=== PATIENT | female | born 1965 | race Caucasian/White ===

== ENCOUNTER 2020-08-24 19:03 | Outpatient (REF) | payer MEDICAID, SELFPAY ==
--- NOTE | 2020-08-24 19:45 | MR_ITS ---
EXAMINATION: MR LUMBAR SPINE WITHOUT CONTRAST CLINICAL INFORMATION: Spondylolisthesis. Sacroiliitis. COMPARISON: None available. TECHNIQUE: MRI of the lumbar spine was obtained using routine sequences without contrast. FINDINGS: Transitional vertebral anatomy. There is partial lumbarization of S1 with a rudimentary S1-S2 disc space. Minimal degenerative grade 1 anterolisthesis of L4 on L5. Otherwise, normal anatomic alignment. Mild degenerative disc disease from L2-L5 with partial disc desiccation. Mild marrow edema within the posterior elements of L5 suggestive of degenerative stress reaction. Otherwise, normal homogeneous marrow signal. The vertebral body heights are maintained. The conus medullaris is low-lying, terminating at the level of L3. No demonstrated distal spinal cord signal abnormalities. No demonstrated fatty deposition within the filum terminale. No significant abnormalities of the paraspinal musculature. Limited evaluation of the intra-abdominal structures without significant abnormalities. The abdominal aorta is of normal contour and caliber. AXIAL SPINAL LEVELS: T9-T10: Prominent central/left subarticular disc extrusion causing moderate spinal canal stenosis and mass effect on the cord. T12-L1: Shallow right subarticular protrusion. There is mild bilateral facet joint arthropathy. There is no neural foraminal stenosis. There is no spinal canal stenosis. L1-L2: Shallow diffuse disc bulge. There is mild bilateral facet joint arthropathy. There is no neural foraminal stenosis. There is no spinal canal stenosis. L2-L3: Shallow diffuse disc bulge. There is moderate bilateral facet joint arthropathy. There is no neural foraminal stenosis. There is no spinal canal stenosis. L3-L4: Shallow diffuse disc bulge. There is moderate bilateral facet joint arthropathy. There is no neural foraminal stenosis. There is no spinal canal stenosis. L4-L5: Mild diffuse disc bulge. There is severe bilateral facet joint arthropathy with ligamentum flavum hypertrophy. There is mild bilateral neural foraminal stenosis. There is mild to moderate spinal canal stenosis. L5-S1: Mild diffuse disc bulge. There is severe right and moderate left facet joint arthropathy. There is moderate right and mild left neural foraminal stenosis. There is no spinal canal stenosis. MR/MR lumbar spine wo con IMPRESSION: Transitional vertebral anatomy. There is partial lumbarization of S1. Detailed level verification should be obtained prior to any procedures. 1. Prominent disc extrusion at T9-T10 causing moderate spinal canal stenosis and mass effect on the distal spinal cord. 2. The spinal cord is mildly low lying with tip terminating at the level of L3. No demonstrated fatty deposition within the filum terminale. 3. Moderate multilevel degenerative spondyloarthropathy of the lumbar spine as described in detail above. There is mild to moderate spinal canal stenosis at L4-L5. Mild to moderate neural foraminal stenoses at L4-L5 and L5-S1 (worst on the right at L5-S1).
== END 2020-08-24 19:04 | disposition home or self-care (01) ==
LOC: HO.MRI 19:03
PROVIDERS: PCP Emergency Medicine; Visit Provider Emergency Medicine
DX: M43.10 Spondylolisthesis, site unspecified (principal); M46.1 Sacroiliitis, not elsewhere classified
CPT/HCPCS: 72148

== ENCOUNTER 2020-11-01 15:24 | Outpatient (REF) | payer MEDICAID, SELFPAY | END 2020-11-01 15:25 | disposition home or self-care (01) | LOC: HO.LAB 15:24 | PROVIDERS: Visit Provider Internal Medicine | DX: Z20.822 Contact with and (suspected) exposure to COVID-19 (principal) | CPT/HCPCS: 36415; C9803; U0003 ==

== ENCOUNTER 2020-12-18 13:55 | Inpatient (IN) | payer MEDICAID, SELFPAY ==
--- NOTE | ~2020-12-18 | CT_ITS ---
EXAMINATION: CT ABDOMEN AND PELVIS WITHOUT CONTRAST CLINICAL INFORMATION: Abdominal pain, vomiting. Multiple surgeries. COMPARISON: 08/07/2010. MRI lumbar spine dated 08/24/2020 TECHNIQUE: Multidetector volumetric imaging was performed from the superior aspect of the liver through the pubic symphysis. Sagittal and coronal reformatted images were obtained on the technologist's workstation. This CT examination was performed using dose optimization techniques as appropriate, variously including the following: *Automated exposure control *Adjustment of mA and/or kV according to patient size (this includes techniques or standardized protocols for targeted exams where dose is matched to indication/reason for exam; i.e. extremities or head) *Use of iterative reconstruction technique DLP: 461 mGy-cm FINDINGS: LUNG BASES: The visualized lung bases are unremarkable. LIVER, GALLBLADDER, AND BILIARY TREE: The liver is normal in size, shape, and attenuation. Stable 1.2 cm cysts, subcapsular aspect of hepatic segment 7. No suspicious hepatic lesion or biliary ductal dilatation is present. c cholecystectomy. PANCREAS: Unremarkable. SPLEEN: Unremarkable. ADRENAL GLANDS: Unremarkable. KIDNEYS AND URETERS: The kidneys are normal in size, shape, and attenuation. No hydronephrosis, hydroureter, or calculi seen. No perinephric stranding. BLADDER: Unremarkable. GASTROINTESTINAL TRACT / ABDOMINAL WALL: There is a large periumbilical hernia containing a nonobstructed portion of the transverse colon, as well as a segment of the distal ileum. The herniated portion of the distal ileum is moderately dilated, however the efferent and afferent limbs of the small bowel are not dilated. The herniated loop of small bowel shows evidence of previous small bowel small bowel anastomosis. No significant enteric or perienteric inflammation. Diastasis of the rectus abdominis. LYMPH NODES: Normal. VASCULAR: Aorta mildly atherosclerotic but normal caliber.. PELVIC VISCERA: Uterus and adnexa unremarkable. OSSEOUS STRUCTURES: No acute or suspicious osseous abnormalities. CT/CT abdomen pelvis wo con IMPRESSION: Again seen is a large paraumbilical hernia containing a segment of the nonobstructed transverse colon and a loop of nonobstructed previously operated on distal ileum. No evidence of obstruction.
[2020-12-18 14:22] VITALS: BP 128/98; PULSE 86; RESP 18; TEMP 36.8; O2SAT 98; BMI 30.1
--- NOTE | 2020-12-18 15:37 | ED.GENADULT ---
HPI - General Adult General Chief complaint: Abdominal Pain Stated complaint: abd pain Time Seen by Provider: 12/18/20 15:18 Source: patient Mode of arrival: ambulatory Limitations: no limitations History of Present Illness HPI narrative: 55-year-old female who presents emergency department for evaluation diffuse abdominal pain x4 days. The patient states that she has developed a diffuse, burning sensation throughout her entire abdomen, worse in her lower abdominal area which is been intermittent. She also feels pain in her lower back. She denied nausea or vomiting. She states she has had loss of appetite. She has noted increased urinary frequency with no dysuria. She states she had 1 loose diarrheal stool today with no blood noted in the stool. The patient states that she has had multiple surgeries and has had 2 bowel obstructions in the past. She is concerned that she may have a bowel obstruction again today. The patient states she was having back pain 1 or 2 weeks prior and was started on Voltaren, was then started on prednisone with some improvement of her lower back pain. The patient has a surgical history of an appendectomy, cholecystectomy, C-sections x4, hernia repair, bilateral tubal ligation. Related Data Allergies Allergy/AdvReac Type Severity Reaction Status Date / Time penicillin V Allergy Intermediate rash Unverified 12/18/20 14:21 Penicillins Allergy Intermediate SWELLING, Unverified 12/18/20 14:21 WELASHLI Review of Systems Review of Systems: Yes all other systems are reviewed and are negative Neurologic: Reports Abnormal speech present [facility] Past Medical History [facility] Narrative: Past medical history separate hypertension, GERD, appendectomy, cholecystectomy, x4, bilateral tubal ligation, hernia repair, bowel obstructions x2. The patient denies tobacco, alcohol and drug use. Medical History (Updated 12/18/20 @ 17:17 by Timothy Ibarra MD) Abdominal pain Anemia Asthma Bowel obstruction HTN (hypertension) Hypertension Recurrent incisional hernia Surgical History Hx of appendectomy Hx of cholecystectomy Social History Social History Advance Directives: No Advance Directives Information Provided: Yes Physical Exam Vital Signs: Vital Signs: Last Vital Signs Temp 98.3 F 12/18/20 14:22 Pulse 86 12/18/20 14:22 Resp 18 12/18/20 14:22 BP 128/98 H 12/18/20 14:22 Pulse Ox 98 12/18/20 14:22 Body Mass Index 30.1 Const: General: cooperative Orientation/consciousness: oriented to person and oriented to place Limitations: no limitations HENMT: Head: Yes normal to inspection, Yes normocephalic and Yes atraumatic Ears: external ears normal General nose exam: Normal external nose present Face and sinus: Yes normal facial exam Mouth: Normal oral and palatal mucosa present Throat: Yes posterior oropharynx normal Eyes: Periorbital: periorbital findings normal Eyelids: Yes eyelids normal Conjunctivae: conjunctivae normal Sclerae: sclerae normal Corneas: corneas normal Pupils: Equal, round and reactive pupils present Direct Ophthalmoscopy: normal light reflex Neck: Neck: Yes full ROM, Yes no lymphadenopathy, Yes no meningeal signs, Yes trachea midline and Yes supple Chest: Chest palpation & inspection: normal inspection of the chest and normal palpation of entire chest wall Resp: Effort & Inspection: normal respiratory effort and able to speak in complete sentences Auscultation: clear to auscultation bilaterally Cardio: Rate: regular rate Rhythm: regular rhythm Heart sounds: S1 normal heart sound present, S2 normal heart sound present and no murmurs GI: Palpation (GI): Soft to palpation, Tenderness to palpation present (GI) (Diffuse, increased over her left lower quadrant hernia), no guarding, not rigid and No hepatosplenomegaly present : General: Yes no CVA tenderness Back/Spine/Pelvis: Back: no CVA tenderness Cervical Spine: normal cervical lordosis Thoracic/Lumbar Spine: thoracic and lumbar spine normal to inspection Skin: Lesions: no lesions Rashes: no rashes Wounds: no wounds Neuro: General: oriented to person, oriented to place and no meningeal signs Cranial nerves: Yes CN's II-XII intact bilaterally and Yes Equal, round and reactive pupils present Cognition (Neuro): normal cognition Speech: Abnormal speech present Motor exam (neuro): 5/5 motor strength present throughout Extrem: General: Yes normal to inspection and Yes full ROM Psych: Appearance: well kempt Mental Status: mental status grossly normal Speech and movement: Normal speech and movement present Affect: normal affect Attitude: cooperative Thought process: Normal thought process present Thought content: Normal thought content present Course Course Course Narrative: 55-year-old female with a history of multiple surgeries and bowel obstructions in the past who presents emergency department for evaluation of 4 days of diffuse burning like abdominal pain associated with loss of appetite. She has had no nausea or vomiting. She did have a loose diarrheal stool today. Physical examination did reveal diffuse tenderness with increased tenderness over a left lower quadrant hernia which is large. Concerned that the patient may have a bowel obstruction. Did order laboratory evaluation and a CT abdomen pelvis with IV contrast. Patient was ordered to get Dilaudid 1 mg IV for pain. She was also given Zofran 4 mg IV . She was ordered to get normal saline x1 L IV as well. 1655: The patient's laboratory evaluation revealed a low white blood count of 4400, slightly elevated BUN of 24, negative COVID-19, otherwise unremarkable results. The CT scan of the patient's abdomen pelvis did not reveal a clear bowel obstruction. The patient got some improvement with IV Dilaudid but her pain has not returned. She was ordered to get a 2nd dose of Dilaudid 1 mg IV. I did consult the on-call surgeon, Dr. Anmol Gorman who did evaluate the patient. Dr. Gorman well that the patient to his service for further management of her abdominal pain. 1717: Patient's urinalysis is pending, I did sign the patient over to my colleague, Dr. Emilie Sharp to follow up on this result. Medical Decision Making Lab Data Result diagrams: 12/18/20 15:54 12/18/20 15:54 Labs: Lab Results 12/18/20 12/18/20 12/18/20 Range/Units 15:54 15:54 15:54 WBC 4.4 L (4.8-10.8) X10*3/uL RBC 4.94 (4.20-5.50) X10*6/uL Hgb 13.7 (12.0-16.0) g/dl Hct 40.9 (37-47) % MCV 82.8 (80-98) fL MCH 27.7 (27.0-33.0) pg MCHC 33.5 (31.0-35.0) g/dl RDW 13.4 (11.0-16.0) % Plt Count 311 (160-400) X10*3/uL MPV 9.5 (9.4-12.3) fL Immature Gran % (Auto) 0.2 (0.0-0.4) % Neut % (Auto) 58.0 (45-73) % Lymph % (Auto) 32.4 (20-40) % [place] % (Auto) 7.6 (2-11) % Eos % (Auto) 0.9 (0-4) % Baso % (Auto) 0.9 (0-2) % Lymph # (Auto) 1.4 (1.2-4.9) X10*3/uL [place] # (Auto) 0.3 (0.1-1.2) X10*3/uL Eos # (Auto) 0.0 (0.0-0.4) X10*3/uL Baso # (Auto) 0.0 (0.0-0.2) X10*3/uL Abs Immat Gran (auto) 0.01 (0.00-0.03) X10*3/uL Absolute Neuts (auto) 2.5 (2.0-8.3) X10*3/uL Absolute Nucleated RBC 0.000 (0.0-0.012) X10*3/uL Nucleated RBC % (auto) 0.0 (0.0-0.2) /100WBC PT 14.1 H (10.8-13.0) SEC INR 1.2 H (0.9-1.1) APTT 32.6 (24.1-38.0) SEC Sodium 139 (135-145) mmol/L Potassium 3.8 (3.3-5.1) mmol/L Chloride 97 (96-108) mmol/L Carbon Dioxide 29 (22-29) mmol/L Anion Gap 17 (12-20) BUN 24 H (9-16) mg/dL Creatinine 0.99 (0.5-1.4) mg/dL Estim Creat Clear Calc 51.9 Estimated GFR 58 Random Glucose 98 (60-115) mg/dL Lactic Acid (0.5-2.0) mmol/L Calcium 10.0 (8.4-10.2) mg/dL Total Bilirubin 0.6 (0.0-1.0) mg/dL AST 18 (5-31) U/L ALT 16 (0-31) U/L Alkaline Phosphatase 96 (39-117) U/L Total Protein 8.1 H (6.5-8.0) g/dL Albumin 5.0 (3.5-5.0) g/dL Lipase 54 (8-78) U/L COVID-19 (TONIE) (Negative) COVID-19 Clin Com 12/18/20 12/18/20 Range/Units 15:54 15:54 WBC (4.8-10.8) X10*3/uL RBC (4.20-5.50) X10*6/uL Hgb (12.0-16.0) g/dl Hct (37-47) % MCV (80-98) fL MCH (27.0-33.0) pg MCHC (31.0-35.0) g/dl RDW (11.0-16.0) % Plt Count (160-400) X10*3/uL MPV (9.4-12.3) fL Immature Gran % (Auto) (0.0-0.4) % Neut % (Auto) (45-73) % Lymph % (Auto) (20-40) % [place] % (Auto) (2-11) % Eos % (Auto) (0-4) % Baso % (Auto) (0-2) % Lymph # (Auto) (1.2-4.9) X10*3/uL [place] # (Auto) (0.1-1.2) X10*3/uL Eos # (Auto) (0.0-0.4) X10*3/uL Baso # (Auto) (0.0-0.2) X10*3/uL Abs Immat Gran (auto) (0.00-0.03) X10*3/uL Absolute Neuts (auto) (2.0-8.3) X10*3/uL Absolute Nucleated RBC (0.0-0.012) X10*3/uL Nucleated RBC % (auto) (0.0-0.2) /100WBC PT (10.8-13.0) SEC INR (0.9-1.1) APTT (24.1-38.0) SEC Sodium (135-145) mmol/L Potassium (3.3-5.1) mmol/L Chloride (96-108) mmol/L Carbon Dioxide (22-29) mmol/L Anion Gap (12-20) BUN (9-16) mg/dL Creatinine (0.5-1.4) mg/dL Estim Creat Clear Calc Estimated GFR Random Glucose (60-115) mg/dL Lactic Acid 1.1 (0.5-2.0) mmol/L Calcium (8.4-10.2) mg/dL Total Bilirubin (0.0-1.0) mg/dL AST (5-31) U/L ALT (0-31) U/L Alkaline Phosphatase (39-117) U/L Total Protein (6.5-8.0) g/dL Albumin (3.5-5.0) g/dL Lipase (8-78) U/L COVID-19 (TONIE) Negative (Negative) COVID-19 Clin Com See Note Imaging Data CT abdomen/pelvis with IV contrast: Radiologist's impression: EXAMINATION: CT ABDOMEN AND PELVIS WITHOUT CONTRAST CLINICAL INFORMATION: Abdominal pain, vomiting. Multiple surgeries. COMPARISON: 08/07/2010. MRI lumbar spine dated 08/24/2020 TECHNIQUE: Multidetector volumetric imaging was performed from the superior aspect of the liver through the pubic symphysis. Sagittal and coronal reformatted images were obtained on the technologist's workstation. This CT examination was performed using dose optimization techniques as appropriate, variously including the following: *Automated exposure control *Adjustment of mA and/or kV according to patient size (this includes techniques or standardized protocols for targeted exams where dose is matched to indication/reason for exam; i.e. extremities or head) *Use of iterative reconstruction technique DLP: 461 mGy-cm FINDINGS: LUNG BASES: The visualized lung bases are unremarkable. LIVER, GALLBLADDER, AND BILIARY TREE: The liver is normal in size, shape, and attenuation. Stable 1.2 cm cysts, subcapsular aspect of hepatic segment 7. No suspicious hepatic lesion or biliary ductal dilatation is present. c cholecystectomy. PANCREAS: Unremarkable. SPLEEN: Unremarkable. ADRENAL GLANDS: Unremarkable. KIDNEYS AND URETERS: The kidneys are normal in size, shape, and attenuation. No hydronephrosis, hydroureter, or calculi seen. No perinephric stranding. BLADDER: Unremarkable. GASTROINTESTINAL TRACT / ABDOMINAL WALL: There is a large periumbilical hernia containing a nonobstructed portion of the transverse colon, as well as a segment of the distal ileum. The herniated portion of the distal ileum is moderately dilated, however the efferent and afferent limbs of the small bowel are not dilated. The herniated loop of small bowel shows evidence of previous small bowel small bowel anastomosis. No significant enteric or perienteric inflammation. Diastasis of the rectus abdominis. LYMPH NODES: Normal. VASCULAR: Aorta mildly atherosclerotic but normal caliber.. PELVIC VISCERA: Uterus and adnexa unremarkable. OSSEOUS STRUCTURES: No acute or suspicious osseous abnormalities. CT/CT abdomen pelvis wo con IMPRESSION: Again seen is a large paraumbilical hernia containing a segment of the nonobstructed transverse colon and a loop of nonobstructed previously operated on distal ileum. No evidence of obstruction. Dictated By:LISBET MCKINNON MDSigned By:<Electronically signed by LISBET MCKINNON MD in [place]>12/18/20 1649 DD/ 1536TD/TT: [employer]uation Funds Manager: KEISHA Discharge Plan Discharge Clinical Impression: Abdominal pain Patient Disposition: Admitted As Inpatient
[2020-12-18 16:04] LABS: MANUAL DIFF FLAG NO
[2020-12-18 16:05] LABS: Basophils Percent Auto 0.9 % (0-2); Eosinophils Percent Auto 0.9 % (0-4); Hematocrit 40.9 % (37-47); Hemoglobin 13.7 g/dl (12.0-16.0); Imm Gran Abs Auto 0.01 X10*3/uL (0.00-0.03); Imm Gran Pct Auto 0.2 % (0.0-0.4); Lymphocytes Absolute Auto 1.4 X10*3/uL (1.2-4.9); Lymphocytes Percent Auto 32.4 % (20-40); Mean Corpuscular HGB Conc 33.5 g/dl (31.0-35.0); Mean Corpuscular Hemoglobin 27.7 pg (27.0-33.0); Mean Corpuscular Volume 82.8 fL (80-98); Mean Platelet Volume 9.5 fL (9.4-12.3); Monocytes Absolute Auto 0.3 X10*3/uL (0.1-1.2); Monocytes Percent Auto 7.6 % (2-11); Neutrophils Absolute Auto 2.5 X10*3/uL (2.0-8.3); Platelet Count 311 X10*3/uL (160-400); Red Blood Count 4.94 X10*6/uL (4.20-5.50); Red Cell Distribution Width 13.4 % (11.0-16.0); White Blood Count 4.4 X10*3/uL (4.8-10.8)
[2020-12-18 16:13] LABS: INTERNATIONAL NORM RATIO 1.2 (0.9-1.1); Prothrombin Time 14.1 SEC (10.8-13.0)
[2020-12-18 16:15] LABS: Partial Thromboplastin Time 32.6 SEC (24.1-38.0)
[2020-12-18] MEDS: HYDROmorphone HCl 1 MG/ML SYRINGE IVPUSH ×2 (16:17→17:24)
[2020-12-18] MEDS: 0.9 % Sodium Chloride 1,000 ML 999 ML IV (16:17)
[2020-12-18] MEDS: ondansetron HCL 4 MG/2 ML VIAL IVPUSH (16:17)
[2020-12-18 16:19] LABS: COVID-19 Test Negative (Negative)
[2020-12-18 16:21] LABS: Lactic Acid 1.1 mmol/L (0.5-2.0)
[2020-12-18 16:27] LABS: Alanine Aminotransferase 16 U/L (0-31); Alkaline Phosphatase 96 U/L (39-117); Anion Gap 17 (12-20); Aspartate Amino Transferase 18 U/L (5-31); Bilirubin Total 0.6 mg/dL (0.0-1.0); Blood Urea Nitrogen 24 mg/dL (9-16); Carbon Dioxide 29 mmol/L (22-29); Chloride 97 mmol/L (96-108); Creatinine Clr Calc Pharmacy 51.9; Estimated Glomerular Filt Rate 58; Glucose Random 98 mg/dL (60-115); Lipase 54 U/L (8-78); Potassium 3.8 mmol/L (3.3-5.1); Sodium 139 mmol/L (135-145); Total Protein 8.1 g/dL (6.5-8.0)
--- NOTE | 2020-12-18 16:48 | P.HPGS_ITS ---
History of Present Illness History of Present Illness Date of Service: 12/19/20 Chief complaint: abdominal pain, incisional hernia Narrative: Keren Dugan is a 55 year old female who came to the ED today because of abdominal pain. She says this ahs been going on for 5 days. She says she had talked to her PCP via a virtual visit yesterday and she was told she may have a UTI. However, her pain had persisted so she decided to come to he ED today,. She has had no vomitting although she describes some n[place]asea. She describes some loose stools even earlier today. She says she has been passing flatus consistently. She has had multiple abdominal surgeries. She describes 4 Csections, appe ndectomy, cholecystectomy and repair of incisional hernias x 2(?). reviewe of her records shows she ahd a laparotomy and repair of a ncarcerated incisional hernia with SB resection in [address] Simon. Review of Systems Constitutional: Constitutional: Denies chills and Denies fever(s) Cardiovascular: Cardiovascular: Denies chest pain, Denies dyspnea and Denies dyspnea on exertion Respiratory: Respiratory: Denies cough, Denies dyspnea and Denies dyspnea on exertion Gastrointestinal: Gastrointestinal: Denies hematochezia and Denies change in bowel habits Genitourinary: Genitourinary: Denies hematuria Musculoskeletal: Musculoskeletal: Denies back pain and Denies limited range of motion Neurologic: Denies focal weakness and Denies convulsions Psychiatric: Psychiatric: Denies depression and Denies mood swings PMFSH Past Medical History Medical History (Updated 12/18/20 @ 17:30 by Anmol Gorman MD) Abdominal pain Anemia Asthma Bowel obstruction Fibromyalgia HTN (hypertension) Hypertension Recurrent incisional hernia Surgical History Surgical History Hx of appendectomy Hx of cholecystectomy Social History Social History Household Members: None Housing: Apartment Do you presently have visiting nurse or other home services: No Smoking Status: Never smoker Smoked in Last 30 Days: No Use of substances other than those prescribed or required for medical reasons: No Have you been hit, kicked, punched, or otherwise hurt by someone within the past year? If so, by whom?: No Do you feel safe in your current relationship?: No Is there a partner from a previous relationship who is making you feel unsafe now?: No Are you made to feel afraid or neglected: No Advance Directives: No Advance Directives Information Provided: Yes Do you have thoughts of harming others: None Do you have a plan to hurt others: No Plan Recently lost weight without trying: Yes Meds Allergies Allergy/AdvReac Type Severity Reaction Status Date / Time penicillin V Allergy Intermediate rash Unverified 12/18/20 14:21 Penicillins Allergy Intermediate SWELLING, Unverified 12/18/20 14:21 WELTS Home Medications Medication Instructions Recorded Confirmed Last Taken Type hydrochlorothiazide 1 tab PO DAILY 12/18/20 12/18/20 Unknown History hyoscyamine 0.125 mg PO Q2-4H PRN 12/18/20 12/18/20 Unknown History Physical Exam Vital Signs: Vital Signs: Last Vital Signs Temp 98.3 F 12/18/20 14:22 Pulse 86 12/18/20 14:22 Resp 18 12/18/20 14:22 BP 128/98 H 12/18/20 14:22 Pulse Ox 98 12/18/20 14:22 Body Mass Index 30.1 Chemistry 12/18/20 15:54 Sodium 139 Potassium 3.8 Carbon Dioxide 29 BUN 24 H Creatinine 0.99 Calcium 10.0 Hematology 12/18/20 15:54 WBC 4.4 L Hgb 13.7 Plt Count 311 Const: Other: appears a little anxious General: no acute distress Orientation/consciousness: patient oriented x3 Neck: Neck: Yes no lymphadenopathy Resp: Auscultation: clear to auscultation bilaterally Cardio: Rhythm: regular rhythm GI: Other: large hernia, below umbilicus, easily reducible some tenderness but no guarding or rebound Palpation (GI): Soft to palpation and nontender Neuro: General: patient oriented x3 Extrem: General: No edema Results Results Labs: Short CBC 12/18/20 Range/Units 15:54 WBC 4.4 L (4.8-10.8) X10*3/uL Hgb 13.7 (12.0-16.0) g/dl Hct 40.9 (37-47) % Plt Count 311 (160-400) X10*3/uL BMP 12/18/20 15:54 Sodium 139 Potassium 3.8 Chloride 97 Carbon Dioxide 29 BUN 24 H Creatinine 0.99 Calcium 10.0 Liver Function 12/18/20 Range/Units 15:54 Total Bilirubin 0.6 (0.0-1.0) mg/dL AST 18 (5-31) U/L ALT 16 (0-31) U/L Alkaline Phosphatase 96 (39-117) U/L Albumin 5.0 (3.5-5.0) g/dL Abdomen CT scan report/results: report reviewed and image reviewed Assessment and Plan (1) Abdominal pain: Problem details: I have reviewed her CT scan images. This does not show any acute intraabdominal process. She has a large abdominal wall hernia with nonobstructed bowel loops. The fascial defect itself may be causing her pain. There is no inflammatory process that is seen. She does not have any vomitting and she is passing good flatus. I will admit her inv iew of her abdominal pain as he does state she is very uncomfortable with this and has been asking for pain meds. I will keep her NPO for now. Status: Acute (2) Recurrent incisional hernia: Problem details: Her hernia is easily reduced. Her CT scan shows bowel loops in the hernia that are nonobstructed. She says she thinks her hernia has been getting larger years now and has been more uncomfortable. I did assure her that she did not have any acute incarceration or obstruction at this time. Status: Acute Procedures Date of Service Date of Service: 12/19/20
[2020-12-18 17:23] VITALS: BP 144/86; PULSE 77; RESP 16; O2SAT 98
[2020-12-18] MEDS: Heparin Sodium,Porcine 5,000 UNIT/ML VIAL 5000 UNIT SUBCUT (17:25)
[2020-12-18] MEDS: 0.9 % Sodium Chloride 1,000 ML 100 ML IVCONT (17:41)
[2020-12-18] MEDS: Morphine Sulfate 2 MG/ML CARTRIDGE IVPUSH ×2 (19:13→22:24)
--- NOTE | 2020-12-18 19:14 | PC.NURSE ---
ASSUMED CARE OF PT. PT C/O ABD AND MEDICATED PER EMAR. PT AWAITING FOR ROOM ASSIGNMENT. PT ALERT, RESPIRATIONS EASY, N/L. SKIN W/D. WILL CONTINUE TO MONITOR PT.
[2020-12-18 21:48] VITALS: BP 135/74; PULSE 72; RESP 16
--- NOTE | 2020-12-18 21:52 | PC.NURSE ---
PT UP TO RESTROOM AND FORGOT URINE SAMPLE WILL CONTINUE TO TRY AND GET SAMPLE. PT UP WITH STEADY EVEN GAIT. PT C/O PAIN AND RATING PAIN 5/10. FLUIDS UP ON PUMP PER EMAR. HL INTACT. VS OBTAINED. PT REMAINS ALERT, RESPIRATIONS EASY, N/L. SKIN W/D. WILL CONTINUE TO MONITOR PT,
[2020-12-19] MEDS: 0.9 % Sodium Chloride Flush 3 ML SYRINGE IVFLUSH ×2 (00:17→08:20)
--- NOTE | 2020-12-19 00:22 | PC.NURSE ---
FLOOR UNABLE TO TAKE REPORT AT THIS TIME.
--- NOTE | 2020-12-19 01:22 | PC.NURSE ---
REPORT TO FLOOR. PT AWAITING FOR TRANSPORT TO FLOOR.
[2020-12-19 02:23] VITALS: BP 134/73; PULSE 76; RESP 18; TEMP 36.6; O2SAT 96
[2020-12-19] MEDS: 0.9 % Sodium Chloride 1,000 ML 100 ML IVCONT ×2 (02:31→11:20)
[2020-12-19 05:40] LABS: MANUAL DIFF FLAG NO
[2020-12-19 05:53] LABS: Basophils Percent Auto 0.6 % (0-2); Eosinophils Percent Auto 0.8 % (0-4); Hematocrit 34.9 % (37-47); Hemoglobin 11.6 g/dl (12.0-16.0); Imm Gran Abs Auto 0.01 X10*3/uL (0.00-0.03); Imm Gran Pct Auto 0.2 % (0.0-0.4); Lymphocytes Absolute Auto 1.7 X10*3/uL (1.2-4.9); Lymphocytes Percent Auto 32.6 % (20-40); Mean Corpuscular HGB Conc 33.2 g/dl (31.0-35.0); Mean Corpuscular Hemoglobin 27.6 pg (27.0-33.0); Mean Corpuscular Volume 83.1 fL (80-98); Mean Platelet Volume 9.9 fL (9.4-12.3); Monocytes Absolute Auto 0.4 X10*3/uL (0.1-1.2); Monocytes Percent Auto 6.7 % (2-11); Neutrophils Absolute Auto 3.1 X10*3/uL (2.0-8.3); Neutrophils Percent Auto 59.1 % (45-73); Platelet Count 262 X10*3/uL (160-400); Red Cell Distribution Width 13.3 % (11.0-16.0); White Blood Count 5.2 X10*3/uL (4.8-10.8)
[2020-12-19] MEDS: Heparin Sodium,Porcine 5,000 UNIT/ML VIAL 5000 UNIT SUBCUT (06:05)
[2020-12-19 06:31] LABS: Anion Gap 11 (12-20); Blood Urea Nitrogen 18 mg/dL (9-16); Calcium 8.3 mg/dL (8.4-10.2); Carbon Dioxide 29 mmol/L (22-29); Chloride 103 mmol/L (96-108); Creatinine Clr Calc Pharmacy 73.4; Estimated Glomerular Filt Rate > 60; Glucose Random 76 mg/dL (60-115); Potassium 3.6 mmol/L (3.3-5.1); Sodium 139 mmol/L (135-145)
[2020-12-19 07:23] VITALS: BP 163/90; PULSE 80; RESP 17; TEMP 36.2; O2SAT 98
[2020-12-19] MEDS: hydroCHLOROthiazide 12.5 MG TABLET PO (08:20)
--- NOTE | 2020-12-19 10:18 | PM.PNGS ---
Subjective Subjective Date of Service: 12/19/20 Interval history: feels much better pain had completely resolved last night she says she wants to eat and says she feels ready to go home Physical Exam Vital Signs: Vital Signs: Last Vital Signs Temp 97.2 F 12/19/20 07:23 Pulse 80 12/19/20 07:23 Resp 17 12/19/20 07:23 BP 163/90 H 12/19/20 07:23 Pulse Ox 98 12/19/20 07:23 Body Mass Index 30.1 Chemistry 12/18/20 12/19/20 15:54 04:48 Sodium 139 139 Potassium 3.8 3.6 Carbon Dioxide 29 29 BUN 24 H 18 H Creatinine 0.99 0.70 Calcium 10.0 8.3 L D Hematology 12/18/20 12/19/20 15:54 04:48 WBC 4.4 L 5.2 Hgb 13.7 11.6 L Plt Count 311 262 Const: General: comfortable and no acute distress Resp: Effort & Inspection: normal respiratory effort Cardio: Rhythm: regular rhythm GI: Other: soft, nondistended, palpable alrge hernia, reasily reducible, no tenderness Progress Note: A&P Assessment and plan (1) Abdominal pain: Status: Acute Assessment and Plan: Her pain has resolved completely Abdominal exam is very benign She has a large chronic hernia which is reducible easily Will restart diet Likely home later on today Patient looks well Etiology of pain uncertain - she was not obstructed on CT scan; pain may be from stretching of fascia and peritoneum with the hernia I did instruct her to see me in the office follow-up for her large reducible hernia She was comfortable with the above plan Fall Risk Details Current Medications: Current Medications Generic Name Dose Route Start Last Admin Trade Name Freq PRN Reason Stop Dose Admin Heparin Sodium (Porcine) 5,000 unit 12/18/20 18:00 12/19/20 06:05 Heparin Sodium,Porcine 5,000 Unit/Ml Vial SUBCUT 5,000 unit Q12H ADARSH Administration Hydrochlorothiazide 12.5 mg 12/19/20 09:00 12/19/20 08:20 Hydrochlorothiazide 12.5 Mg Tablet PO 12.5 mg DAILY ADARSH Administration Protocol Sodium Chloride 1,000 mls @ 100 mls/hr 12/18/20 17:15 12/19/20 02:31 Ns IVCONT 100 mls/hr .Q10H ADARSH Administration Morphine Sulfate 2 mg 12/18/20 17:15 12/18/20 22:24 Morphine Sulfate 2 Mg/Ml Cartridge IVPUSH 2 mg Q3H PRN Administration pain Ondansetron HCl 4 mg 12/18/20 17:15 Ondansetron Hcl 4 Mg/2 Ml Vial IVPUSH Q8H PRN nausea Pharmacy Consult 1 each 12/18/20 17:05 Consult Rx Perform Med Rec MISCELLANE ONCE PRN Consult order Sodium Chloride 3 ml 12/19/20 00:00 12/19/20 08:20 0.9 % Sodium Chloride Flush 3 Ml Syringe IVFLUSH 3 ml QSHIFT ADARSH Administration Time Spent With Patient Time: Total time spent is greater than 50% in coordination of care (as documented) at patient's floor/unit and/or counseling patient: Time with patient: 15 - 24 minutes Procedures Date of Service Date of Service: 12/19/20
[2020-12-19 11:36] VITALS: BP 140/90; PULSE 89; RESP 18; TEMP 36.4; O2SAT 98
[2020-12-19 11:39] LABS: Glucose Urine UA NEG (NEG); Leukocyte Esterase Urine NEG (NEG); Nitrite Urine NEG (NEG); Urine Blood NEG (NEG); Urine Ketones NEG (NEG); Urine Protein NEG (NEG-TRACE)
[2020-12-19 11:44] LABS: Appearance Urine CLEAR; Color Urine YELLOW
[2020-12-19 13:44] LABS: OBS Int Ctl Valid YES; OBS1 NEG (NEG)
--- NOTE | 2020-12-19 14:12 | MHC.CM.PN ---
PT REPORTS SHE LIVES ALONE AND IS FULLY INDEPENDENT. PT HAS NO IN HOME SERVICES AND NO DME. PT REPORTS SHE DOES NOT HAVE A HCP AND IS NOT INTERESTED IN COMPLETING ONE AT THIS TIME. A BLANK DOCUMENT AND INFORMATION WERE PROVIDED. PTS PCP IS VASU ANGEL. CURRENT DC PLAN IS HOME WITH NO SERVICES PT REPORTS SHE HAS A RIDE HOME
[2020-12-19 15:13] VITALS: BP 139/77; PULSE 94; RESP 19; TEMP 36.4; O2SAT 97
--- NOTE | 2020-12-19 15:45 | PM.EVENT ---
Event Note Date of Service: 12/19/20 Event Note: continues to feel well says she ate a lot no abdl pain at all no N/V abd soft, hernia reducible, nontender ok to nc home says she feels ready she says she will see me in the office for a ffup for her recurrent hernia
--- NOTE | 2020-12-21 12:20 | P.DS_ITS ---
DS: Providers Provider Date of Service: 12/21/20 Date of admission: 12/18/20 17:12 Primary care physician: Armando Salgado MD DS: Diagnosis Discharge Diagnosis (1) Abdominal pain: Status: Acute (2) Recurrent incisional hernia: Status: Acute DS: Medications Discharge Medications Home Medications: Home Medications Medication Instructions Recorded Confirmed hydrochlorothiazide 1 tab PO DAILY 12/18/20 12/18/20 hyoscyamine 0.125 mg PO Q2-4H PRN 12/18/20 12/18/20 DS: Summary Hospital Course Hospital Course: BRIEF HPI: Keren Dugan is a 55 year old female who came to the ED today because of abdominal pain for 5 days. She had talked to her PCP via a virtual visit yesterday and she was told she may have a UTI. However, her pain had persisted so she decided to come to the ED today. She has had no vomiting although she describes some nausea and some loose stools even earlier today. She says she has been passing flatus consistently. She has had multiple abdominal surgeries including 4 Csections, appendectomy, cholecystectomy and repair of incisional hernias x 2(?). Review of her records shows she had a laparotomy and repair of a incarcerated incisional hernia with SB resection [place] [address] Simon. HOSPITAL COURSE: She was admitted to the surgical service for further treatment of her abdominal pain. Her CT scan images does not show any acute intraabdominal process. Her large abdominal wall hernia does contain nonobstructed bowel loops and this was easily reducible. She had no obstructive symptoms. It was thought that maybe the fascial defect itself may be causing her pain. She was kept NPO and started on IVF. The following day, the patient reported complete resolution of her abdominal pain with a bowel movement. She felt hungry. She was started on a solid diet. She was reassessed later in the day and she continued to feel well without any abdominal pain, nausea or vomiting. Her abdomen remained benign. She felt ready for discharge. She was discharged to home on 12/19/20 in stable condition. The etiology of her pain remained uncertain, as she was not obstructed on CT sca n; pain may be from stretching of fascia and peritoneum with the hernia. She is to follow up with Dr. Gorman in the office regarding the large, reducible hernia. Status at Discharge Functional status at discharge: independent ambulation Overall status at discharge: patient is back to baseline Time Spent with Patient Time attestation: Total time spent providing and/or coordinating discharge services: Discharge coordination time: Less than 30 minutes Physical Exam Vital Signs: Vital Signs: Last Vital Signs Temp 97.5 F 12/19/20 15:13 Pulse 94 12/19/20 15:13 Resp 19 12/19/20 15:13 BP 139/77 12/19/20 15:13 Pulse Ox 97 12/19/20 15:13 Body Mass Index 30.1 Const: General: comfortable, no acute distress and alert Orientation/consciousness: patient oriented x3 Eyes: Sclerae: sclerae normal Resp: Effort & Inspection: normal respiratory effort GI: Inspection: No distended Palpation (GI): Soft to palpation, nontender, no guarding, not rigid, Hernia present (inferior to umbilicus, soft and reducible) and No Rebound tenderness present Percussion: Yes normal to percussion Skin: General skin exam: no rashes or lesions noted Neuro: General: patient oriented x3 Extrem: General: Yes no clubbing, cyanosis or edema DS: Data Data Completed and Pending Labs on day of discharge: Preliminary micro results at discharge 12/18/20 16:19 Blood Culture - Preliminary Blood - Venous No growth after 48 hours. 12/18/20 15:55 Blood Culture - Preliminary Blood - Venous No growth after 48 hours. Discharge Plan Discharge Patient Disposition: Home, Self-Care Referrals: Name,MD Armando [Primary Care Provider] - Discharge Medications: Continued hydrochlorothiazide 25 mg tablet 1 tab PO DAILY RF: 0 hyoscyamine 0.15 mg Tablet 0.125 mg PO Q2-4H PRN (Reason: Stomach Upset) RF: 0 Discharge Orders: Discharge Order (Routine); Ordered 12/19/20 Ordered By: Anmol Gorman Diet: advance to usual diet Activity on Discharge: As tolerated Stand Alone Forms: Patient Portal Discharge page Activity Restrictions/Additional Instructions: ffup in the office as needed - [phone] Care Plan Goals: control anxiety issues ffup for hernia, reducible Health Concerns: has HTN, anxiety Plan of Treatment: ffup in office pt to call her PCP as well for ffup re anxiety issues Discharge Date/Time: 12/19/20 16:17
== END 2020-12-19 16:17 | disposition home or self-care (01) | DRG 254 ==
LOC: HO.ED 17:20 → HO.EDOVER 17:23 → HO.IMC 23:55
PROVIDERS: Admitting Provider Surgery; Emergency Provider Emergency Medicine Emergency Medical Services; PCP Internal Medicine Geriatric Medicine; Visit Provider Surgery
DX: K43.2 Incisional hernia without obstruction or gangrene (principal); Z20.822 Contact with and (suspected) exposure to COVID-19; Z88.0 Allergy status to penicillin
CPT/HCPCS: 36415; 74176; 80048; 80053; 81003; 82272; 83605; 83690; 85025; 85610; 85730; 87040; 87086; 87635; 96361; 96374; 96375; 96376; 99219; 99285; J1170; J2270; J2405

== ENCOUNTER → 2020-12-23 09:57 | Outpatient (BNVA) | payer MEDICAID, SELFPAY | PROVIDERS: PCP Internal Medicine Geriatric Medicine; Visit Provider Surgery | DX: K43.2 Incisional hernia without obstruction or gangrene (principal) | CPT/HCPCS: 99212 ==

== ENCOUNTER 2020-12-27 08:00 | Outpatient (REF) | payer MEDICAID, SELFPAY ==
[2020-12-28 09:21] LABS: BV Int Neg Control Negative (Negative); BV Int Pos Control Positive (Positive)
[2020-12-28 13:32] LABS: C. trachomatis RNA TMA NOT DETECTED (NOT DETECTED); N. gonorrhoeae RNA TMA NOT DETECTED (NOT DETECTED)
[2020-12-29 18:11] LABS: HPV mRNA E6/E7 rflx Not Detected (Not Detected)
== END 2020-12-27 08:01 | disposition home or self-care (01) ==
LOC: HO.LAB 08:00
PROVIDERS: PCP Internal Medicine Geriatric Medicine; Visit Provider Obstetrics & Gynecology
DX: Z01.419 Encounter for gynecological examination (general) (routine) without abnormal findings (principal); Z11.51 Encounter for screening for human papillomavirus (HPV)
CPT/HCPCS: 36415; 87480; 87491; 87510; 87591; 87624; 87660; 88142

== ENCOUNTER → 2021-01-12 11:13 | Outpatient (BNVA) | payer MEDICAID, SELFPAY | PROVIDERS: PCP Internal Medicine Geriatric Medicine; Visit Provider Surgery | DX: K64.4 Residual hemorrhoidal skin tags (principal); K64.8 Other hemorrhoids | CPT/HCPCS: 46600; 99212 ==

== ENCOUNTER 2021-01-21 08:32 | Emergency (ER) | payer MEDICAID, SELFPAY ==
[2021-01-21 08:51] VITALS: BP 166/90; PULSE 91; RESP 16; TEMP 36.7; O2SAT 99; BMI 29.8
--- NOTE | 2021-01-21 09:13 | ED_ITS ---
HPI - Dental/Oral General Chief complaint: Dental/Oral Stated complaint: dental pain Time Seen by Provider: 01/21/21 08:58 Source: patient Mode of arrival: ambulatory Limitations: no limitations History of Present Illness HPI Narrative: 55 y/o female with recently diagnosed dental and gingival infection in her upper molars bilaterally presents to the ER with pain and tingling in her face that radiates to her ears. She has some pain with chewing and then randomly throughout the day. She states she is worried she has a brain tumor causing the tingling. She just saw her dentist 2 days ago who prescribed her Azithromycin for the infection and referred her to an oral surgeon for next Sunday. She has 4 teeth that need to be extracted. She denies facial swelling, fevers, difficulty eating or fully opening her jaw. She is very anxious on arrival. MD Complaint: tooth pain Location: Tooth # (2,5, 14 & 16) Onset (ago): day(s) (2-3) Duration: constant Severity: moderate Relieving factors: nothing Exacerbating factors: chewing and cold Context: history of dental caries and poor dental care Associated symptoms: gum swelling and ear pain Treatment prior to arrival: none Related Data Home Medications Medication Instructions Recorded Confirmed hydrochlorothiazide 1 tab PO DAILY 12/18/20 01/12/21 hyoscyamine 0.125 mg PO Q2-4H PRN 12/18/20 01/12/21 paroxetine HCl 20 mg tablet 20 mg PO DAILY 01/12/21 Previous Rx's Medication Instructions Recorded menthol 0.44 %-zinc oxide 20.6 % 1 appl TOPICAL QID PRN #71 g 01/12/21 topical ointment clindamycin HCl 300 mg PO Q8H #21 cap 01/21/21 Allergies Allergy/AdvReac Type Severity Reaction Status Date / Time penicillin V Allergy Intermediate rash Verified 01/12/21 11:22 Penicillins Allergy Intermediate SWELLING, Verified 01/12/21 11:22 TSERING Review of Systems Review of Systems: Constitutional: No Fever, No Chills ENT/Mouth: No sore throat, No Rhinorrhea, No Swallowing Difficulty, +dental pain, +gingival pain Eyes: No Eye Pain, No Swelling, No Redness Cardiovascular: No Chest Pain, No SOB Gastrointestinal: No Nausea, No Vomiting Musculoskeletal: No joint pain, No Myalgias Skin: No Skin Lesions, No rash Neuro: No Weakness, No Numbness, No Dizziness, + Headache Psych: +Anxiety/Panic, No Depression Heme/Lymph: No Bruising, No Lymphadenopathy PMFSH Past Medical History Attestation statement: The following information was validated with the patient. Medical History Abdominal pain Anemia Asthma Bowel obstruction Fibromyalgia HTN (hypertension) Hypertension Internal and external hemorrhoids without complication Recurrent incisional hernia Surgical History Hx of appendectomy Hx of cholecystectomy Family History Family History Sister History of colon cancer Social History Social History Household Members: None Housing: Apartment Smoking Status: Never smoker Smoked in Last 30 Days: No Use of substances other than those prescribed or required for medical reasons: No Advance Directives: No Advance Directives Information Provided: No service: No Current occupational status: unemployed Physical Exam Vital Signs: Vital Signs: Last Vital Signs Temp 98.1 F 01/21/21 08:51 Pulse 91 01/21/21 08:51 Resp 16 01/21/21 08:51 BP 166/90 H 01/21/21 08:51 Pulse Ox 99 01/21/21 08:51 Body Mass Index 29.8 Const: General: cooperative, healthy appearing and acute distress Nutriti onal Appearance: average body habitus Orientation/consciousness: patient oriented x3 HENMT: Head: Yes normal to inspection Ears: hearing grossly normal bilaterally General nose exam: Normal external nose present Face and sinus: Yes normal facial exam and Yes sinuses nontender Mouth: Normal oral and palatal mucosa present, lip normal, tongue normal, moist mucous membranes, no audible dysphonia and no drooling Teeth and gingiva: abnormal tooth and associated gingiva upper left tender and with associated gingival edema; without associated gingival fluctuance, gingiva abnormal edematous, diffusely erythematous and tender and poor dentition Throat: Yes posterior oropharynx normal Eyes: General: appearance normal, both eyes and all related structures Neck: Neck: Yes normal visual inspection, Yes full ROM, Yes no lymphadenopathy, Yes trachea midline, Yes supple and No anterior neck swelling Chest: Chest palpation & inspection: normal inspection of the chest Resp: Effort & Inspection: normal respiratory effort and able to speak in complete sentences Skin: General skin exam: no rashes or lesions noted Neuro: General: patient oriented x3 Psych: Appearance: grossly normal and well kempt Affect: Anxious affect present Thought process: Racing thoughts present Course Course Course Narrative: 55 y/o female presenting with dental pain and gingival pain along with facial tingling. She was prescribed Azithromyin for infection given PCN allergy. Exam did not reveal any evidence of dental abscess, airway involvement or focal neurological deficit. She is anxious and needed extensive reassurance and education. We discussed a plan to change antibiotics to clindamycin for better oral coverage. She has an appointment with oral surgeon on Sunday. She is stable for discharge home. Patient agreeable with plan. Discharge Plan Discharge Clinical Impression: Dental caries, Acute gingivitis Patient Disposition: Home, Self-Care Instructions: Gingivitis (ED) Additional Instructions: STOP taking the Azithromycin START taking Clindamycin as directed Recommend taking a Probiotic while you are taking Clindamycin. This can be purchased at the pharmacy over the counter Recommend taking Tylenol 1,000 mg every 6 hours Follow up with your oral surgeon on Sunday as scheduled If you have worsening symptoms come back to the ER for further evaluation Prescriptions: New clindamycin HCl 300 mg capsule 300 mg PO Q8H Qty: 21 RF: 0 No Action hydrochlorothiazide 25 mg tablet 1 tab PO DAILY RF: 0 hyoscyamine 0.15 mg Tablet 0.125 mg PO Q2-4H PRN (Reason: Stomach Upset) RF: 0 paroxetine HCl [Paxil] 20 mg tablet 20 mg PO DAILY RF: 0 Calmoseptine 0.44-20.6 % ointment 1 appl topical QID PRN (Reason: perianal burning) Qty: 71 RF: 0 Interventions: ED Discharge Assessment Last Done: 01/21/21 09:24 Discharge Date/Time: 01/21/21 09:25
== END 2021-01-21 09:25 | disposition home or self-care (01) ==
PROVIDERS: Emergency Provider Emergency Medicine; PCP Internal Medicine Geriatric Medicine
DX: K08.89 Other specified disorders of teeth and supporting structures (principal); K02.9 Dental caries, unspecified; K05.10 Chronic gingivitis, plaque induced; I10 Essential (primary) hypertension; D64.9 Anemia, unspecified
CPT/HCPCS: 99283

== ENCOUNTER 2021-01-31 17:50 | Emergency (ER) | payer MEDICAID, SELFPAY ==
[2021-01-31 20:13] VITALS: BP 171/90; PULSE 79; RESP 18; TEMP 36.7; O2SAT 99; BMI 29.9
[2021-01-31 23:29] VITALS: BP 159/102; PULSE 83; RESP 18; TEMP 36.8; O2SAT 100
--- NOTE | 2021-02-01 00:11 | ED_ITS ---
HPI - Dental/Oral General Chief complaint: General Medical Stated complaint: Difficulty swallowing Time Seen by Provider: 01/31/21 20:59 Source: patient Mode of arrival: ambulatory History of Present Illness HPI Narrative: This is a 55-year-old female who presents with oral discomfort after having 4 teeth removed on . She denies any fevers, chills, shortness of breath or chest pain, but states that since her dental procedure she has had significant acid reflux after being placed on ibuprofen for pain control. In addition to this she has had a bad taste in her mouth and feels the burning sensation in the back of her throat. Otherwise, she denies any fever, chills, nausea, vomiting, abdominal pain, or obstipation. Her last bowel movement was today. Related Data Home Medications Medication Instructions Recorded Confirmed hydrochlorothiazide 1 tab PO DAILY 12/18/20 01/12/21 hyoscyamine 0.125 mg PO Q2-4H PRN 12/18/20 01/12/21 paroxetine HCl 20 mg tablet 20 mg PO DAILY 01/12/21 Previous Rx's Medication Instructions Recorded menthol 0.44 %-zinc oxide 20.6 % 1 appl TOPICAL QID PRN #71 g 01/12/21 topical ointment clindamycin HCl 300 mg PO Q8H #21 cap 01/21/21 Allergies Allergy/AdvReac Type Severity Reaction Status Date / Time penicillin V Allergy Intermediate rash Verified 01/31/21 20:13 Penicillins Allergy Intermediate SWELLING, Verified 01/31/21 20:13 WELTS Review of Systems Review of Systems: Pertinent positives and negatives as stated in HPI and 10 point review of systems is otherwise negative. [facility] Past Medical History Source: nursing notes reviewed Medical History Abdominal pain Anemia Asthma Bowel obstruction Fibromyalgia HTN (hypertension) Hypertension Internal and external hemorrhoids without complication Recurrent incisional hernia Surgical History Hx of appendectomy Hx of cholecystectomy Family History Family History Sister History of colon cancer Social History Social History Household Members: None Housing: Apartment Smoking Status: Never smoker Advance Directives: No service: No Current occupational status: unemployed Physical Exam Vital Signs: Vital Signs: Last Vital Signs Temp 97.7 F 02/01/21 01:33 Pulse 85 02/01/21 01:33 Resp 16 02/01/21 01:33 BP 147/103 H 02/01/21 01:33 Pulse Ox 99 02/01/21 01:33 Body Mass Index 29.9 VITAL SIGNS: Reviewed. GENERAL: Well developed, well nourished, in no acute distress. HEAD: Normocephalic/atraumatic OROPHARYNX: no oral lesions noted, posterior pharynx clear, all areas of dental removal appear to be healing well without evidence of purulence or edema patient is noted to have very mild stomatitis NECK: Supple, no adenopathy LUNGS: Normal breath sounds. No adventitious sounds or accessory muscle use. SpO2<100> CARDIOVASCULAR: Regular rate and rhythm without noted murmurs ABDOMEN: Soft, non-tender, non-distended with bowel sounds. NEUROLOGIC: Alert and oriented x 4. Course Course Course Narrative: Was a 55-year-old female with history and clinical presentation consistent with NSAID induced acid reflux with sequela burning sensation, bad taste in her mouth, and globus like feeling in the back of her throat. Patient will be given a GI cocktail as well as Tylenol and re- evaluated. On re-evaluation patient has had resolution of her symptoms with the exception of the globus sensation. Of note, patient is not drooling nor does she have trismus. It was explained to her once again that this is a combination of post dentall procedure with the irritation caused by acid reflux. Patient was encouraged to follow up with the primary care provider tomorrow and was discharged in stable condition. Discharge Plan Discharge Clinical Impression: Laryngitis from reflux of stomach acid, Pain, dental Patient Disposition: Home, Self-Care Instructions: Diet for Stomach Ulcers and Gastritis (ED), Gastroesophageal Reflux Disease (ED) Additional Instructions: 1. Resume all home medications as prescribed with the exception of the ibuprofen. 2. Recommend application of ice to unexposed skin for additional symptom relief of your dental pain. 3. Recommend [id number] Anbesol be applied as directed on the outside packaging for additional pain relief. 4. Tylenol 1000 mg, orally, every 6 hours as needed for pain control. Do not exceed 4000 mg within 24 hours. 5. Follow-up with your primary care provider tomorrow morning. Do not hesitate to return to the emergency department should you experience any acute worsening of your symptoms. Prescriptions: No Action clindamycin HCl 300 mg capsule 300 mg PO Q8H Qty: 21 RF: 0 hydrochlorothiazide 25 mg tablet 1 tab PO DAILY RF: 0 hyoscyamine 0.15 mg Tablet 0.125 mg PO Q2-4H PRN (Reason: Stomach Upset) RF: 0 paroxetine HCl [Paxil] 20 mg tablet 20 mg PO DAILY RF: 0 Calmoseptine 0.44-20.6 % ointment 1 appl topical QID PRN (Reason: perianal burning) Qty: 71 RF: 0 Referrals: Name,MD Armando [Primary Care Provider] - 2 days (Re-evaluation outpatient management for laryngitis secondary to acid reflux from NSAID use after dental procedure)
[2021-02-01] MEDS: Lidocaine HCl Viscous 2 % 15 ML SOLUTION 10 ML MUCOUS MEM (01:23)
[2021-02-01] MEDS: Magnesium Hydrox/Alum Hydrox 30 ML ORAL.SUSP PO (01:24)
[2021-02-01] MEDS: Acetaminophen 325 MG TABLET 975 MG PO (01:25)
--- NOTE | 2021-02-01 01:28 | PC.NURSE ---
Patient medicated per MD order - able to swallow medications at this time. Patient reports feeling weird - feeling started yesterday.
[2021-02-01 01:33] VITALS: BP 147/103; PULSE 85; RESP 16; TEMP 36.5; O2SAT 99
== END 2021-02-01 02:31 | disposition home or self-care (01) ==
PROVIDERS: Emergency Provider Student in an Organized Health Care Education/Training Program; PCP Internal Medicine Geriatric Medicine
DX: J04.0 Acute laryngitis (principal); K21.9 Gastro-esophageal reflux disease without esophagitis; K08.89 Other specified disorders of teeth and supporting structures; Z98.818 Other dental procedure status; I10 Essential (primary) hypertension; J45.909 Unspecified asthma, uncomplicated; D64.9 Anemia, unspecified
CPT/HCPCS: 99283; 99284

== ENCOUNTER → 2021-03-01 11:07 | Outpatient (BNVA) | payer MEDICAID, SELFPAY | PROVIDERS: PCP Internal Medicine Geriatric Medicine; Visit Provider Obstetrics & Gynecology ==

== ENCOUNTER 2021-09-02 09:13 | Emergency (ER) | payer MEDICAID, SELFPAY ==
--- NOTE | ~2021-09-02 | XR_ITS ---
EXAMINATION: XR CHEST CLINICAL INFORMATION: Fevers chills headaches and chest pain COMPARISON: October 28, 2016 and studies dating back to August 09, 2010 TECHNIQUE: 2 views of the chest were obtained. FINDINGS: The right heart border is partially obscured which likely related to vasculature and pericardial fat pad. Heart normal size. No evidence of pulmonary edema. No pneumothorax or pleural effusion. XR/XR chest 2V IMPRESSION: No definite acute parenchymal disease identified.
--- NOTE | ~2021-09-02 | CT_ITS ---
EXAMINATION: CT HEAD WITHOUT CONTRAST CLINICAL INFORMATION: Headache with hypertension for 2 days. COMPARISON: None TECHNIQUE: Contiguous axial imaging was performed from the skull base to vertex without intravenous administration of contrast. Additional 2-D coronal and sagittal reformatted images are generated on the CT workstation and uploaded to PACS. This CT examination was performed using dose optimization techniques as appropriate, variously including the following: *Automated exposure control *Adjustment of mA and/or kV according to patient size (this includes techniques or standardized protocols for targeted exams where dose is matched to indication/reason for exam; i.e. extremities or head) *Use of iterative reconstruction technique DLP: 671 mGy-cm FINDINGS: There is no intracranial hemorrhage, hematoma, or extra-axial fluid collection. The ventricles are normal in size. There is no hydrocephalus, edema, or mass effect. The kwok-white matter differentiation appears symmetric. There is no visible acute territorial infarct or mass lesion. The calvarium appears intact. There is no pneumocephalus or orbital emphysema. The visualized sinuses and middle ears and mastoid air cells show no significant mucosal thickening. There are no air-fluid levels. CT/CT head/brain wo con IMPRESSION: Unremarkable noncontrast CT head.
[2021-09-02 09:16] VITALS: BP 157/99; PULSE 97; RESP 16; TEMP 36.9; O2SAT 99; BMI 31.3
[2021-09-02 09:58] LABS: IDNOW Serial# 08D9AD1C; Strep A Nucleic Acid Negative (Negative)
[2021-09-02 10:09] LABS: COVID-19 Test Negative (Negative); IDNOW Serial# 9DD0AD1C
--- NOTE | 2021-09-02 10:16 | ED_ITS ---
HPI - URI/Sore Throat General Chief Complaint: General Medical Stated Complaint: multiple complaints Time Seen by Provider: 09/02/21 09:22 Related Data Home Medications Medication Instructions Recorded Confirmed hydrochlorothiazide 25 mg tablet 1 tab PO DAILY 12/18/20 01/12/21 hyoscyamine 0.15 mg tablet 0.125 mg PO Q2-4H PRN 12/18/20 01/12/21 paroxetine HCl 20 mg tablet (Paxil) 20 mg PO DAILY 01/12/21 Previous Rx's Medication Instructions Recorded menthol 0.44 %-zinc oxide 20.6 % 1 appl TOPICAL QID PRN #71 g 01/12/21 topical ointment (Calmoseptine) clindamycin HCl 300 mg capsule 300 mg PO Q8H #21 cap 01/21/21 terconazole 0.8 % vaginal cream 1 appful VAGINAL BEDTIME 3 Days 03/01/21 #20 g Allergies Allergy/AdvReac Type Severity Reaction Status Date / Time penicillin V Allergy Intermediate rash Verified 03/01/21 11:09 Penicillins Allergy Intermediate SWELLING, Verified 03/01/21 11:09 [facility] Past Medical History Medical History Abdominal pain Anemia Asthma Bowel obstruction Fibromyalgia HTN (hypertension) Hypertension Internal and external hemorrhoids without complication Recurrent incisional hernia Surgical History Hx of appendectomy Hx of cholecystectomy Family History Family History Sister History of colon cancer Social History Social History Household Members: None Housing: Apartment Do you presently have visiting nurse or other home services: No Advance Directives: No Advance Directives Information Provided: No Patient : No service: No Current occupational status: unemployed Physical Exam Vital Signs: Vital Signs: Last Vital Signs Temp 98.5 F 09/02/21 09:16 Pulse 97 09/02/21 09:16 Resp 16 09/02/21 09:16 BP 157/99 H 09/02/21 09:16 Pulse Ox 99 09/02/21 09:16 Body Mass Index 31.3 MDM - URI/Sore Throat Lab Data Labs: Lab Results 09/02/21 09/02/21 Range/Units 09:35 09:35 COVID-19 (TONIE) Negative (Negative) COVID-19 Clin Com See Note S. pyogenes GrpA LORNA Negative (Negative) Discharge Plan Discharge Prescriptions: No Action clindamycin HCl 300 mg capsule 300 mg PO Q8H Qty: 21 RF: 0 hydrochlorothiazide 25 mg tablet 1 tab PO DAILY RF: 0 hyoscyamine 0.15 mg Tablet 0.125 mg PO Q2-4H PRN (Reason: Stomach Upset) RF: 0 paroxetine HCl [Paxil] 20 mg tablet 20 mg PO DAILY RF: 0 Calmoseptine 0.44-20.6 % ointment 1 appl topical QID PRN (Reason: perianal burning) Qty: 71 RF: 0 terconazole 0.8 % cream 1 appful vaginal BEDTIME 3 Days Qty: 20 RF: 0
--- NOTE | 2021-09-02 10:19 | ECG_ITS ---
Test Reason : chest burning Blood Pressure : / mmHG Vent. Rate : 092 BPM Atrial Rate : 092 BPM P-R Int : 140 ms QRS Dur : 076 ms QT Int : 344 ms P-R-T Axes : 051 002 -03 degrees QTc Int : 425 ms Normal sinus rhythm Nonspecific ST and T wave abnormality Abnormal ECG When compared with ECG of 29-OCT-2016 14:09, ST less depressed in Lateral leads Referred By: Angie Johnson Electronically Signed By:ZACH KRAFT MD
--- NOTE | 2021-09-02 10:21 | ED_ITS ---
HPI - General Adult General Chief complaint: General Medical Stated complaint: multiple complaints Time Seen by Provider: 09/02/21 09:22 Source: patient Mode of arrival: ambulatory Limitations: no limitations History of Present Illness HPI narrative: 55-year-old female with a past medical history of hypertension, asthma, anemia and fibromyalgia presenting to the ED with multiple complaints which include subjective fevers, intermittent headaches, body aches, generalized fatigue/malaise, facial pain/pressure sensation, intermittent palpitations and constant chest pain burning sensation she describes it as for the past 2-3 days. Reports that she went to her primary care provider approximately 2-3 days ago although she has not received her blood work and is requesting for her blood work to be obtained. Denies any measured fevers, dizziness, changes in vision, nausea/vomiting, neck pain/stiffness, dyspnea on exertion, orthopnea, lower extremity edema or calf tenderness, abdominal pain, back pain, calf tenderness, recent travel or sick contacts or any other symptoms complaints or concerns at this time. MD complaint: Multiple complaints Onset (ago): day(s) (2-3) Location: head, face and chest Radiation: non-radiation Severity: moderate Quality: burning Pain Consistency: constant Relieving factors: none Exacerbating factors: none Associated symptoms: chest pain, diaphoresis, fever/chills, headaches and malaise Treatments prior to arrival: none Related Data Home Medications Medication Instructions Recorded Confirmed hydrochlorothiazide 25 mg tablet 1 tab PO DAILY 12/18/20 01/12/21 hyoscyamine 0.15 mg tablet 0.125 mg PO Q2-4H PRN 12/18/20 01/12/21 paroxetine HCl 20 mg tablet (Paxil) 20 mg PO DAILY 01/12/21 Previous Rx's Medication Instructions Recorded menthol 0.44 %-zinc oxide 20.6 % 1 appl TOPICAL QID PRN #71 g 01/12/21 topical ointment (Calmoseptine) clindamycin HCl 300 mg capsule 300 mg PO Q8H #21 cap 01/21/21 terconazole 0.8 % vaginal cream 1 appful VAGINAL BEDTIME 3 Days 03/01/21 #20 g azithromycin 250 mg tablet See Rx Instructions .ROUTE 09/02/21 .COMPLEX #6 tab hydroxyzine HCl 50 mg tablet 50 mg PO BID PRN #14 tab 09/02/21 Allergies Allergy/AdvReac Type Severity Reaction Status Date / Time penicillin V Allergy Intermediate rash Verified 03/01/21 11:09 Penicillins Allergy Intermediate SWELLING, Verified 03/01/21 11:09 TSERING Review of Systems Review of Systems: Constitutional : + subjective fever/chills/fatigue/malaise No Weight loss, No Night Sweats ENT/Mouth : No Hearing loss, No Ear Pain, No Nasal Congestion, + Sinus Pain, No Hoarseness, No sore throat, No Rhinorrhea, No Swallowing Difficulty Eyes: No Eye Pain, No Swelling, No Redness, No Foreign Body, No Discharge, No Vision Changes Cardiovascular : + Chest Pain, No SOB, No Dyspnea on Exertion, No Orthopnea, No Edema, + Palpitations Respiratory : No Cough, No Sputum, No Wheezing, No Smoke Exposure, No Dyspnea Gastrointestinal : No Nausea, No Vomiting, No Diarrhea, No Constipation, No abdominal Pain, No Hematochezia, No Melena Genitourinary : no irregular bleeding, No Dysuria, No Urinary Frequency, No Hematuria, No Urinary Incontinence, No Urgency, No Flank Pain, No Urinary Flow Changes, No Hesitancy Musculoskeletal : No joint pain, No Myalgias, No Joint Swelling Skin : No Skin Lesions, No rash Neuro : No Weakness, No Numbness, No Paresthesias, No Loss of Consciousness, No Dizziness, + Headache Psych : No Anxiety/Panic, No Depression, No SI/HI/AH/VH, No Social Issues, Heme/Lymph: No Bruising, No Bleeding,No Lymphadenopathy Endocrine : No Polyuria, No Polydipsia, No Temperature Intolerance Yes all other systems are reviewed and are negative [facility] Past Medical History Attestation statement: The following information was validated with the patient. Medical History Abdominal pain Anemia Asthma Bowel obstruction Fibromyalgia HTN (hypertension) Hypertension Internal and external hemorrhoids without complication Recurrent incisional hernia Surgical History Hx of appendectomy Hx of cholecystectomy Family History Family History Sister History of colon cancer Social History Social History Household Members: None Housing: Apartment Do you presently have visiting nurse or other home services: No Advance Directives: No Advance Directives Information Provided: No Patient : No service: No Current occupational status: unemployed Physical Exam Vital Signs: Vital Signs: Last Vital Signs Temp 98.5 F 09/02/21 09:16 Pulse 97 09/02/21 09:16 Resp 16 09/02/21 09:16 BP 157/99 H 09/02/21 09:16 Pulse Ox 99 09/02/21 09:16 Body Mass Index 31.3 vital signs have been reviewed as normal and appeared to be correct. Blood pr essure hypertensive 157/99 Heart rate normal. Respiration rate normal. Temperature normal. Oxygen saturation normal. Appearance: Alert. Oriented X3. No acute distress. Head: Normal external exam. Normocephalic. Atraumatic. Eyes: PERRLA. EOMI. Conjunctiva and sclera normal. Eyelids normal. ENT: EAC normal. TM's Normal. Pharynx normal. Uvula midline. Moist mucous m embranes. No trismus noted. No drooling noted. No muffled voice noted. Neck: Normal inspection. Neck supple. FROM. No adenopathy. Thyroid Normal. No meningeal signs. No neck mass noted. CVS: Normal heart rate and rhythm. Heart sound normal. Pulses normal throughout. No murmurs/rales/gallops. Respiratory: No respiratory distress. Painless inspiration. Breath sounds normal. No wheezes/rales/rhonchi noted. Chest nontender. No accessory muscle usage noted or decreased air movement noted. Abdomen: Soft and nontender. Bowel sounds normal in all 4 quadrants. No distention noted. No organomegaly noted. No visible injury noted. Back: No CVA tenderness. Full range of motion noted. No rashe s/lesion/induration/fluctuance or signs of infection noted. Skin: Skin warm and dry. Normal skin color. Normal skin turgor. No rashes/lesions/lacerations noted. Extremities: No lower extremity edema. No calf tenderness noted. Extremities exhibit normal range of motion and nontender. Neuro: Oriented X 3. No motor deficit. No sensory deficit. Reflexes normal. Normal steady gait. No focal neuro deficits noted. Vascular: + radial pulses/+ 2 distal pedal pulses/+2 dorsalis pedis b/l. Normal cap refill. No cyanosis noted to upper extremity nails and lower extremity toes nails. Course Course Course Narrative: 10:20am - 55-year-old female with a past medical history of hypertension, asthma, anemia and fibromyalgia presenting to the ED with multiple complaints which include subjective fevers, intermittent headaches, body aches, generalized fatigue/malaise, facial pain/pressure sensation, intermittent palpitations and constant chest pain burning sensation she describes it as for the past 2-3 days. Reports that she went to her primary care provider approximately 2-3 days ago although she has not received her blood work and is requesting for her blood work to be obtained. Plan: We will obtain records/labs from her PCP appointment 2-3 days ago, obtain labs, chest x-ray, EKG, COVID, rapid strep and re-evaluate. Reevaluation(s) Reevaluation #1: - Labs reviewed WBC at 3000. Glucose 154. AST/ALT AT 32/42. Otherwise all other labs WNL. - CT scan of brain is within normal limits no acute processes are noted. Chest x-ray within normal limits no acute processes are noted. EKG is normal sinus rhythm with a ventricular rate of [address] and T-wave abnormalities no acute ischemic changes are noted similar compared to prior EKG 10/29/2016. - therefore at this time will send home with antibiotics for possible sinus infection instructions to follow-up with her primary care provider and to return if any new or worsening symptoms. Patient understands agrees with this plan. Time: 11:37 Medical Decision Making Medical Records Medical records reviewed: Yes I reviewed the patient's medical records. Lab Data Lab results reviewed: Yes I reviewed the patient's lab results. Result diagrams: 09/02/21 10:46 09/02/21 10:46 Labs: Lab Results 09/02/21 09/02/21 09/02/21 Range/Units 09:35 09:35 10:46 WBC 3.7 L (4.8-10.8) X10*3/uL RBC 5.18 (4.20-5.50) X10*6/uL Hgb 14.3 (12.0-16.0) g/dl Hct 42.2 (37.0-47.0) % MCV 81.5 (80.0-98.0) fL MCH 27.6 (27.0-33.0) pg MCHC 33.9 (31.0-35.0) g/dl RDW 13.8 (11.0-16.0) % Plt Count 359 (160-400) X10*3/uL MPV 9.2 L (9.4-12.3) fL Immature Gran % (Auto) 0.3 (0.0-0.4) % Neut % (Auto) 50.7 (45-73) % Lymph % (Auto) 37.8 (20-40) % [place] % (Auto) 7.2 (2-11) % Eos % (Auto) 2.7 (0-4) % Baso % (Auto) 1.3 (0-2) % Lymph # (Auto) 1.4 (1.2-4.9) X10*3/uL [place] # (Auto) 0.3 (0.1-1.2) X10*3/uL Eos # (Auto) 0.1 (0.0-0.4) X10*3/uL Baso # (Auto) 0.1 (0.0-0.2) X10*3/uL Abs Immat Gran (auto) 0.01 (0.00-0.03) X10*3/uL Absolute Neuts (auto) 1.9 L (2.0-8.3) x10*3/uL Absolute Nucleated RBC 0.000 (0.0-0.012) X10*3/uL Nucleated RBC % (auto) 0.0 (0.0-0.2) /100WBC PT (9.9-13.0) SEC INR (0.9-1.1) Sodium (135-145) mmol/L Potassium (3.3-5.1) mmol/L Chloride (96-108) mmol/L Carbon Dioxide (22-29) mmol/L Anion Gap (12-20) BUN (9-16) mg/dL Creatinine (0.5-1.4) mg/dL Estim Creat Clear Calc Estimated GFR Random Glucose (60-115) mg/dL Calcium (8.4-10.2) mg/dL Magnesium (1.6-2.6) mg/dL Total Bilirubin (0.0-1.0) mg/dL AST (5-31) U/L ALT (0-31) U/L Alkaline Phosphatase (39-117) U/L Troponin I High Sens (<3.5-17.0) ng/L Total Protein (6.5-8.0) g/dL Albumin (3.5-5.0) g/dL COVID-19 (TONIE) Negative (Negative) COVID-19 Clin Com See Note S. pyogenes GrpA LORNA Negative (Negative) 09/02/21 09/02/21 09/02/21 Range/Units 10:46 10:46 10:46 WBC (4.8-10.8) X10*3/uL RBC (4.20-5.50) X10*6/uL Hgb (12.0-16.0) g/dl Hct (37.0-47.0) % MCV (80.0-98.0) fL MCH (27.0-33.0) pg MCHC (31.0-35.0) g/dl RDW (11.0-16.0) % Plt Count (160-400) X10*3/uL MPV (9.4-12.3) fL Immature Gran % (Auto) (0.0-0.4) % Neut % (Auto) (45-73) % Lymph % (Auto) (20-40) % [place] % (Auto) (2-11) % Eos % (Auto) (0-4) % Baso % (Auto) (0-2) % Lymph # (Auto) (1.2-4.9) X10*3/uL [place] # (Auto) (0.1-1.2) X10*3/uL Eos # (Auto) (0.0-0.4) X10*3/uL Baso # (Auto) (0.0-0.2) X10*3/uL Abs Immat Gran (auto) (0.00-0.03) X10*3/uL Absolute Neuts (auto) (2.0-8.3) x10*3/uL Absolute Nucleated RBC (0.0-0.012) X10*3/uL Nucleated RBC % (auto) (0.0-0.2) /100WBC PT 13.2 H (9.9-13.0) SEC INR 1.2 H (0.9-1.1) Sodium 139 (135-145) mmol/L Potassium 3.7 (3.3-5.1) mmol/L Chloride 103 (96-108) mmol/L Carbon Dioxide 25 (22-29) mmol/L Anion Gap 15 (12-20) BUN 14 (9-16) mg/dL Creatinine 0.87 (0.5-1.4) mg/dL Estim Creat Clear Calc 60.4 Estimated GFR > 60 Random Glucose 154 H (60-115) mg/dL Calcium 10.2 D (8.4-10.2) mg/dL Magnesium 1.8 (1.6-2.6) mg/dL Total Bilirubin 0.8 (0.0-1.0) mg/dL AST 32 H D (5-31) U/L ALT 42 H (0-31) U/L Alkaline Phosphatase 116 D (39-117) U/L Troponin I High Sens < 3.5 (<3.5-17.0) ng/L Total Protein 8.5 H (6.5-8.0) g/dL Albumin 5.2 H (3.5-5.0) g/dL COVID-19 (TONIE) (Negative) COVID-19 Clin Com S. pyogenes GrpA LORNA (Negative) Imaging Data Chest x-ray: Attestation: I personally reviewed and interpreted this imaging study as follows: Radiologist's impression: FINDINGS: The right heart border is partially obscured which likely related to vasculature and pericardial fat pad. Heart normal size. No evidence of pulmonary edema. No pneumothorax or pleural effusion. XR/XR chest 2V IMPRESSION: No definite acute parenchymal disease identified. CT scan of brain without contrast: Attestation: I personally reviewed and interpreted this imaging study as follows: Radiologist's impression: FINDINGS: There is no intracranial hemorrhage, hematoma, or extra-axial fluid collection.? The ventricles are normal in size. There is no hydrocephalus, edema, or mass effect.? The kwok-white matter differentiation appears symmetric.? There is no visible acute territorial infarct or mass lesion. The calvarium appears intact. There is no pneumocephalus or orbital emphysema.? The visualized sinuses and middle ears and mastoid air cells show no significant mucosal thickening. There are no air-fluid levels. CT/CT head/brain wo con IMPRESSION: Unremarkable noncontrast CT head. ECG Data Attestation: I personally reviewed and interpreted this ECG as follows: Interpretation: EKG is normal sinus rhythm with a ventricular rate of [address] and T-wave abnormalities no acute ischemic changes are noted similar compared to prior EKG 10/29/2016. Discharge Plan Discharge Clinical Impression: Palpitations, Anxiety, Atypical chest pain, Sinusitis Patient Disposition: Home, Self-Care Instructions: Sinusitis (ED), Noncardiac Chest Pain (ED), Anxiety (ED) Prescriptions: New hydroxyzine HCl 50 mg tablet 50 mg PO BID PRN (Reason: anxiety) Qty: 14 RF: 0 azithromycin 250 mg tablet See Rx Instructions .ROUTE .COMPLEX Qty: 6 RF: 0 No Action clindamycin HCl 300 mg capsule 300 mg PO Q8H Qty: 21 RF: 0 hydrochlorothiazide 25 mg tablet 1 tab PO DAILY RF: 0 hyoscyamine 0.15 mg Tablet 0.125 mg PO Q2-4H PRN (Reason: Stomach Upset) RF: 0 paroxetine HCl [Paxil] 20 mg tablet 20 mg PO DAILY RF: 0 Calmoseptine 0.44-20.6 % ointment 1 appl topical QID PRN (Reason: perianal burning) Qty: 71 RF: 0 terconazole 0.8 % cream 1 appful vaginal BEDTIME 3 Days Qty: 20 RF: 0 Referrals: Name,MD Armando [Primary Care Provider] - 2 days Print Language: Portuguese
[2021-09-02 10:50] LABS: MANUAL DIFF FLAG NO
[2021-09-02 10:54] LABS: Basophils Absolute Auto 0.1 X10*3/uL (0.0-0.2); Basophils Percent Auto 1.3 % (0-2); Eosinophils Absolute Auto 0.1 X10*3/uL (0.0-0.4); Eosinophils Percent Auto 2.7 % (0-4); Hematocrit 42.2 % (37.0-47.0); Hemoglobin 14.3 g/dl (12.0-16.0); Imm Gran Abs Auto 0.01 X10*3/uL (0.00-0.03); Imm Gran Pct Auto 0.3 % (0.0-0.4); Lymphocytes Absolute Auto 1.4 X10*3/uL (1.2-4.9); Lymphocytes Percent Auto 37.8 % (20-40); Mean Corpuscular HGB Conc 33.9 g/dl (31.0-35.0); Mean Corpuscular Hemoglobin 27.6 pg (27.0-33.0); Mean Corpuscular Volume 81.5 fL (80.0-98.0); Mean Platelet Volume 9.2 fL (9.4-12.3); Monocytes Absolute Auto 0.3 X10*3/uL (0.1-1.2); Monocytes Percent Auto 7.2 % (2-11); Neutrophils Absolute Auto 1.9 x10*3/uL (2.0-8.3); Neutrophils Percent Auto 50.7 % (45-73); Platelet Count 359 X10*3/uL (160-400); Red Blood Count 5.18 X10*6/uL (4.20-5.50); Red Cell Distribution Width 13.8 % (11.0-16.0); White Blood Count 3.7 X10*3/uL (4.8-10.8)
[2021-09-02 10:59] LABS: INTERNATIONAL NORM RATIO 1.2 (0.9-1.1); Prothrombin Time 13.2 SEC (9.9-13.0)
[2021-09-02 11:11] LABS: Alanine Aminotransferase 42 U/L (0-31); Albumin Level 5.2 g/dL (3.5-5.0); Alkaline Phosphatase 116 U/L (39-117); Anion Gap 15 (12-20); Aspartate Amino Transferase 32 U/L (5-31); Bilirubin Total 0.8 mg/dL (0.0-1.0); Blood Urea Nitrogen 14 mg/dL (9-16); Calcium 10.2 mg/dL (8.4-10.2); Carbon Dioxide 25 mmol/L (22-29); Chloride 103 mmol/L (96-108); Creatinine Clr Calc Pharmacy 60.4; Estimated Glomerular Filt Rate > 60; Glucose Random 154 mg/dL (60-115); Magnesium 1.8 mg/dL (1.6-2.6); Potassium 3.7 mmol/L (3.3-5.1); Sodium 139 mmol/L (135-145); Total Protein 8.5 g/dL (6.5-8.0)
[2021-09-02 11:17] LABS: Troponin-I High Sensitivity < 3.5 ng/L (<3.5-17.0)
== END 2021-09-02 11:54 | disposition home or self-care (01) ==
PROVIDERS: Physician Assistant Medical; Emergency Provider Emergency Medicine; PCP Internal Medicine Geriatric Medicine
DX: R07.89 Other chest pain (principal); R00.2 Palpitations; F41.9 Anxiety disorder, unspecified; J32.9 Chronic sinusitis, unspecified; I10 Essential (primary) hypertension; J45.909 Unspecified asthma, uncomplicated; D64.9 Anemia, unspecified; Z20.822 Contact with and (suspected) exposure to COVID-19
CPT/HCPCS: 36415; 70450; 71046; 80053; 83735; 84484; 85025; 85610; 87635; 87651; 93005; 99283; 99284

== ENCOUNTER 2021-09-03 01:32 | Emergency (ER) | payer MEDICAID, SELFPAY ==
--- NOTE | ~2021-09-03 | CT_ITS ---
EXAMINATION: CT ABDOMEN AND PELVIS WITH CONTRAST CLINICAL INFORMATION: Abdominal pain. Question small bowel obstruction. COMPARISON: 12/18/2020 TECHNIQUE: Multidetector volumetric images were obtained from the superior aspect of the liver through the pubic symphysis following administration 85 mL of Omnipaque 350 intravenous contrast. Sagittal and coronal reformatted images were obtained on the technologist's workstation. Oral contrast: No This CT examination was performed using dose optimization techniques as appropriate, variously including the following: *Automated exposure control *Adjustment of mA and/or kV according to patient size (this includes techniques or standardized protocols for targeted exams where dose is matched to indication/reason for exam; i.e. extremities or head) *Use of iterative reconstruction technique DLP: 573 mGy-cm FINDINGS: LUNG BASES: The visualized lung bases are unremarkable. LIVER, GALLBLADDER, AND BILIARY TREE: The liver is normal in size, shape, and attenuation. Cyst at the periphery of the right lobe of the liver. No solid hepatic lesion or biliary ductal dilatation is present. The gallbladder is unremarkable with no evidence of radiopaque gallstones, gallbladder wall thickening, or obvious pericholecystic inflammatory changes. PANCREAS: Unremarkable. SPLEEN: Unremarkable. ADRENAL GLANDS: Unremarkable. KIDNEYS AND URETERS: The kidneys are normal in size, shape, and attenuation. No hydronephrosis, hydroureter, or calculi seen. No perinephric stranding. BLADDER: Unremarkable. GASTROINTESTINAL TRACT: The stomach is unremarkable. Proximal small bowel is unremarkable. There is an anastomosis of the small bowel in the left pelvis. In this area there is distention of the bowel with fecalization. There are adjacent inflammatory changes ABDOMINAL WALL: Mild rectus diastases. LYMPH NODES: Normal. VASCULAR: Unremarkable. PELVIC VISCERA: Anteverted uterus. No adnexal mass. OSSEOUS STRUCTURES: No acute or suspicious osseous abnormality. Mild degenerative changes of the spine. CT/CT abdomen pelvis w con IMPRESSION: No bowel obstruction. Area of wall thickening with adjacent inflammation involving the small bowel in the left abdomen near the anastomosis.
[2021-09-03 01:58] VITALS: BP 175/97; PULSE 81; RESP 20; TEMP 36.2; O2SAT 99; BMI 31.3
[2021-09-03 02:04] LABS: MANUAL DIFF FLAG NO
[2021-09-03 02:08] LABS: Basophils Percent Auto 0.8 % (0-2); Eosinophils Absolute Auto 0.1 X10*3/uL (0.0-0.4); Eosinophils Percent Auto 1.8 % (0-4); Hematocrit 37.7 % (37.0-47.0); Hemoglobin 12.8 g/dl (12.0-16.0); Imm Gran Abs Auto 0.01 X10*3/uL (0.00-0.03); Imm Gran Pct Auto 0.3 % (0.0-0.4); Lymphocytes Absolute Auto 1.3 X10*3/uL (1.2-4.9); Lymphocytes Percent Auto 34.6 % (20-40); Mean Corpuscular Hemoglobin 27.6 pg (27.0-33.0); Mean Corpuscular Volume 81.3 fL (80.0-98.0); Mean Platelet Volume 9.1 fL (9.4-12.3); Monocytes Absolute Auto 0.3 X10*3/uL (0.1-1.2); Monocytes Percent Auto 8.1 % (2-11); Neutrophils Absolute Auto 2.1 x10*3/uL (2.0-8.3); Neutrophils Percent Auto 54.4 % (45-73); Platelet Count 298 X10*3/uL (160-400); Red Blood Count 4.64 X10*6/uL (4.20-5.50); Red Cell Distribution Width 13.8 % (11.0-16.0); White Blood Count 3.8 X10*3/uL (4.8-10.8)
[2021-09-03 02:26] LABS: Alanine Aminotransferase 33 U/L (0-31); Albumin Level 4.5 g/dL (3.5-5.0); Alkaline Phosphatase 101 U/L (39-117); Anion Gap 14 (12-20); Aspartate Amino Transferase 24 U/L (5-31); Bilirubin Total 0.6 mg/dL (0.0-1.0); Blood Urea Nitrogen 17 mg/dL (9-16); Calcium 9.3 mg/dL (8.4-10.2); Carbon Dioxide 24 mmol/L (22-29); Chloride 105 mmol/L (96-108); Creatinine Clr Calc Pharmacy 65.6; Estimated Glomerular Filt Rate > 60; Glucose Random 129 mg/dL (60-115); Lipase 53 U/L (8-78); Potassium 3.9 mmol/L (3.3-5.1); Sodium 139 mmol/L (135-145); Total Protein 7.4 g/dL (6.5-8.0)
--- NOTE | 2021-09-03 02:31 | ED.ABDPAIN ---
HPI - Abdominal Pain General Chief Complaint: Abdominal Pain Stated Complaint: Abd pain Time Seen by Provider: 09/03/21 01:40 Source: patient Mode of arrival: ambulatory History of Present Illness HPI narrative: 55-year-old female presents with acute onset of progressively worsening abdominal discomfort in the setting of a positive intra-abdominal surgical history but denies any associated fever, chills, nausea, vomiting, and states that she has continued to pass flatus. Otherwise, she denies a shortness of breath or chest pain. Related Data Home Medications Medication Instructions Recorded Confirmed hydrochlorothiazide 25 mg tablet 1 tab PO DAILY 12/18/20 01/12/21 hyoscyamine 0.15 mg tablet 0.125 mg PO Q2-4H PRN 12/18/20 01/12/21 paroxetine HCl 20 mg tablet (Paxil) 20 mg PO DAILY 01/12/21 Previous Rx's Medication Instructions Recorded menthol 0.44 %-zinc oxide 20.6 % 1 appl TOPICAL QID PRN #71 g 01/12/21 topical ointment (Calmoseptine) clindamycin HCl 300 mg capsule 300 mg PO Q8H #21 cap 01/21/21 terconazole 0.8 % vaginal cream 1 appful VAGINAL BEDTIME 3 Days 03/01/21 #20 g azithromycin 250 mg tablet See Rx Instructions .ROUTE 09/02/21 .COMPLEX #6 tab hydroxyzine HCl 50 mg tablet 50 mg PO BID PRN #14 tab 09/02/21 Allergies Allergy/AdvReac Type Severity Reaction Status Date / Time penicillin V Allergy Intermediate rash Verified 03/01/21 11:09 Penicillins Allergy Intermediate SWELLING, Verified 03/01/21 11:09 WELTS Review of Systems Review of Systems Pertinent positives and negatives as stated in HPI 10 point review of systems is otherwise negative. Physical Exam Vital Signs: Vital Signs: Last Vital Signs Temp 97.2 F 09/03/21 01:58 Pulse 79 09/03/21 02:55 Resp 22 H 09/03/21 02:55 BP 158/97 H 09/03/21 02:55 Pulse Ox 100 09/03/21 02:55 Body Mass Index 31.3 Course Course Course Narrative: 55-year-old female with history and clinical presentation suggestive of possible diverticulitis, hernia. Review of all investigations without acute findings other than apparent small-bowel anastomosis located in the left pelvis with surrounding inflammatory changes and associated distention. This is mildly suggestive of a clinically relevant stricture leading to distention of the bowel without obstruction. Patient was in significant discomfort that has since resolved on re-evaluation after receiving IV Toradol. I discussed the case with Surgical Services who agrees that patient can pursue follow-up on Sunday. Patient was otherwise discharged home in stable condition. MDM - Abdominal Pain Lab Data Result diagrams: 09/03/21 02:01 09/03/21 02:01 Labs: Lab Results 09/03/21 09/03/21 09/03/21 Range/Units 02:01 02:01 02:58 WBC 3.8 L (4.8-10.8) X10*3/uL RBC 4.64 (4.20-5.50) X10*6/uL Hgb 12.8 (12.0-16.0) g/dl Hct 37.7 (37.0-47.0) % MCV 81.3 (80.0-98.0) fL MCH 27.6 (27.0-33.0) pg MCHC 34.0 (31.0-35.0) g/dl RDW 13.8 (11.0-16.0) % Plt Count 298 (160-400) X10*3/uL MPV 9.1 L (9.4-12.3) fL Immature Gran % (Auto) 0.3 (0.0-0.4) % Neut % (Auto) 54.4 (45-73) % Lymph % (Auto) 34.6 (20-40) % [place] % (Auto) 8.1 (2-11) % Eos % (Auto) 1.8 (0-4) % Baso % (Auto) 0.8 (0-2) % Lymph # (Auto) 1.3 (1.2-4.9) X10*3/uL [place] # (Auto) 0.3 (0.1-1.2) X10*3/uL Eos # (Auto) 0.1 (0.0-0.4) X10*3/uL Baso # (Auto) 0.0 (0.0-0.2) X10*3/uL Abs Immat Gran (auto) 0.01 (0.00-0.03) X10*3/uL Absolute Neuts (auto) 2.1 (2.0-8.3) x10*3/uL Absolute Nucleated RBC 0.000 (0.0-0.012) X10*3/uL Nucleated RBC % (auto) 0.0 (0.0-0.2) /100WBC Sodium 139 (135-145) mmol/L Potassium 3.9 (3.3-5.1) mmol/L Chloride 105 (96-108) mmol/L Carbon Dioxide 24 (22-29) mmol/L Anion Gap 14 (12-20) BUN 17 H (9-16) mg/dL Creatinine 0.80 (0.5-1.4) mg/dL Estim Creat Clear Calc 65.6 Estimated GFR > 60 Random Glucose 129 H (60-115) mg/dL Calcium 9.3 D (8.4-10.2) mg/dL Total Bilirubin 0.6 (0.0-1.0) mg/dL AST 24 (5-31) U/L ALT 33 H (0-31) U/L Alkaline Phosphatase 101 (39-117) U/L Total Protein 7.4 (6.5-8.0) g/dL Albumin 4.5 (3.5-5.0) g/dL Lipase 53 (8-78) U/L Urine Color YELLOW Urine Appearance CLEAR Urine pH 6.0 (5.0-8.0) Ur Specific [place] 1.020 (1.005-1.025) Urine Protein NEG (NEG-TRACE) MG/DL Urine Glucose (UA) NEG (NEG) MG/DL Urine Ketones NEG (NEG) MG/DL Urine Blood NEG (NEG) Urine Nitrite NEG (NEG) Ur Leukocyte Esterase NEG (NEG) Discharge Plan Discharge Clinical Impression: Abdominal pain, Small bowel anastomotic stricture Patient Disposition: Home, Self-Care Instructions: Abdominal Pain (ED) Additional Instructions: 1. Resume all home medications. 2. You have been provided with a referral to Surgical Services for further evaluation of your abdominal discomfort. You should call the office on Sunday morning to arrange for an appointment. Return to the ER for acute worsening of symptoms. Prescriptions: No Action clindamycin HCl 300 mg capsule 300 mg PO Q8H Qty: 21 RF: 0 hydrochlorothiazide 25 mg tablet 1 tab PO DAILY RF: 0 hyoscyamine 0.15 mg Tablet 0.125 mg PO Q2-4H PRN (Reason: Stomach Upset) RF: 0 hydroxyzine HCl 50 mg tablet 50 mg PO BID PRN (Reason: anxiety) Qty: 14 RF: 0 azithromycin 250 mg tablet See Rx Instructions .ROUTE .COMPLEX Qty: 6 RF: 0 paroxetine HCl [Paxil] 20 mg tablet 20 mg PO DAILY RF: 0 Calmoseptine 0.44-20.6 % ointment 1 appl topical QID PRN (Reason: perianal burning) Qty: 71 RF: 0 terconazole 0.8 % cream 1 appful vaginal BEDTIME 3 Days Qty: 20 RF: 0 Referrals: Damian,MD Armando [Primary Care Provider] - 2 days Deanna Simon MD [Physician] - 2 days PMF Past Medical History Source: nursing notes reviewed Medical History Abdominal pain Anemia Asthma Bowel obstruction Fibromyalgia HTN (hypertension) Hypertension Internal and external hemorrhoids without complication Recurrent incisional hernia Surgical History Hx of appendectomy Hx of cholecystectomy Family History Family History Sister History of colon cancer Social History Social History Household Members: None Housing: Apartment Do you presently have visiting nurse or other home services: No Advance Directives: No service: No Current occupational status: unemployed
[2021-09-03 02:55] VITALS: BP 158/97; PULSE 79; RESP 22; O2SAT 100
[2021-09-03] MEDS: Ketorolac Tromethamine 15 MG/ML VIAL IVPUSH (03:05)
--- NOTE | 2021-09-03 03:08 | PC.NURSE ---
pt a&o , no sob or chest pain. pt report of having abd pain. last bm was this morning. pt reports is was normal. n/v. medicated per dec. labs, urine collected and sent. Iv placed. call chávez within reach. will continue to monitor.
[2021-09-03 03:15] LABS: Appearance Urine CLEAR; Color Urine YELLOW; Glucose Urine UA NEG (NEG); Leukocyte Esterase Urine NEG (NEG); Nitrite Urine NEG (NEG); UACC Culture Trigger NO; Urine Blood NEG (NEG); Urine Ketones NEG (NEG); Urine Protein NEG (NEG-TRACE)
[2021-09-03] MEDS: iohexoL 350 MG/ML 100 ML INFUS..BTL 85 ML IV (04:04)
[2021-09-03 05:22] VITALS: BP 148/97; PULSE 98; RESP 16
== END 2021-09-03 05:39 | disposition home or self-care (01) ==
PROVIDERS: Emergency Provider Student in an Organized Health Care Education/Training Program; PCP Internal Medicine Geriatric Medicine
DX: R10.9 Unspecified abdominal pain (principal); Z79.899 Other long term (current) drug therapy
CPT/HCPCS: 36415; 74177; 80053; 81003; 83690; 85025; 96374; 99284; 99285; J1885; Q9967

== ENCOUNTER 2021-10-03 13:34 | Emergency (ER) | payer MEDICAID, SELFPAY ==
--- NOTE | ~2021-10-03 | CT_ITS ---
EXAMINATION: CT ABDOMEN AND PELVIS WITH CONTRAST CLINICAL INFORMATION: Bilateral lower abdominal pain and diarrhea for 8 days. History of surgery. COMPARISON: Multiple priors. Most recent CT of the abdomen/pelvis dated from 09/03/2021. TECHNIQUE: Multidetector volumetric images were obtained from the superior aspect of the liver through the pubic symphysis following administration 85 mL of Omnipaque 350 intravenous contrast. Sagittal and coronal reformatted images were obtained on the technologist's workstation. Oral contrast: No This CT examination was performed using dose optimization techniques as appropriate, variously including the following: *Automated exposure control *Adjustment of mA and/or kV according to patient size (this includes techniques or standardized protocols for targeted exams where dose is matched to indication/reason for exam; i.e. extremities or head) *Use of iterative reconstruction technique DLP: 518 mGy-cm FINDINGS: LUNG BASES: There is a new 2 mm pulmonary nodule in the right middle lobe of uncertain significance (4:36). There is redemonstration of a stable nodularity in the right lung base (4:143) likely related with bronchial wall thickening and subsegmental atelectases. No focal consolidation or pleural effusion. LIVER, GALLBLADDER, AND BILIARY TREE: The liver is normal in size, shape, and attenuation. A tiny calcified granuloma in the right hepatic lobe (3:14) is again noted. A cyst in the periphery of the right hepatic lobe is unchanged (3:19). No new focal hepatic lesion. The gallbladder is not identified, possibly under distended or surgically removed. There is no biliary ductal dilatation. PANCREAS: Unremarkable. SPLEEN: Unremarkable. ADRENAL GLANDS: Unremarkable. KIDNEYS AND URETERS: The kidneys are normal in size, shape, and attenuation. Excreted intravenous contrast partially opacifying the renal calyxes limits evaluation of stones. No hydronephrosis, hydroureter, or definite calculi seen. No perinephric stranding. BLADDER: Underdistended. No focal abnormalities or perivesical fat stranding. GASTROINTESTINAL TRACT: There is redemonstration of postsurgical changes with anastomosis of the small bowel in the upper abdomen. There is prominent gaseous distention of the small bowel at the level of the anastomosis without evidence of wall thickening or surrounding inflammatory changes. There are multiple mildly prominent, fluid-filled and hyperemic loops of small bowel in the left hemiabdomen measuring up to approximately 3.3 cm in maximum diameter without a clear transition point is not identified. There are no pericolic inflammatory changes. ABDOMINAL WALL: Midline surgical scar with stable fat stranding and minimal amount of fluid. No abdominal hernia. LYMPH NODES: No lymphadenopathy by size criteria. VASCULAR: Scattered atherosclerotic disease. The abdominal aorta is of normal diameter. PELVIC VISCERA: Normal CT appearance of the uterus. No suspicious adnexal lesions. OSSEOUS STRUCTURES: No acute or aggressive osseous abnormalities. CT/CT abdomen pelvis w con IMPRESSION: Hyperemic and mildly distended loops of small bowel in the left abdomen that could be related with gastroenteritis in the appropriate clinical setting. Although potentially, these could also represent an early and partial small bowel obstruction. Clinical correlation and attention on follow-up is recommended. No pneumatosis, free air or drainable collections.
[2021-10-03 15:27] VITALS: BP 146/90; PULSE 80; RESP 18; TEMP 36.8; O2SAT 100; BMI 31.1
[2021-10-03 16:02] LABS: MANUAL DIFF FLAG NO
[2021-10-03 16:06] LABS: Basophils Absolute Auto 0.1 X10*3/uL (0.0-0.2); Basophils Percent Auto 1.4 % (0-2); Eosinophils Absolute Auto 0.1 X10*3/uL (0.0-0.4); Eosinophils Percent Auto 1.7 % (0-4); Hematocrit 40.4 % (37.0-47.0); Hemoglobin 14.2 g/dl (12.0-16.0); Lymphocytes Absolute Auto 1.4 X10*3/uL (1.2-4.9); Lymphocytes Percent Auto 38.1 % (20-40); Mean Corpuscular HGB Conc 35.1 g/dl (31.0-35.0); Mean Corpuscular Hemoglobin 28.7 pg (27.0-33.0); Mean Corpuscular Volume 81.8 fL (80.0-98.0); Mean Platelet Volume 9.6 fL (9.4-12.3); Monocytes Absolute Auto 0.2 X10*3/uL (0.1-1.2); Monocytes Percent Auto 6.7 % (2-11); Neutrophils Absolute Auto 1.9 x10*3/uL (2.0-8.3); Neutrophils Percent Auto 52.1 % (45-73); Platelet Count 339 X10*3/uL (160-400); Red Blood Count 4.94 X10*6/uL (4.20-5.50); Red Cell Distribution Width 13.3 % (11.0-16.0); White Blood Count 3.6 X10*3/uL (4.8-10.8)
[2021-10-03 16:23] LABS: Alanine Aminotransferase 34 U/L (0-31); Albumin Level 5.1 g/dL (3.5-5.0); Alkaline Phosphatase 122 U/L (39-117); Anion Gap 14 (12-20); Aspartate Amino Transferase 31 U/L (5-31); Bilirubin Total 0.7 mg/dL (0.0-1.0); Blood Urea Nitrogen 16 mg/dL (9-16); Calcium 10.3 mg/dL (8.4-10.2); Carbon Dioxide 26 mmol/L (22-29); Chloride 105 mmol/L (96-108); Creatinine Clr Calc Pharmacy 63.8; Estimated Glomerular Filt Rate > 60; Glucose Random 92 mg/dL (60-115); Potassium 3.5 mmol/L (3.3-5.1); Sodium 141 mmol/L (135-145); Total Protein 8.3 g/dL (6.5-8.0)
[2021-10-03 20:53] VITALS: BP 157/90; PULSE 83; RESP 16; TEMP 36.9; O2SAT 98
[2021-10-03 21:04] LABS: Appearance Urine HAZY; Color Urine DK YELLOW; Glucose Urine UA NEG (NEG); Leukocyte Esterase Urine NEG (NEG); Nitrite Urine NEG (NEG); Specific Gravity - Urine >= 1.030 (1.005-1.025); Urine Blood NEG (NEG); Urine Ketones 15 MG/DL (NEG); Urine Protein TRACE MG/DL (NEG-TRACE)
[2021-10-03] MEDS: iohexoL 350 MG/ML 100 ML INFUS..BTL 65 ML IV (21:30)
[2021-10-03] MEDS: 0.9 % Sodium Chloride 1,000 ML 999 ML IVCONT (21:41)
[2021-10-03 21:51] VITALS: BP 139/80; PULSE 85; RESP 18; TEMP 36.7; O2SAT 98
--- NOTE | 2021-10-03 22:05 | ED_ITS ---
HPI - Abdominal Pain General Chief Complaint: General Medical Stated Complaint: abd pain, diarrhea Time Seen by Provider: 10/03/21 20:39 Source: patient Mode of arrival: ambulatory Limitations: no limitations History of Present Illness HPI narrative: 55-year-old female with a past medical history of hypertension, asthma, anemia, fibromyalgia and abdominal surgery with mesh placement done at [facility] in January 2021 being followed by [facility] gerentological physiotherapist presenting to the ED with complaints of 8 days of lower abdominal pain/burning sensation with associated diarrhea worse today. Denies any fevers, chills, dizziness, headaches, neck pain/stiffness, trouble swallowing or breathing, sore throat, chest pain or shortness of breath, dyspnea exertion, orthopnea, palpitations, back pain, dysuria, hematuria, abnormal vaginal discharge, black or bloody stools, recent travel or sick contacts, focal or general weakness or any other symptoms complaints or concerns at this time. MD elicited complaint: abdominal pain Pertinent past history: other (See above) Onset (ago): day(s) (8) Pain Consistency: constant Location: RLQ and LLQ Severity: moderate Quality: burning Radiation: none Migration to: no migration Exacerbating factors: nothing Relieving factors: nothing Associated symptoms: diarrhea Related Data Home Medications Medication Instructions Recorded Confirmed hydrochlorothiazide 25 mg tablet 1 tab PO DAILY 12/18/20 01/12/21 hyoscyamine 0.15 mg tablet 0.125 mg PO Q2-4H PRN 12/18/20 01/12/21 paroxetine HCl 20 mg tablet (Paxil) 20 mg PO DAILY 01/12/21 Previous Rx's Medication Instructions Recorded menthol 0.44 %-zinc oxide 20.6 % 1 appl TOPICAL QID PRN #71 g 01/12/21 topical ointment (Calmoseptine) clindamycin HCl 300 mg capsule 300 mg PO Q8H #21 cap 01/21/21 terconazole 0.8 % vaginal cream 1 appful VAGINAL BEDTIME 3 Days 03/01/21 #20 g azithromycin 250 mg tablet See Rx Instructions .ROUTE 09/02/21 .COMPLEX #6 tab hydroxyzine HCl 50 mg tablet 50 mg PO BID PRN #14 tab 09/02/21 dicyclomine 20 mg tablet 20 mg PO BID #14 tab 10/03/21 levofloxacin 500 mg tablet 500 mg PO DAILY 7 Days #7 tab 10/03/21 metronidazole 500 mg tablet 500 mg PO BID 7 Days #14 tab 10/03/21 Allergies Allergy/AdvReac Type Severity Reaction Status Date / Time penicillin V Allergy Intermediate rash Verified 10/03/21 15:27 Penicillins Allergy Intermediate SWELLING, Verified 03/01/21 11:09 [facility] Review of Systems Review of Systems Constitutional : No Fever, No Chills, No Night Sweats, No Fatigue, No Malaise Cardiovascular : No Chest Pain, No SOB Respiratory : No Cough, No Sputum, No Wheezing, No Dyspnea Gastrointestinal : + abdominal pain and diarrhea, No Nausea, No Vomiting, No He matochezia, No Melena Genitourinary : No irregular bleeding, No Dysuria, No Urinary Frequency, No He maturia,No Urinary Incontinence, No Urgency, No Flank Pain Musculoskeletal : No joint pain, No Myalgias, No Joint Swelling Skin : No Skin Lesions, No rash Neuro : No Weakness, No Numbness, No Paresthesias, No Loss of Consciousness, No Dizziness, No Headache Heme/Lymph: No Lymphadenopathy Endocrine : No Temperature Intolerance Yes all other systems are reviewed and are negative Physical Exam Vital Signs: Vital Signs: Last Vital Signs Temp 98.1 F 10/03/21 21:51 Pulse 85 10/03/21 21:51 Resp 18 10/03/21 21:51 BP 139/80 10/03/21 21:51 Pulse Ox 98 10/03/21 21:51 BMI result Body Mass Index 31.1 vital signs have been reviewed as normal and appeared to be correct. Blood pressure 149/90. Heart rate normal. Respiration rate normal. Temperature normal. Oxygen saturation normal. Appearance: Alert. Oriented X3. No acute distress. Head: Normal external exam. Normocephalic. Eyes: PERRLA. EOMI. Conjunctiva and sclera normal. Eyelids normal. ENT: Pharynx normal. Uvula midline. Moist mucous membranes. Neck: Normal inspection. Neck supple. FROM. No adenopathy. No meningeal signs. CVS: Normal heart rate and rhythm. Heart sound normal. No murmurs noted. Pulses normal throughout. Respiratory: No respiratory distress. Painless inspiration. Breath sounds normal. No wheezes/rales/rhonchi noted. Chest nontender. No accessory muscle usage noted or decreased air movement noted. Abdomen: Soft and mild tenderness to left lower quadrant/right lower quadrant. Nondistended. No guarding. No rigidity. Bowel sounds normal in all 4 quadrants. No distention noted. No organomegaly noted. No visible injury noted. No rebound tenderness. Negative Rovsing sign. Negative obturator's sign. Negative psoas sign. Negative Stafford sign. Back: No CVA tenderness. Full range of motion noted. Skin: Skin warm and dry. Normal skin color. Normal skin turgor. No rashes/lesions/lacerations noted. Extremities: Extremities exhibit normal range of motion. Extremities nontender. Neuro: Oriented X 3. No motor deficit. No sensory deficit. Reflexes normal. Normal steady gait. MDM - Abdominal Pain MDM Narrative Medical decision making narrative: 22pm - 55-year-old female with a past medical history of hypertension, asthma, anemia, fibromyalgia and abdominal surgery with mesh placement done at [facility] in January 2021 being followed by [facility] gerentological physiotherapist presenting to the ED with complaints of 8 days of lower abdominal pain/burning sensation with associated diarrhea worse today. On exam patient has really mild tenderness palpation to right lower quadrant/left lower quadrant no guarding and no distention is noted. No CVA tenderness is noted. Labs were obtained while the patient was in triage and patient has a white blood cell count of 3000 which is similar compared to prior. Calcium 10.3. ALT 34. Similar compared to prior. Alkaline phosphate 122 mildly elevated when compared to prior. Total protein 8.3. Albumin 5.1. Otherwise all other labs are within normal limits. Patient had 15 ketones and UA otherwise no evidence of UTI. Patient had a negative COVID. CT scan abdomen pelvis with IV contrast revealed gastroenteritis versus early versus partial small-bowel obstruction although I discussed this case with Dr. Gorman and Dr. Vega and they do not believe that the patient has the early/partial small bowel obstruction they recommended me to discharge the patient with antibiotics and symptomatic treatment instructions to return within 72 hours or sooner if sy mptoms persist or worsen and to follow-up with primary care provider otherwise. Therefore discussed this with the patient and she is aware that she could possibly have a early/partial small bowel obstruction although we believe it is gastroenteritis therefore will DC home with antibiotics and warranted the patient to return if any new or worsening symptoms or symptoms persist. Patient understands agrees this plan. Medical Records Attestation: I reviewed the patient's medical records. Lab Data Attestation: I reviewed the patient's lab results. Result diagrams: 10/03/21 15:56 10/03/21 15:56 Labs: Lab Results 10/03/21 10/03/21 10/03/21 Range/Units 15:56 15:56 20:57 WBC 3.6 L (4.8-10.8) X10*3/uL RBC 4.94 (4.20-5.50) X10*6/uL Hgb 14.2 (12.0-16.0) g/dl Hct 40.4 (37.0-47.0) % MCV 81.8 (80.0-98.0) fL MCH 28.7 (27.0-33.0) pg MCHC 35.1 H (31.0-35.0) g/dl RDW 13.3 (11.0-16.0) % Plt Count 339 (160-400) X10*3/uL MPV 9.6 (9.4-12.3) fL Immature Gran % (Auto) 0.0 (0.0-0.4) % Neut % (Auto) 52.1 (45-73) % Lymph % (Auto) 38.1 (20-40) % [place] % (Auto) 6.7 (2-11) % Eos % (Auto) 1.7 (0-4) % Baso % (Auto) 1.4 (0-2) % Lymph # (Auto) 1.4 (1.2-4.9) X10*3/uL [place] # (Auto) 0.2 (0.1-1.2) X10*3/uL Eos # (Auto) 0.1 (0.0-0.4) X10*3/uL Baso # (Auto) 0.1 (0.0-0.2) X10*3/uL Abs Immat Gran (auto) 0.00 (0.00-0.03) X10*3/uL Absolute Neuts (auto) 1.9 L (2.0-8.3) x10*3/uL Absolute Nucleated RBC 0.000 (0.0-0.012) X10*3/uL Nucleated RBC % (auto) 0.0 (0.0-0.2) /100WBC Sodium 141 (135-145) mmol/L Potassium 3.5 (3.3-5.1) mmol/L Chloride 105 (96-108) mmol/L Carbon Dioxide 26 (22-29) mmol/L Anion Gap 14 (12-20) BUN 16 (9-16) mg/dL Creatinine 0.82 (0.5-1.4) mg/dL Estim Creat Clear Calc 63.8 Estimated GFR > 60 Random Glucose 92 (60-115) mg/dL Calcium 10.3 H D (8.4-10.2) mg/dL Total Bilirubin 0.7 (0.0-1.0) mg/dL AST 31 (5-31) U/L ALT 34 H (0-31) U/L Alkaline Phosphatase 122 H D (39-117) U/L Total Protein 8.3 H (6.5-8.0) g/dL Albumin 5.1 H (3.5-5.0) g/dL Urine Color DK YELLOW Urine Appearance HAZY Urine pH 6.0 (5.0-8.0) Ur Specific [place] >= 1.030 H (1.005-1.025) Urine Protein TRACE (NEG-TRACE) MG/DL Urine Glucose (UA) NEG (NEG) MG/DL Urine Ketones 15 (NEG) MG/DL Urine Blood NEG (NEG) Urine Nitrite NEG (NEG) Ur Leukocyte Esterase NEG (NEG) COVID-19 (TONIE) (Negative) COVID-19 Clin Com 10/03/21 Range/Units 22:08 WBC (4.8-10.8) X10*3/uL RBC (4.20-5.50) X10*6/uL Hgb (12.0-16.0) g/dl Hct (37.0-47.0) % MCV (80.0-98.0) fL MCH (27.0-33.0) pg MCHC (31.0-35.0) g/dl RDW (11.0-16.0) % Plt Count (160-400) X10*3/uL MPV (9.4-12.3) fL Immature Gran % (Auto) (0.0-0.4) % Neut % (Auto) (45-73) % Lymph % (Auto) (20-40) % [place] % (Auto) (2-11) % Eos % (Auto) (0-4) % Baso % (Auto) (0-2) % Lymph # (Auto) (1.2-4.9) X10*3/uL [place] # (Auto) (0.1-1.2) X10*3/uL Eos # (Auto) (0.0-0.4) X10*3/uL Baso # (Auto) (0.0-0.2) X10*3/uL Abs Immat Gran (auto) (0.00-0.03) X10*3/uL Absolute Neuts (auto) (2.0-8.3) x10*3/uL Absolute Nucleated RBC (0.0-0.012) X10*3/uL Nucleated RBC % (auto) (0.0-0.2) /100WBC Sodium (135-145) mmol/L Potassium (3.3-5.1) mmol/L Chloride (96-108) mmol/L Carbon Dioxide (22-29) mmol/L Anion Gap (12-20) BUN (9-16) mg/dL Creatinine (0.5-1.4) mg/dL Estim Creat Clear Calc Estimated GFR Random Glucose (60-115) mg/dL Calcium (8.4-10.2) mg/dL Total Bilirubin (0.0-1.0) mg/dL AST (5-31) U/L ALT (0-31) U/L Alkaline Phosphatase (39-117) U/L Total Protein (6.5-8.0) g/dL Albumin (3.5-5.0) g/dL Urine Color Urine Appearance Urine pH (5.0-8.0) Ur Specific [place] (1.005-1.025) Urine Protein (NEG-TRACE) MG/DL Urine Glucose (UA) (NEG) MG/DL Urine Ketones (NEG) MG/DL Urine Blood (NEG) Urine Nitrite (NEG) Ur Leukocyte Esterase (NEG) COVID-19 (TONIE) Negative (Negative) COVID-19 Clin Com See Note Imaging Data CT scan abdomen pelvis with IV contrast: Attestation: I personally reviewed and interpreted this imaging study as follows: Radiologist's impression: FINDINGS: LUNG BASES: There is a new 2 mm pulmonary nodule in the right middle lobe of uncertain significance (4:36). There is redemonstration of a stable nodularity in the right lung base (4:143) likely related with bronchial wall thickening and subsegmental atelectases. No focal consolidation or pleural effusion.? LIVER, GALLBLADDER, AND BILIARY TREE: The liver is normal in size, shape, and attenuation. A tiny calcified granuloma in the right hepatic lobe (3:14) is again noted. A cyst in the periphery of the right hepatic lobe is unchanged (3:19). No new focal hepatic lesion. The gallbladder is not identified, possibly under distended or surgically removed. There is no biliary ductal dilatation.? PANCREAS: Unremarkable.? SPLEEN: Unremarkable.? ADRENAL GLANDS: Unremarkable.? KIDNEYS AND URETERS: The kidneys are normal in size, shape, and attenuation. Excreted intravenous contrast partially opacifying the renal calyxes limits evaluation of stones. No hydronephrosis, hydroureter, or definite calculi seen. No perinephric stranding. ? BLADDER: Underdistended. No focal abnormalities or perivesical fat stranding.? GASTROINTESTINAL TRACT: There is redemonstration of postsurgical changes with anastomosis of the small bowel in the upper abdomen. There is prominent gaseous distention of the small bowel at the level of the anastomosis without evidence of wall thickening or surrounding inflammatory changes. There are multiple mildly prominent, fluid-filled and hyperemic loops of small bowel in the left hemiabdomen measuring up to approximately 3.3 cm in maximum diameter without a clear transition point is not identified. There are no pericolic inflammatory changes. ABDOMINAL WALL: Midline surgical scar with stable fat stranding and minimal amount of fluid. No abdominal hernia.? LYMPH NODES: No lymphadenopathy by size criteria. VASCULAR: Scattered atherosclerotic disease. The abdominal aorta is of normal diameter. PELVIC VISCERA: Normal CT appearance of the uterus. No suspicious adnexal lesions.? OSSEOUS STRUCTURES: No acute or aggressive osseous abnormalities.? CT/CT abdomen pelvis w con IMPRESSION: ? Hyperemic and mildly distended loops of small bowel in the left abdomen that could be related with gastroenteritis in the appropriate clinical setting. Although potentially, these could also represent an early and partial small bowel obstruction. Clinical correlation and attention on follow-up is recommended. ? No pneumatosis, free air or drainable collections. Discharge Plan Discharge Clinical Impression: Gastroenteritis Patient Disposition: Home, Self-Care Instructions: Gastroenteritis (ED) Additional Instructions: You most likely have gastroenteritis if your symptoms persist or worsen you need to return within 72 hours. Follow-up with your gerentological physiotherapist/primary care provider otherwise Prescriptions: New metronidazole 500 mg tablet 500 mg PO BID 7 Days Qty: 14 RF: 0 levofloxacin 500 mg tablet 500 mg PO DAILY 7 Days Qty: 7 RF: 0 dicyclomine 20 mg tablet 20 mg PO BID Qty: 14 RF: 0 No Action clindamycin HCl 300 mg capsule 300 mg PO Q8H Qty: 21 RF: 0 hydrochlorothiazide 25 mg tablet 1 tab PO DAILY RF: 0 hyoscyamine 0.15 mg Tablet 0.125 mg PO Q2-4H PRN (Reason: Stomach Upset) RF: 0 hydroxyzine HCl 50 mg tablet 50 mg PO BID PRN (Reason: anxiety) Qty: 14 RF: 0 azithromycin 250 mg tablet See Rx Instructions .ROUTE .COMPLEX Qty: 6 RF: 0 paroxetine HCl [Paxil] 20 mg tablet 20 mg PO DAILY RF: 0 Calmoseptine 0.44-20.6 % ointment 1 appl topical QID PRN (Reason: perianal burning) Qty: 71 RF: 0 terconazole 0.8 % cream 1 appful vaginal BEDTIME 3 Days Qty: 20 RF: 0 Referrals: Armando Salgado MD [Primary Care Provider] - 2 days Interventions: ED Discharge Assessment Last Done: 10/03/21 23:14 Discharge Date/Time: 10/03/21 23:35 Print Language: Korean [facility] Past Medical History Attestation statement: The following information was validated with the patient. Medical History Abdominal pain Anemia Asthma Bowel obstruction Fibromyalgia HTN (hypertension) Hypertension Internal and external hemorrhoids without complication Recurrent incisional hernia Surgical History Hx of appendectomy Hx of cholecystectomy Family History Family History Sister History of colon cancer Social History Social History Household Members: None Housing: Apartment Do you presently have visiting nurse or other home services: No Patient Tobacco Use Status: Never used Tobacco Advance Directives: No Advance Directives Information Provided: Yes Patient : No service: No Current occupational status: unemployed
[2021-10-03 22:44] LABS: COVID-19 Test Negative (Negative)
[2021-10-03] MEDS: metroNIDAZOLE 500 MG TABLET PO (23:28)
[2021-10-03] MEDS: levoFLOXacin 500 MG TABLET PO (23:28)
== END 2021-10-03 23:35 | disposition home or self-care (01) ==
PROVIDERS: Physician Assistant Medical; Emergency Provider Emergency Medicine; PCP Internal Medicine Geriatric Medicine
DX: K52.9 Noninfective gastroenteritis and colitis, unspecified (principal); I10 Essential (primary) hypertension; J45.909 Unspecified asthma, uncomplicated; Z20.822 Contact with and (suspected) exposure to COVID-19
CPT/HCPCS: 36415; 74177; 80053; 81003; 85025; 87635; 96360; 99284; Q9967

== ENCOUNTER 2021-10-27 11:48 | Outpatient (REF) | payer MEDICAID, SELFPAY ==
--- NOTE | ~2021-10-27 | XR_ITS ---
EXAMINATION: XR CHEST CLINICAL INFORMATION: Hemodynamically COMPARISON: None TECHNIQUE: 2 views of the chest were obtained. FINDINGS: No significant abnormality is noted involving the heart, lungs, mediastinum, bony thorax or soft tissues. XR/XR chest 2V IMPRESSION: Unremarkable chest examination.
[2021-10-27 12:01] LABS: MANUAL DIFF FLAG NO
[2021-10-27 12:09] LABS: Basophils Percent Auto 0.7 % (0-2); Eosinophils Absolute Auto 0.1 X10*3/uL (0.0-0.4); Eosinophils Percent Auto 1.4 % (0-4); Hematocrit 40.8 % (37.0-47.0); Hemoglobin 13.8 g/dl (12.0-16.0); Lymphocytes Absolute Auto 1.4 X10*3/uL (1.2-4.9); Lymphocytes Percent Auto 32.3 % (20-40); Mean Corpuscular HGB Conc 33.8 g/dl (31.0-35.0); Mean Corpuscular Hemoglobin 27.6 pg (27.0-33.0); Mean Corpuscular Volume 81.6 fL (80.0-98.0); Mean Platelet Volume 9.1 fL (9.4-12.3); Monocytes Absolute Auto 0.3 X10*3/uL (0.1-1.2); Monocytes Percent Auto 5.9 % (2-11); Neutrophils Absolute Auto 2.5 x10*3/uL (2.0-8.3); Neutrophils Percent Auto 59.7 % (45-73); Platelet Count 357 X10*3/uL (160-400); Red Cell Distribution Width 13.1 % (11.0-16.0); White Blood Count 4.2 X10*3/uL (4.8-10.8)
[2021-10-27 12:33] LABS: Anion Gap 11 (12-20); Blood Urea Nitrogen 13 mg/dL (9-16); Calcium 10.6 mg/dL (8.4-10.2); Carbon Dioxide 30 mmol/L (22-29); Chloride 103 mmol/L (96-108); Estimated Glomerular Filt Rate > 60; Glucose Random 149 mg/dL (60-115); Potassium 3.8 mmol/L (3.3-5.1); Sodium 140 mmol/L (135-145)
== END 2021-10-27 11:49 | disposition home or self-care (01) ==
LOC: HO.XRAY 11:48
PROVIDERS: PCP Internal Medicine Geriatric Medicine; Visit Provider Nurse Practitioner
DX: R07.81 Pleurodynia (principal); U07.1 COVID-19
CPT/HCPCS: 36415; 71046; 80048; 85025

== ENCOUNTER 2021-11-07 09:59 | Emergency (ER) | payer MEDICAID, SELFPAY ==
--- NOTE | ~2021-11-07 | CT_ITS ---
EXAMINATION: CT ABDOMEN AND PELVIS WITHOUT CONTRAST CLINICAL INFORMATION: Abdominal pain, diarrhea COMPARISON: CT 10/03/2021 TECHNIQUE: Multidetector volumetric imaging was performed from the superior aspect of the liver through the pubic symphysis. Sagittal and coronal reformatted images were obtained on the technologist's workstation. This CT examination was performed using dose optimization techniques as appropriate, variously including the following: *Automated exposure control *Adjustment of mA and/or kV according to patient size (this includes techniques or standardized protocols for targeted exams where dose is matched to indication/reason for exam; i.e. extremities or head) *Use of iterative reconstruction technique DLP: 475 mGy-cm FINDINGS: The lack of intravenous contrast limits evaluation of the solid visceral organs including the liver, spleen, pancreas, and kidneys. LUNG BASES: Trace pericardial fluid. Normal heart size. Lung bases are clear. LIVER, GALLBLADDER, AND BILIARY TREE: Again seen is a cyst along the posterior margin the right lobe of liver. Coarse calcification unchanged. No new suspicious or concerning mass seen limited by lack of IV contrast. Gallbladder not seen likely surgically absent. No biliary ductal dilatation. PANCREAS: Limited non-contrast evaluation is normal. No segundo-pancreatic fluid. SPLEEN: Limited non-contrast evaluation is normal. ADRENAL GLANDS: Normal; no adrenal mass. KIDNEYS AND URETERS: Limited non-contrast evaluation is normal. No hydronephrosis, hydroureter, or calculi seen. No perinephric stranding. GASTROINTESTINAL TRACT: Stomach is collapsed. There is a surgical anastomosis of the small bowel in the anterior abdomen. This is again noted to be distended/dilated to 4 cm, similar to the prior study. This may be postoperative in etiology as the anastomosis appears widely patent. The right colon is collapsed with wall thickening most likely attributable to underdistention. No definite abnormal colonic wall thickening or pericolonic inflammatory changes. ABDOMINAL WALL: Postoperative changes in the region of the umbilicus. Diastases of the rectus abdominis. No discrete fascial defect or hernia. LYMPH NODES: Numerous small mesenteric lymph nodes are seen, presumably reactive. No pathologic retroperitoneal, abdominal, or pelvic lymphadenopathy. VASCULAR: Normal caliber abdominal aorta. BLADDER: Unremarkable. PELVIC VISCERA: Normal noncontrast appearance of the uterus and ovaries. OSSEOUS STRUCTURES: No acute or suspicious osseous abnormalities. Severe lower lumbar facet arthropathy particularly at L4-L5 and L5-S1. CT/CT abdomen pelvis wo con IMPRESSION: No definite acute abnormality on noncontrast imaging. Again seen is a small bowel anastomosis in the anterior abdomen with associated dilation to a 4 cm. This could be postoperative in etiology as it has had a similar appearance on prior studies suggesting dysmotility/impaired peristalsis. The right colon is collapsed with wall thickening likely attributable to underdistention.
[2021-11-07 10:05] VITALS: BP 144/89; PULSE 85; RESP 18; TEMP 36.8; O2SAT 97; BMI 27.3
[2021-11-07 10:42] LABS: Hematocrit 39.4 % (37.0-47.0); Hemoglobin 13.2 g/dl (12.0-16.0); Mean Corpuscular HGB Conc 33.5 g/dl (31.0-35.0); Mean Corpuscular Hemoglobin 27.7 pg (27.0-33.0); Mean Corpuscular Volume 82.6 fL (80.0-98.0); Mean Platelet Volume 9.8 fL (9.4-12.3); Platelet Count 297 X10*3/uL (160-400); Red Blood Count 4.77 X10*6/uL (4.20-5.50); Red Cell Distribution Width 13.3 % (11.0-16.0); White Blood Count 2.9 X10*3/uL (4.8-10.8)
[2021-11-07 10:43] LABS: Appearance Urine HAZY; Color Urine YELLOW; Glucose Urine UA NEG (NEG); Leukocyte Esterase Urine NEG (NEG); Nitrite Urine NEG (NEG); Urine Blood NEG (NEG); Urine Ketones NEG (NEG); Urine Protein NEG (NEG-TRACE)
[2021-11-07 10:57] LABS: Anion Gap 11 (12-20); Blood Urea Nitrogen 15 mg/dL (9-16); Calcium 10.4 mg/dL (8.4-10.2); Carbon Dioxide 31 mmol/L (22-29); Chloride 103 mmol/L (96-108); Estimated Glomerular Filt Rate > 60; Glucose Random 103 mg/dL (60-115); Lipase 43 U/L (8-78); Potassium 4.3 mmol/L (3.3-5.1); Sodium 141 mmol/L (135-145)
[2021-11-07 11:00] LABS: Troponin-I High Sensitivity < 3.5 ng/L (<3.5-17.0)
--- NOTE | 2021-11-07 16:35 | ED.ABDPAIN ---
HPI - Abdominal Pain General Chief Complaint: Abdominal Pain Stated Complaint: Abd pain Time Seen by Provider: 11/07/21 14:59 Source: patient Mode of arrival: ambulatory Limitations: no limitations History of Present Illness HPI narrative: A 6-year-old female with a history of hypertension, fibromyalgia, asthma, anemia, multiple abdominal surgeries (including incarcerated incisional hernia with resection and surgical mesh) here with reports of intermittent abdominal pain since August. Patient tells me she has had several emergency room visits for this. She followed up with Gastroenterology at [facility] and was scheduled to have a colonoscopy this week. However due to COVID it was rescheduled as the operating room is closed to elective procedures. Pain is intermittent mainly right-sided which occurs after eating food. No nausea, vomiting. Patient does have associated diarrhea 4-5 episodes daily (non-bloody). She has had a 20lb weight loss since August. No fevers, chills, urinary symptoms Related Data Home Medications Medication Instructions Recorded Confirmed hydrochlorothiazide 25 mg tablet 1 tab PO DAILY 12/18/20 01/12/21 hyoscyamine 0.15 mg tablet 0.125 mg PO Q2-4H PRN 12/18/20 01/12/21 paroxetine HCl 20 mg tablet (Paxil) 20 mg PO DAILY 01/12/21 Previous Rx's Medication Instructions Recorded menthol 0.44 %-zinc oxide 20.6 % 1 appl TOPICAL QID PRN #71 g 01/12/21 topical ointment (Calmoseptine) clindamycin HCl 300 mg capsule 300 mg PO Q8H #21 cap 01/21/21 terconazole 0.8 % vaginal cream 1 appful VAGINAL BEDTIME 3 Days 03/01/21 #20 g azithromycin 250 mg tablet See Rx Instructions .ROUTE 09/02/21 .COMPLEX #6 tab hydroxyzine HCl 50 mg tablet 50 mg PO BID PRN #14 tab 09/02/21 dicyclomine 20 mg tablet 20 mg PO BID #14 tab 10/03/21 levofloxacin 500 mg tablet 500 mg PO DAILY 7 Days #7 tab 10/03/21 metronidazole 500 mg tablet 500 mg PO BID 7 Days #14 tab 10/03/21 Allergies Allergy/AdvReac Type Severity Reaction Status Date / Time penicillin V Allergy Intermediate rash Verified 10/03/21 15:27 Penicillins Allergy Intermediate SWELLING, Verified 03/01/21 11:09 WELTS Review of Systems Review of Systems Yes all other systems are reviewed and are negative Constitutional: Reports no additional constitutional complaints, Denies body ache(s), Denies chills, Denies fever(s), Denies headache(s) and Denies weakness Eyes: Reports no additional eye complaints and Denies change in vision Reports system reviewed and no additional complaints, except as documented, Denies dizziness, Denies headache(s), Denies nasal congestion, Denies nasal discharge and Denies neck pain Cardiovascular: Reports no additional cardiovascular complaints, Denies chest pain, Denies leg edema and Denies dyspnea Respiratory: Reports no additional respiratory complaints, Denies cough and Denies dyspnea Gastrointestinal: Reports no additional gastrointestinal complaints, Reports abdominal pain, Reports diarrhea, Denies nausea and Denies vomiting Genitourinary: Reports no additional female genitourinary complaints and Denies urinary incontinence Musculoskeletal: Reports no additional musculoskeletal complaints, Denies back pain, Denies arthralgias, Denies joint swelling, Denies neck pain, Denies numbness and Denies tingling Skin/Breast: Reports system reviewed and no additional complaints, except as docu and Denies rash Reports system reviewed and no additional complaints, except as documented, Denies Abnormal speech present, Denies dizziness, Denies headache(s), Denies numbness, Denies tingling and Denies weakness Physical Exam Vital Signs: Vital Signs: Last Vital Signs Temp 98.2 F 11/07/21 10:05 Pulse 85 11/07/21 10:05 Resp 18 11/07/21 10:05 BP 144/89 H 11/07/21 10:05 Pulse Ox 97 11/07/21 10:05 BMI result Body Mass Index 27.3 Const: General: cooperative, healthy appearing, comfortable and no acute distress Orientation/consciousness: patient oriented x3 Limitations: no limitations HENMT: Head: Yes normal to inspection Ears: hearing grossly normal bilaterally and TM's normal bilaterally General nose exam: Normal external nose present Face and sinus: Yes normal facial exam Mouth: Normal oral and palatal mucosa present Throat: Yes posterior oropharynx normal, Yes tonsils normal and Yes uvula midline Eyes: General: appearance normal, both eyes and all related structures Pupils: Equal, round and reactive pupils present Neck: Neck: Yes normal visual inspection, Yes full ROM and Yes no lymphadenopathy Chest: Chest palpation & inspection: normal inspection of the chest Resp: Effort & Inspection: normal respiratory effort Auscultation: clear to auscultation bilaterally Cardio: Rate: regular rate Rhythm: regular rhythm Peripheral pulses: Peripheral pulses 2+ throughout GI: Other: Midline surgical abdominal scar noted. abdomen is obese Inspection: Yes normal to inspection Palpation (GI): Soft to palpation and Tenderness to palpation present (GI) (diffusely tender with no rebound or guarding ) Auscultation: normal bowel sounds Back/Spine/Pelvis: Thoracic/Lumbar Spine: thoracic and lumbar spine normal to inspection Skin: General skin exam: no rashes or lesions noted Neuro: General: patient oriented x3, no focal motor deficits and normal sensation to monofilament Cranial nerves: Yes Equal, round and reactive pupils present Cognition (Neuro): normal cognition Speech: No Abnormal speech present Gait exam (Neuro): Normal gait present Motor exam (neuro): 5/5 motor strength present throughout Extrem: General: Yes normal to inspection, Yes no pedal edema and Yes no calf tenderness Course Course Course Narrative: 56 yo female with history of multiple abdominal surgeries here with reports of intermittent abdominal pain with associated diarrhea. Seen outpatient by GI (additionally complaints of weight loss) and was supposed to have colonoscopy at [facility] but this cancelled as they are not doing elective surgeries being held d/t covid. On exam diffusely tender mildly. No rebound or guarding. VSS. Will check labs, UA, CT A/P 1814-Labs show mild leukopenia likely from recent viral infection (had covid end of september) otherwise unremarkable. Urine shows no signs of infection. CT shows no acute finding. I re-examined the patient she has some mild diffuse tenderness with no rebound or guarding. Her vitals are stable. She has had intermittent pain for several months. She has followed up with GI and is waiting for colonoscopy. I recommend she continue to follow-up with them. Reviewed worrisome signs and symptoms of when to return to the emergency department. Comfortable discharge home. MDM - Abdominal Pain MDM Narrative Medical decision making narrative: SBO, ileus, gastroenteritis Medical Records Attestation: I reviewed the patient's medical records. Lab Data Attestation: I reviewed the patient's lab results. Result diagrams: 11/07/21 10:30 11/07/21 10:30 Labs: Lab Results 11/07/21 11/07/21 11/07/21 Range/Units 10:30 10:30 10:30 WBC 2.9 L (4.8-10.8) X10*3/uL RBC 4.77 (4.20-5.50) X10*6/uL Hgb 13.2 (12.0-16.0) g/dl Hct 39.4 (37.0-47.0) % MCV 82.6 (80.0-98.0) fL MCH 27.7 (27.0-33.0) pg MCHC 33.5 (31.0-35.0) g/dl RDW 13.3 (11.0-16.0) % Plt Count 297 (160-400) X10*3/uL MPV 9.8 (9.4-12.3) fL Absolute Nucleated RBC 0.000 (0.0-0.012) X10*3/uL Nucleated RBC % (auto) 0.0 (0.0-0.2) /100WBC Sodium 141 (135-145) mmol/L Potassium 4.3 (3.3-5.1) mmol/L Chloride 103 (96-108) mmol/L Carbon Dioxide 31 H (22-29) mmol/L Anion Gap 11 L (12-20) BUN 15 (9-16) mg/dL Creatinine 0.80 (0.5-1.4) mg/dL Estim Creat Clear Calc 66.0 Estimated GFR > 60 Random Glucose 103 (60-115) mg/dL Calcium 10.4 H (8.4-10.2) mg/dL Troponin I High Sens < 3.5 (<3.5-17.0) ng/L Lipase 43 (8-78) U/L Urine Color Urine Appearance Urine pH (5.0-8.0) Ur Specific [place] (1.005-1.025) Urine Protein (NEG-TRACE) MG/DL Urine Glucose (UA) (NEG) MG/DL Urine Ketones (NEG) MG/DL Urine Blood (NEG) Urine Nitrite (NEG) Ur Leukocyte Esterase (NEG) 11/07/21 Range/Units 10:35 WBC (4.8-10.8) X10*3/uL RBC (4.20-5.50) X10*6/uL Hgb (12.0-16.0) g/dl Hct (37.0-47.0) % MCV (80.0-98.0) fL MCH (27.0-33.0) pg MCHC (31.0-35.0) g/dl RDW (11.0-16.0) % Plt Count (160-400) X10*3/uL MPV (9.4-12.3) fL Absolute Nucleated RBC (0.0-0.012) X10*3/uL Nucleated RBC % (auto) (0.0-0.2) /100WBC Sodium (135-145) mmol/L Potassium (3.3-5.1) mmol/L Chloride (96-108) mmol/L Carbon Dioxide (22-29) mmol/L Anion Gap (12-20) BUN (9-16) mg/dL Creatinine (0.5-1.4) mg/dL Estim Creat Clear Calc Estimated GFR Random Glucose (60-115) mg/dL Calcium (8.4-10.2) mg/dL Troponin I High Sens (<3.5-17.0) ng/L Lipase (8-78) U/L Urine Color YELLOW Urine Appearance HAZY Urine pH 6.0 (5.0-8.0) Ur Specific [place] 1.020 (1.005-1.025) Urine Protein NEG (NEG-TRACE) MG/DL Urine Glucose (UA) NEG (NEG) MG/DL Urine Ketones NEG (NEG) MG/DL Urine Blood NEG (NEG) Urine Nitrite NEG (NEG) Ur Leukocyte Esterase NEG (NEG) Imaging Data CT scan - abdomen: Attestation: I personally reviewed and interpreted this imaging study as follows: Radiologist's impression: FINDINGS: The lack of intravenous contrast limits evaluation of the solid visceral organs including the liver, spleen, pancreas, and kidneys. LUNG BASES: Trace pericardial fluid. Normal heart size. Lung bases are clear.? LIVER, GALLBLADDER, AND BILIARY TREE: Again seen is a cyst along the posterior margin the right lobe of liver. Coarse calcification unchanged. No new suspicious or concerning mass seen limited by lack of IV contrast. Gallbladder not seen likely surgically absent. No biliary ductal dilatation.? PANCREAS: Limited non-contrast evaluation is normal.? No segundo-pancreatic fluid.? SPLEEN: Limited non-contrast evaluation is normal. ? ADRENAL GLANDS: Normal; no adrenal mass.? KIDNEYS AND URETERS: Limited non-contrast evaluation is normal. No hydronephrosis, hydroureter, or calculi seen. No perinephric stranding. ? GASTROINTESTINAL TRACT: Stomach is collapsed. There is a surgical anastomosis of the small bowel in the anterior abdomen. This is again noted to be distended/dilated to 4 cm, similar to the prior study. This may be postoperative in etiology as the anastomosis appears widely patent. The right colon is collapsed with wall thickening most likely attributable to underdistention. No definite abnormal colonic wall thickening or pericolonic inflammatory changes.? ABDOMINAL WALL: Postoperative changes in the region of the umbilicus. Diastases of the rectus abdominis. No discrete fascial defect or hernia.? LYMPH NODES: Numerous small mesenteric lymph nodes are seen, presumably reactive. No pathologic retroperitoneal, abdominal, or pelvic lymphadenopathy. VASCULAR: Normal caliber abdominal aorta. BLADDER: Unremarkable.? PELVIC VISCERA: Normal noncontrast appearance of the uterus and ovaries.? OSSEOUS STRUCTURES: No acute or suspicious osseous abnormalities. Severe lower lumbar facet arthropathy particularly at L4-L5 and L5-S1. CT/CT abdomen pelvis wo con IMPRESSION: No definite acute abnormality on noncontrast imaging. ? Again seen is a small bowel anastomosis in the anterior abdomen with associated dilation to a 4 cm. This could be postoperative in etiology as it has had a similar appearance on prior studies suggesting dysmotility/impaired peristalsis.? ? The right colon is collapsed with wall thickening likely attributable to underdistention. 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 Follow-up with your primary care doctor for a repeat lab in a few weeks. [place] diet, increase fluids, rest Prescriptions: No Action clindamycin HCl 300 mg capsule 300 mg PO Q8H Qty: 21 RF: 0 hydrochlorothiazide 25 mg tablet 1 tab PO DAILY RF: 0 hyoscyamine 0.15 mg Tablet 0.125 mg PO Q2-4H PRN (Reason: Stomach Upset) RF: 0 hydroxyzine HCl 50 mg tablet 50 mg PO BID PRN (Reason: anxiety) Qty: 14 RF: 0 azithromycin 250 mg tablet See Rx Instructions .ROUTE .COMPLEX Qty: 6 RF: 0 metronidazole 500 mg tablet 500 mg PO BID 7 Days Qty: 14 RF: 0 levofloxacin 500 mg tablet 500 mg PO DAILY 7 Days Qty: 7 RF: 0 dicyclomine 20 mg tablet 20 mg PO BID Qty: 14 RF: 0 paroxetine HCl [Paxil] 20 mg tablet 20 mg PO DAILY RF: 0 Calmoseptine 0.44-20.6 % ointment 1 appl topical QID PRN (Reason: perianal burning) Qty: 71 RF: 0 terconazole 0.8 % cream 1 appful vaginal BEDTIME 3 Days Qty: 20 RF: 0 Referrals: Name,MD Armando [Primary Care Provider] - 2 days Interventions: ED Discharge Assessment Last Done: 11/07/21 17:58 Discharge Date/Time: 11/07/21 17:59 [facility] Past Medical History Attestation statement: The following information was validated with the patient. Source: old records reviewed and nursing notes reviewed Medical History Abdominal pain Anemia Asthma Bowel obstruction Fibromyalgia HTN (hypertension) Hypertension Internal and external hemorrhoids without complication Recurrent incisional hernia Surgical History Hx of appendectomy Hx of cholecystectomy Family History Family History Sister History of colon cancer Social History Social History Household Members: None Housing: Apartment Do you presently have visiting nurse or other home services: No Patient Tobacco Use Status: Never used Tobacco Advance Directives: No Advance Directives Information Provided: No Patient : No service: No Current occupational status: unemployed
[2021-11-07] MEDS: Magnesium Hydrox/Alum Hydrox 30 ML ORAL.SUSP PO (17:02)
[2021-11-07] MEDS: Lidocaine HCl Viscous 2 % 15 ML SOLUTION MUCOUS MEM (17:02)
--- NOTE | 2021-11-07 17:54 | PC.NURSE ---
PT EVALUATED BY PROVIDER. PT AWAKE, ALERT AND ORIENTED X 3. SKIN WARM AND DRY. RESP UNLABORED. DENIES N/V. NEUROS INTACT. +CMS. PT UPDATED ON PLAN OF CARE BY PROVIDER. AGREEABLE TO PLAN
== END 2021-11-07 17:59 | disposition home or self-care (01) ==
PROVIDERS: Emergency Provider Internal Medicine; PCP Internal Medicine Geriatric Medicine
DX: R10.9 Unspecified abdominal pain (principal); I10 Essential (primary) hypertension
CPT/HCPCS: 36415; 74176; 80048; 81003; 83690; 84484; 85027; 99283; 99284

== ENCOUNTER → 2021-11-09 09:43 | Outpatient (BNVA) | payer MEDICAID, SELFPAY | PROVIDERS: PCP Internal Medicine Geriatric Medicine; Visit Provider Obstetrics & Gynecology | DX: R10.9 Unspecified abdominal pain (principal) | CPT/HCPCS: 99212 ==

== ENCOUNTER → 2021-11-16 09:54 | Outpatient (BNVA) | payer MEDICAID, SELFPAY | PROVIDERS: PCP Internal Medicine Geriatric Medicine; Referring Provider Internal Medicine Geriatric Medicine; Visit Provider Surgery | DX: R10.9 Unspecified abdominal pain (principal) | CPT/HCPCS: 99212 ==

== ENCOUNTER 2021-12-09 14:58 | Outpatient (REF) | payer MEDICAID, SELFPAY ==
--- NOTE | ~2021-12-09 | US_ITS ---
EXAMINATION: US PELVIS CLINICAL INFORMATION: Pelvic pain COMPARISON: Previous pelvic ultrasound March [address] of the abdomen and pelvis October 2021 TECHNIQUE: Ultrasound of the pelvis is performed using both transabdominal and transvaginal transducers along with Doppler. Transvaginal imaging is performed due to inadequate visualization transabdominally. FINDINGS: The uterus is anteverted and measures 8.6 x 3.7 x 4.4 cm in dimension. There are 2 uterine fibroids measuring 1.2 cm in the anterior uterine body and 1.9 x 2.3 x 2 cm in the fundus. No other focal uterine lesion is seen. Endometrial thickness is normal measuring 0.5 cm. The ovaries are normal. The right ovary measures 2.8 x 1.7 x 1.9 cm. The left ovary measures 2.6 x 1.8 x 2 cm. There is no fluid in the pelvis. US/US pelvic and transvaginal IMPRESSION: 2 small uterine fibroids. Normal-appearing ovaries.
== END 2021-12-09 14:59 | disposition home or self-care (01) ==
LOC: HO.HMGCX 14:58
PROVIDERS: PCP Internal Medicine Geriatric Medicine; Visit Provider Obstetrics & Gynecology
DX: R10.2 Pelvic and perineal pain (principal)
CPT/HCPCS: 76830; 76856

== ENCOUNTER → 2021-12-19 13:39 | Outpatient (BNVA) | payer MEDICAID, SELFPAY | PROVIDERS: PCP Internal Medicine Geriatric Medicine; Visit Provider Obstetrics & Gynecology ==

== ENCOUNTER 2022-01-26 13:29 | Emergency (ER) | payer MEDICAID, SELFPAY ==
--- NOTE | ~2022-01-26 | US_ITS ---
EXAMINATION: US VENOUS ULTRASOUND WITH DOPPLER LOWER EXTREMITY, LEFT CLINICAL INFORMATION: Calf pain COMPARISON: None TECHNIQUE: Ultrasound of the deep veins is performed from the hip to the calf with compression sonography and color and pulse Doppler assessment. Spectral analysis with color-flow imaging is performed. FINDINGS: There is normal venous compression and respiratory variation and augmented flow. The visualized common femoral vein, superficial femoral vein, profunda femoral vein, popliteal vein, and the trifurcation region shows no evidence of deep venous thrombosis. There is no significant popliteal fossa cyst. If the patient's symptoms persist, followup ultrasound in 5 days 7 days might be of value to exclude proximal propagation from a non-visualized calf vein. US/US venous duplex LE LT IMPRESSION: No DVT demonstrated in the left lower extremity.
[2022-01-26 14:23] VITALS: BP 165/100; PULSE 83; RESP 19; TEMP 36.1; O2SAT 98; BMI 24.7
--- NOTE | 2022-01-26 15:53 | ED.EXTPRO ---
HPI - Extremity Problem General Chief complaint: Extremity Problem Stated complaint: l leg pain Time Seen by Provider: 01/26/22 15:53 Source: patient Mode of arrival: ambulatory History of Present Illness HPI Narrative: 56-year-old female with a past medical history of anemia, asthma, fibromyalgia, HTN, presenting to the ED complaining of left calf intermittent cramping since yesterday. Admits received COVID-19 booster yesterday. Denies known injury/trauma or fall, swelling, numbness, tingling, weakness, SOB, CP, history of clots. Denies taking AC MD Complaint: extremity pain Onset (ago): day(s) Related Data Home Medications Medication Instructions Recorded Confirmed paroxetine HCl 20 mg tablet (Paxil) 20 mg PO DAILY 01/12/21 11/16/21 amlodipine 10 mg tablet 10 mg PO DAILY 11/09/21 11/16/21 buspirone 7.5 mg tablet 7.5 mg PO BID 11/09/21 11/16/21 cromolyn 5.2 mg/spray (4 %) nasal 1 spray INTRANASAL TID 11/09/21 11/16/21 spray hydroxyzine HCl 25 mg tablet 25 - 50 mg PO Q6H PRN 11/09/21 11/16/21 lisinopril 10 mg tablet 10 mg PO DAILY 11/09/21 11/16/21 omeprazole 20 mg capsule,delayed 20 mg PO DAILY 11/09/21 11/16/21 release Previous Rx's Medication Instructions Recorded hydroxyzine HCl 50 mg tablet 50 mg PO BID PRN #14 tab 09/02/21 Allergies Allergy/AdvReac Type Severity Reaction Status Date / Time penicillin V Allergy Intermediate rash Verified 11/16/21 10:03 Penicillins Allergy Intermediate SWELLING, Verified 11/16/21 10:03 TSERING Review of Systems Review of Systems: Constitutional: No Fever, No Chills ENT/Mouth: No Ear Pain, No Nasal Congestion, No sore throat, No Rhinorrhea, No Swallowing Difficulty Cardiovascular: No Chest Pain, No SOB Respiratory: No Cough, No Sputum Gastrointestinal: No Nausea, No Vomiting, No Diarrhea, No Constipation, No Abdominal pain Genitourinary: No Dysuria, No Urinary Frequency, No Urgency, No Flank Pain Musculoskeletal: + joint pain, No Myalgias, No Joint Swelling Skin: No Skin Lesions, No rash Neuro: No Weakness, No Numbness, No Paresthesias Yes all other systems are reviewed and are negative [facility] Past Medical History Attestation statement: The following information was validated with the patient. Medical History Abdominal pain Anemia Asthma Bowel obstruction Fibromyalgia HTN (hypertension) Hypertension Internal and external hemorrhoids without complication Recurrent incisional hernia Surgical History Hx of appendectomy Hx of cholecystectomy Family History Family History Sister History of colon cancer Social History Social History Household Members: None Housing: Apartment Do you presently have visiting nurse or other home services: No Patient Tobacco Use Status: Never used Tobacco Advance Directives: No Advance Directives Information Provided: No service: No Current occupational status: unemployed Physical Exam Vital Signs: Vital Signs: Last Vital Signs Temp 97 F 01/26/22 14:23 Pulse 83 01/26/22 14:23 Resp 19 01/26/22 14:23 BP 165/100 H 01/26/22 14:23 Pulse Ox 98 01/26/22 14:23 BMI result Body Mass Index 24.7 Const: General: cooperative, healthy appearing, no acute distress, alert, awake and Physically active Orientation/consciousness: patient oriented x3 Limitations: no limitations HEENT: Head: Yes normal to inspection and Yes atraumatic Ears: hearing grossly normal bilaterally General nose exam: Normal external nose present Face and sinus: Yes normal facial exam Eyes: General: appearance normal, both eyes and all related structures EOM: EOMs intact bilaterally Neck: Neck: Yes normal visual inspection and Yes no meningeal signs Resp: Effort & Inspection: normal respiratory effort and no respiratory distress Auscultation: clear to auscultation bilaterally Cardio: Rate: regular rate Heart sounds: S1 normal heart sound present and S2 normal heart sound present Peripheral pulses: dorsalis pedis present Skin: Rashes: no rashes Wounds: no wounds Neuro: General: patient oriented x3 and no meningeal signs Gait exam (Neuro): Normal gait present Extrem: Other: Left calf without notable deformity. No lower extremity tenderness elicited. Sensation intact to light touch. Distal pulses intact. General: Yes normal to inspection, Yes no pedal edema, Yes no calf tenderness and Yes normal gait Course Course Course Narrative: -venous duplex ultrasound negative for DVT > results discussed with patient including recent signs and symptoms and strict return precautions and needed close follow-up with PCP MDM - Extremity (Nontraumatic) MDM Narrative Medical decision making narrative: 56-year-old female with a past medical history of anemia, asthma, fibromyalgia, HTN, presenting to the ED complaining of left calf intermittent cramping since yesterday. On exam hypertensive, NAD/nontoxic, physical exam as above. Concern for DVT vs muscle cramping/MSK pain. Low concern for PE or fracture Plan: Ultrasound Differential Diagnosis Differential diagnosis: Likely deep vein thrombosis of lower extremity Medical Records Attestation: I reviewed the patient's medical records. Lab Data Attestation: I reviewed the patient's lab results. Discharge Plan Discharge Clinical Impression: Cramps of left lower extremity Patient Disposition: Home, Self-Care Instructions: Leg Cramps (ED) Additional Instructions: Your ultrasound was negative for blood clot. Apply warm compresses. Take Tylenol and Motrin as needed Rest Elevate her leg If symptoms persist or worsen, comes become more constant/persistent, develops swelling, shortness breath, or chest pain please return to the ED. Follow-up with your doctor Prescriptions: No Action hydroxyzine HCl 50 mg tablet 50 mg PO BID PRN (Reason: anxiety) Qty: 14 0RF paroxetine HCl [Paxil] 20 mg tablet 20 mg PO DAILY 0RF cromolyn 5.2 mg/spray (4 %) spray,non-aerosol 1 spray intranasal TID 0RF hydroxyzine HCl 25 mg tablet 25 - 50 mg PO Q6H PRN (Reason: panic attack) 0RF omeprazole 20 mg capsule,delayed release(DR/EC) 20 mg PO DAILY 0RF buspirone 7.5 mg tablet 7.5 mg PO BID 0RF lisinopril 10 mg tablet 10 mg PO DAILY 0RF amlodipine 10 mg tablet 10 mg PO DAILY 0RF Referrals: Name,MD Armando [Primary Care Provider] - 3 days
== END 2022-01-26 16:08 | disposition home or self-care (01) ==
PROVIDERS: Emergency Provider Emergency Medicine Emergency Medical Services; PCP Internal Medicine Geriatric Medicine
DX: R25.2 Cramp and spasm (principal); M79.662 Pain in left lower leg; I10 Essential (primary) hypertension
CPT/HCPCS: 93971; 99283; 99284

== ENCOUNTER 2022-04-01 18:48 | Emergency (ER) | payer MEDICAID, SELFPAY ==
--- NOTE | ~2022-04-01 | XR_ITS ---
EXAMINATION: XR CHEST CLINICAL INFORMATION: Cough chest wall pain COMPARISON: Prior chest October 2021 TECHNIQUE: 2 views of the chest were obtained. FINDINGS: No significant abnormality is noted involving the heart, lungs, mediastinum, bony thorax or soft tissues. XR/XR chest 2V IMPRESSION: Unremarkable examination.
[2022-04-01 18:51] VITALS: BP 170/94; PULSE 90; RESP 18; TEMP 36.8; O2SAT 99; BMI 29.2
--- NOTE | 2022-04-01 19:28 | ED.GENADULT ---
HPI - General Adult General Chief complaint: General Medical Stated complaint: chest pain, coughing, congestion Time Seen by Provider: 04/01/22 19:11 Source: patient Mode of arrival: ambulatory Limitations: no limitations History of Present Illness HPI narrative: Patient presents emergency department for evaluation of cause, back and chest pain with nasal congestion p.o. she states she has had symptoms him stools. Has diffuse anterior upper chest pain and upper back pain that is reproducible to palpation, cough, deep inspiration. Reports pain to be present even when she is not coughing or deep breathing though. She has tried Delsym at home without significant improvement. She denies any known sick contacts. She reports she has been vaccinated in posted for COVID-19. Denies fevers, chills, sore throat, postnasal drip, neck pain, stiffness, palpitations, shortness of breath, difficulty breathing, nausea, vomiting, abdominal pain, lower extremity pain/swelling/numbness or tingling. Related Data Home Medications Medication Instructions Recorded Confirmed paroxetine HCl 20 mg tablet (Paxil) 20 mg PO DAILY 01/12/21 11/16/21 amlodipine 10 mg tablet 10 mg PO DAILY 11/09/21 11/16/21 buspirone 7.5 mg tablet 7.5 mg PO BID 11/09/21 11/16/21 cromolyn 5.2 mg/spray (4 %) nasal 1 spray intranasal TID 11/09/21 11/16/21 spray hydroxyzine HCl 25 mg tablet 25 - 50 mg PO Q6H PRN panic attack 11/09/21 11/16/21 lisinopril 10 mg tablet 10 mg PO DAILY 11/09/21 11/16/21 omeprazole 20 mg capsule,delayed 20 mg PO DAILY 11/09/21 11/16/21 release Previous Rx's Medication Instructions Recorded hydroxyzine HCl 50 mg tablet 50 mg PO BID PRN anxiety #14 tabs 09/02/21 guaifenesin 600 mg tablet, 600 mg PO Q12H PRN congestion #10 04/01/22 extended release 12 hr tabs Allergies Allergy/AdvReac Type Severity Reaction Status Date / Time penicillin V Allergy Intermediate rash Verified 11/16/21 10:03 Penicillins Allergy Intermediate SWELLING, Verified 11/16/21 10:03 WELTS NSAIDS (Non-Steroidal AdvReac Heartburn Verified 04/01/22 19:40 Anti-Inflamma Review of Systems Review of Systems: Constitutional: No weight loss, fever, chills, weakness or fatigue. Skin: No rash or itching. Cardiovascular: Positive chest pain.No palpitations or pedal edema. Respiratory: No shortness of breath. Positive cough. Gastrointestinal: No anorexia, nausea, vomiting or diarrhea. No abdominal pain or blood in stool. Genitourinary: No burning micturition. No urinary frequency or incontinence. Musculoskeletal: No muscle pain, back pain, joint pain or stiffness. Psychiatric: No depression or anxiety. Yes all other systems are reviewed and are negative [facility] Past Medical History Attestation statement: The following information was validated with the patient. Source: old records reviewed Medical History Abdominal pain Anemia Asthma Bowel obstruction Fibromyalgia HTN (hypertension) Hypertension Internal and external hemorrhoids without complication Recurrent incisional hernia Surgical History Hx of appendectomy Hx of cholecystectomy Family History Family History Sister History of colon cancer Social History Social History Household Members: None Housing: Apartment Do you presently have visiting nurse or other home services: No Patient Tobacco Use Status: Never used Tobacco Advance Directives: No Patient : No service: No Current occupational status: unemployed Physical Exam ED Vital Signs: Vital Signs - 24 hr 04/01/22 18:51 Temperature 98.2 F Pulse Rate 90 Respiratory Rate 18 Blood Pressure 170/94 H Pulse Oximetry 99 Oxygen Delivery Method Room Air BMI result Body Mass Index 29.2 Vital signs have been reviewed as normal and appeared to be correct. Hypertension. Heart rate normal.? Respiration rate normal. Temperature normal.? Oxygen saturation normal. Appearance: Alert.?Oriented to person, place and time. No acute distress.?Normal affect. Eyes: Pupils equal, round and reactive to light.? ENT: Pharynx normal.?? Neck: Normal inspection.? Neck supple.?? CVS: Heart sounds normal. Normal heart rate and rhythm.? Pulses normal.?? Respiratory: No respiratory distress.? Lung sounds clear to auscultation bilaterally??tenderness to the chest wall with palpation Abdomen: Soft and non-tender. Normoactive bowel sounds. Skin: Skin warm and dry.? Normal skin color.? Extremities: No lower extremity edema.? Neuro: Moves all extremities spontaneously. Sensation intact bilaterally. CN II-XII intact. No focal neuro deficits. Ambulates with normal steady gait. Course Course Course Narrative: Patient is a 56-year-old female with a past medical history of anemia, asthma, fibromyalgia, hypertension presented for evaluation of cough, and chest/back pain. She is overall well-appearing, hemodynamically stable, chest pain appears to be reproducible to palpation of the upper chest and back. Obtain CBC, CMP, troponin, EKG, chest x-ray, COVID-19 testing. Will trial Mucinex the naproxen at this time. Disposition pending results. Reevaluation(s) Reevaluation #1: EKG reveals normal sinus rhythm, nonspecific ST abnormalities consistent with prior EKG in August 2021 no acute changes, troponin <3.5. COVID-19 testing is negative. Wells/ PERC negative, unlikely to be PE. Suspect pain to be musculoskeletal in nature secondary to coughing. Discussed these findings with patient. Advised use of anti-inflammatory, naproxen twice daily as needed for pain, in addition to Mucinex as expectorant. Discussed reasons that she should return back to emergency department. Advised outpatient follow-up with her primary care provider within 1-2 days. All questions were answered, she was discharged home in stable condition. Medical Decision Making Medical Records Medical records reviewed: Yes I reviewed the patient's medical records. Lab Data Lab results reviewed: Yes I reviewed the patient's lab results. Result diagrams: 04/01/22 20:03 04/01/22 20:03 Labs: Lab Results 04/01/22 04/01/22 04/01/22 Range/Units 19:31 20:03 20:03 WBC 2.3 L (4.8-10.8) X10*3/uL RBC 4.69 (4.20-5.50) X10*6/uL Hgb 13.0 (12.0-16.0) g/dl Hct 38.5 (37.0-47.0) % MCV 82.1 (80.0-98.0) fL MCH 27.7 (27.0-33.0) pg MCHC 33.8 (31.0-35.0) g/dl RDW 13.5 (11.0-16.0) % Plt Count 256 (160-400) X10*3/uL MPV 9.2 L (9.4-12.3) fL Immature Gran % (Auto) 0.0 (0.0-0.4) % Neut % (Auto) 31.2 L (45-73) % Lymph % (Auto) 42.1 H (20-40) % Lares % (Auto) 18.5 H (2-11) % Eos % (Auto) 6.9 H (0-4) % Baso % (Auto) 1.3 (0-2) % Lymph # (Auto) 1.0 L (1.2-4.9) X10*3/uL Lares # (Auto) 0.4 (0.1-1.2) X10*3/uL Eos # (Auto) 0.2 (0.0-0.4) X10*3/uL Baso # (Auto) 0.0 (0.0-0.2) X10*3/uL Abs Immat Gran (auto) 0.00 (0.00-0.03) X10*3/uL Absolute Neuts (auto) 0.7 L (2.0-8.3) x10*3/uL Absolute Nucleated RBC 0.000 (0.0-0.012) X10*3/uL Nucleated RBC % (auto) 0.0 (0.0-0.2) /100WBC Smear Tech's Comments VERIFIED Sodium 138 (135-145) mmol/L Potassium 3.7 (3.3-5.1) mmol/L Chloride 103 (96-108) mmol/L Carbon Dioxide 27 (22-29) mmol/L Anion Gap 12 (12-20) BUN 15 (9-16) mg/dL Creatinine 0.81 (0.5-1.4) mg/dL Estim Creat Clear Calc 61.8 Estimated GFR > 60 Random Glucose 110 (60-115) mg/dL Calcium 9.4 D (8.4-10.2) mg/dL Total Bilirubin 0.6 (0.0-1.0) mg/dL AST 20 (5-31) U/L ALT 21 (0-31) U/L Alkaline Phosphatase 117 (39-117) U/L Troponin I High Sens (<3.5-17.0) ng/L Total Protein 7.7 (6.5-8.0) g/dL Albumin 4.7 (3.5-5.0) g/dL COVID-19 (TONIE) Negative (Negative) COVID-19 Clin Com See Note 04/01/22 Range/Units 20:03 WBC (4.8-10.8) X10*3/uL RBC (4.20-5.50) X10*6/uL Hgb (12.0-16.0) g/dl Hct (37.0-47.0) % MCV (80.0-98.0) fL MCH (27.0-33.0) pg MCHC (31.0-35.0) g/dl RDW (11.0-16.0) % Plt Count (160-400) X10*3/uL MPV (9.4-12.3) fL Immature Gran % (Auto) (0.0-0.4) % Neut % (Auto) (45-73) % Lymph % (Auto) (20-40) % Lares % (Auto) (2-11) % Eos % (Auto) (0-4) % Baso % (Auto) (0-2) % Lymph # (Auto) (1.2-4.9) X10*3/uL Lares # (Auto) (0.1-1.2) X10*3/uL Eos # (Auto) (0.0-0.4) X10*3/uL Baso # (Auto) (0.0-0.2) X10*3/uL Abs Immat Gran (auto) (0.00-0.03) X10*3/uL Absolute Neuts (auto) (2.0-8.3) x10*3/uL Absolute Nucleated RBC (0.0-0.012) X10*3/uL Nucleated RBC % (auto) (0.0-0.2) /100WBC Smear Tech's Comments Sodium (135-145) mmol/L Potassium (3.3-5.1) mmol/L Chloride (96-108) mmol/L Carbon Dioxide (22-29) mmol/L Anion Gap (12-20) BUN (9-16) mg/dL Creatinine (0.5-1.4) mg/dL Estim Creat Clear Calc Estimated GFR Random Glucose (60-115) mg/dL Calcium (8.4-10.2) mg/dL Total Bilirubin (0.0-1.0) mg/dL AST (5-31) U/L ALT (0-31) U/L Alkaline Phosphatase (39-117) U/L Troponin I High Sens < 3.5 (<3.5-17.0) ng/L Total Protein (6.5-8.0) g/dL Albumin (3.5-5.0) g/dL COVID-19 (TONIE) (Negative) COVID-19 Clin Com ECG Data Attestation: I personally reviewed and interpreted this ECG as follows: Interpretation: Rate: 84 Rhythm:? Normal sinus rhythm [place]:? Normal Normal P waves.? Normal NAOMY.?? Normal QRS complex.?? ST T wave :??Nonspecific ST changes. qTC: 446 prior studies:? August 2021 The study has been interpreted contemporaneously by me. Discharge Plan Discharge Clinical Impression: Upper respiratory infection, Chest wall muscle strain Patient Disposition: Home, Self-Care Instructions: Upper Respiratory Infection (ED), Chest Wall Pain (ED) Additional Instructions: Be sure to rest, stay well hydrated drinking plenty of fluids, eat small frequent meals. You may use Tylenol as needed for pain, as we discussed anti-inflammatories such as ibuprofen/Motrin may be helpful for your pain as well, however you stated that these typically give you heartburn. Jnei-poi-oatvzfe cold medications may be helpful as well for symptoms. Please take Mucinex to help decrease the congestion in your chest. Saline nasal spray, humidifier may be helpful for nasal congestion. You may return to the emergency department with any new or worsening symptoms or concerns. Follow-up with your primary care provider in 1-3 days Prescriptions: New guaifenesin 600 mg tablet extended release 12hr 600 mg PO Q12H PRN (Reason: congestion) Qty: 10 0RF No Action hydroxyzine HCl 50 mg tablet 50 mg PO BID PRN (Reason: anxiety) Qty: 14 0RF paroxetine HCl [Paxil] 20 mg tablet 20 mg PO DAILY cromolyn 5.2 mg/spray (4 %) spray,non-aerosol 1 spray intranasal TID hydroxyzine HCl 25 mg tablet 25 - 50 mg PO Q6H PRN (Reason: panic attack) omeprazole 20 mg capsule,delayed release(DR/EC) 20 mg PO DAILY buspirone 7.5 mg tablet 7.5 mg PO BID lisinopril 10 mg tablet 10 mg PO DAILY amlodipine 10 mg tablet 10 mg PO DAILY
--- NOTE | 2022-04-01 19:31 | ECG_ITS ---
Test Reason : DIFFCULTY BREATHING Blood Pressure : / mmHG Vent. Rate : 083 BPM Atrial Rate : 083 BPM P-R Int : 154 ms QRS Dur : 088 ms QT Int : 380 ms P-R-T Axes : 034 006 -23 degrees QTc Int : 446 ms Normal sinus rhythm Nonspecific ST abnormality Abnormal ECG When compared with ECG of 02-SEP-2021 10:33, No significant change was found Referred By: Gladis Plata Electronically Signed By:MARKUS JAIMES
[2022-04-01] MEDS: guaiFENesin LA 600 MG TAB.ER.12H 1200 MG PO (19:42)
[2022-04-01 19:58] LABS: COVID-19 Test Negative (Negative)
[2022-04-01 20:10] LABS: Basophils Percent Auto 1.3 % (0-2); Eosinophils Absolute Auto 0.2 X10*3/uL (0.0-0.4); Eosinophils Percent Auto 6.9 % (0-4); Hematocrit 38.5 % (37.0-47.0); Lymphocytes Percent Auto 42.1 % (20-40); MANUAL DIFF FLAG SCAN; Mean Corpuscular HGB Conc 33.8 g/dl (31.0-35.0); Mean Corpuscular Hemoglobin 27.7 pg (27.0-33.0); Mean Corpuscular Volume 82.1 fL (80.0-98.0); Mean Platelet Volume 9.2 fL (9.4-12.3); Monocytes Absolute Auto 0.4 X10*3/uL (0.1-1.2); Monocytes Percent Auto 18.5 % (2-11); Neutrophils Absolute Auto 0.7 x10*3/uL (2.0-8.3); Neutrophils Percent Auto 31.2 % (45-73); Platelet Count 256 X10*3/uL (160-400); Red Blood Count 4.69 X10*6/uL (4.20-5.50); Red Cell Distribution Width 13.5 % (11.0-16.0); SCAN SMEAR FLAG 1
[2022-04-01 20:28] LABS: Alanine Aminotransferase 21 U/L (0-31); Albumin Level 4.7 g/dL (3.5-5.0); Alkaline Phosphatase 117 U/L (39-117); Anion Gap 12 (12-20); Aspartate Amino Transferase 20 U/L (5-31); Bilirubin Total 0.6 mg/dL (0.0-1.0); Blood Urea Nitrogen 15 mg/dL (9-16); Calcium 9.4 mg/dL (8.4-10.2); Carbon Dioxide 27 mmol/L (22-29); Chloride 103 mmol/L (96-108); Creatinine Clr Calc Pharmacy 61.8; Estimated Glomerular Filt Rate > 60; Glucose Random 110 mg/dL (60-115); Potassium 3.7 mmol/L (3.3-5.1); Sodium 138 mmol/L (135-145); Total Protein 7.7 g/dL (6.5-8.0); White Blood Count 2.3 X10*3/uL (4.8-10.8)
[2022-04-01 20:30] LABS: SLIDE REVIEW VERIFIED
[2022-04-01 20:32] LABS: Troponin-I High Sensitivity < 3.5 ng/L (<3.5-17.0)
== END 2022-04-01 21:11 | disposition home or self-care (01) ==
PROVIDERS: Nurse Practitioner Family; Emergency Provider Internal Medicine; PCP Internal Medicine Geriatric Medicine
DX: S29.011A Strain of muscle and tendon of front wall of thorax, initial encounter (principal); J06.9 Acute upper respiratory infection, unspecified; I10 Essential (primary) hypertension; J45.909 Unspecified asthma, uncomplicated; Z20.822 Contact with and (suspected) exposure to COVID-19; X58.XXXA Exposure to other specified factors, initial encounter; Y93.9 Activity, unspecified; Y92.9 Unspecified place or not applicable; Y99.9 Unspecified external cause status
CPT/HCPCS: 36415; 71046; 80053; 84484; 85025; 87635; 93005; 99283

== ENCOUNTER 2022-04-08 13:23 | Emergency (ER) | payer MEDICAID, SELFPAY ==
--- NOTE | ~2022-04-08 | XR_ITS ---
EXAMINATION: XR CHEST CLINICAL INFORMATION: Shortness of breath and cough COMPARISON: 04/01/2022 TECHNIQUE: 2 views of the chest were obtained. FINDINGS: Patchy right middle lobe and bilateral lower lobe opacities are identified concerning for pneumonia. The upper lungs are clear. The cardiac silhouette is is not significantly enlarged. No pleural effusion or pneumothorax. XR/XR chest 2V IMPRESSION: Bilateral patchy lower lobe opacities and right middle lobe opacity. The findings are concerning for pneumonia in the presence of shortness of breath and cough. Differential diagnosis could include secretions/aspiration. Recommend follow-up chest radiograph to document clearance of these findings.
[2022-04-08 13:32] VITALS: BP 153/89; PULSE 99; RESP 19; TEMP 36.6; O2SAT 99; BMI 29.2
--- NOTE | 2022-04-08 16:33 | ED_ITS ---
HPI - URI/Sore Throat General Chief Complaint: Upper Respiratory Symptoms Stated Complaint: chest pain cough Time Seen by Provider: 04/08/22 16:16 Source: patient Mode of arrival: ambulatory Limitations: no limitations History of Present Illness HPI Narrative: 6-year-old female with a history of hypertension, anemia, asthma, fibromyalgia here with reports of productive cough with clear sputum, body aches, chills, shortness of breath for the last 1 week. Patient tells me she was seen 1 week ago and had a negative chest x-ray and COVID screen. Patient reports she has been taking albuterol p.r.n., Singulair. She reports continued symptoms. No chest pain, leg pain, leg swelling, fever, vomiting or diarrhea. Patient has had 3 COVID vaccinations. She received a flu vaccination last season. She had COVID in September of 2021 Related Data Home Medications Medication Instructions Recorded Confirmed paroxetine HCl 20 mg tablet (Paxil) 20 mg PO DAILY 01/12/21 11/16/21 amlodipine 10 mg tablet 10 mg PO DAILY 11/09/21 11/16/21 buspirone 7.5 mg tablet 7.5 mg PO BID 11/09/21 11/16/21 cromolyn 5.2 mg/spray (4 %) nasal 1 spray intranasal TID 11/09/21 11/16/21 spray hydroxyzine HCl 25 mg tablet 25 - 50 mg PO Q6H PRN panic attack 11/09/21 11/16/21 lisinopril 10 mg tablet 10 mg PO DAILY 11/09/21 11/16/21 omeprazole 20 mg capsule,delayed 20 mg PO DAILY 11/09/21 11/16/21 release Previous Rx's Medication Instructions Recorded hydroxyzine HCl 50 mg tablet 50 mg PO BID PRN anxiety #14 tabs 09/02/21 guaifenesin 600 mg tablet, 600 mg PO Q12H PRN congestion #10 04/01/22 extended release 12 hr tabs benzonatate 200 mg capsule 200 mg PO TID PRN cough #20 caps 04/08/22 doxycycline monohydrate 100 mg 100 mg PO BID 10 days #20 caps 04/08/22 capsule Allergies Allergy/AdvReac Type Severity Reaction Status Date / Time penicillin V Allergy Intermediate rash Verified 11/16/21 10:03 Penicillins Allergy Intermediate SWELLING, Verified 11/16/21 10:03 WELTS NSAIDS (Non-Steroidal AdvReac Heartburn Verified 04/01/22 19:40 Anti-Inflamma Review of Systems Review of Systems: Yes all other systems are reviewed and are negative Constitutional: Constitutional: Reports no additional constitutional complaints, Reports body ache(s), Reports chills, Denies fever(s), Denies headache(s) and Denies weakness Eyes: Eyes: Reports no additional eye complaints and Denies change in vision ENT: Reports system reviewed and no additional complaints, except as documented, Denies dizziness, Denies headache(s), Denies nasal congestion, Denies nasal discharge and Denies neck pain Cardiovascular: Cardiovascular: Reports no additional cardiovascular complaints, Denies chest pain, Denies leg edema and Reports dyspnea Respiratory: Respiratory: Reports no additional respiratory complaints, Reports cough and Reports dyspnea Gastrointestinal: Gastrointestinal: Reports no additional gastrointestinal complaints, Denies abdominal pain, Denies diarrhea, Denies nausea and Denies vomiting Genitourinary: Genitourinary: Reports no additional female genitourinary complaints and Denies urinary incontinence Musculoskeletal: Musculoskeletal: Reports no additional musculoskeletal complaints, Denies back pain, Denies arthralgias, Denies joint swelling, Denies neck pain, Denies numbness and Denies tingling Integumentary/Breasts: Skin/Breast: Reports system reviewed and no additional complaints, except as docu and Denies rash Neurologic: Reports system reviewed and no additional complaints, except as documented, Denies Abnormal speech present, Denies dizziness, Denies headache(s), Denies numbness, Denies tingling and Denies weakness [facility] Past Medical History Attestation statement: The following information was validated with the patient. Source: old records reviewed and nursing notes reviewed Medical History Abdominal pain Surgical History Hx of appendectomy Hx of cholecystectomy Family History Family History Sister History of colon cancer Social History Social History Household Members: None Housing: Apartment Do you presently have visiting nurse or other home services: No Patient Tobacco Use Status: Never used Tobacco Advance Directives: No Advance Directives Information Provided: No service: No Current occupational status: unemployed Physical Exam Vital Signs: Vital Signs: Last Vital Signs Temp 98 F 04/08/22 13:32 Pulse 99 04/08/22 13:32 Resp 19 04/08/22 13:32 BP 153/89 H 04/08/22 13:32 Pulse Ox 99 04/08/22 13:32 BMI result Body Mass Index 29.2 Const: General: cooperative, healthy appearing, comfortable and no acute dist ress Orientation/consciousness: patient oriented x3 Limitations: no limitations HEENT: Head: Yes normal to inspection Ears: hearing grossly normal bilaterally and TM's normal bilaterally General nose exam: Normal external nose present Face and sinus: Yes normal facial exam Mouth: Normal oral and palatal mucosa present Throat: Yes posterior oropharynx normal, Yes tonsils normal and Yes uvula midline Eyes: General: appearance normal, both eyes and all related structures Pupils: Equal, round and reactive pupils present Neck: Neck: Yes normal visual inspection, Yes full ROM, Yes no lymphadenopathy and Yes no meningeal signs Chest: Chest palpation & inspection: normal inspection of the chest Resp: Effort & Inspection: normal respiratory effort Auscultation: clear to auscultation bilaterally Cardio: Rate: regular rate Rhythm: regular rhythm Peripheral pulses: Peripheral pulses 2+ throughout GI: Inspection: Yes normal to inspection Palpation (GI): Soft to palpation and nontender Auscultation: normal bowel sounds Back/Spine/Pelvis: Thoracic/Lumbar Spine: thoracic and lumbar spine normal to inspection Skin: General skin exam: no rashes or lesions noted Neuro: General: patient oriented x3, no meningeal signs, no focal motor deficits and normal sensation to monofilament Cranial nerves: Yes Equal, round and reactive pupils present Cognition (Neuro): normal cognition Speech: No Abnormal speech present Gait exam (Neuro): Normal gait present Motor exam (neuro): 5/5 motor strength present throughout Extrem: General: Yes normal to inspection, Yes no pedal edema and Yes no calf tenderness Course Course Course Narrative: 1715-COVID screen is positive. Chest x-ray is consistent with pneumonia. Patient has no hypoxia, no tachycardia, no tachypnea. She appears well and is speaking full sentences. She has albuterol at home. She has had symptoms for greater than 7 days and so we did discuss COVID treatments however I do not feel likely these would be beneficial for her at this point. We will start her on antibiotic and give her a cough suppressant. Reviewed worrisome signs and symptoms of when to return to the emergency department. Comfortable discharge home. MDM - URI/Sore Throat MDM Narrative Medical decision making narrative: 56-year-old female with a history of asthma here with persistent cough with productive sputum, body aches, chills and some shortness of breath unrelieved with home albuterol and Singulair. Patient tells me she has had symptoms for 1 week. She had a ER visit on April 01 with a negative chest x-ray. She denies smoking history or substance use. No vaping history. Will check chest x-ray, COVID and flu screening. Vitals are stable. -low concern for PE with no tachypnea, no hypoxia, no tachycardia, no clinical findings concerning for DVT Medical Records Attestation: I reviewed the patient's medical records. Lab Data Attestation: I reviewed the patient's lab results. Labs: Lab Results 04/08/22 04/08/22 Range/Units 16:31 16:31 COVID-19 (TONIE) Positive A (Negative) COVID-19 Clin Com See Note Influenza Type A (LORNA) Negative (Negative) Influenza Type B (LORNA) Negative (Negative) Influenza A & B Note See Note Imaging Data Chest x-ray: Attestation: I personally reviewed and interpreted this imaging study as follows: Radiologist's impression: [address] [address] XRay Report Signed Patient: Keren Dugan MR#: [id number] : 1965 Acct:[id number] Age/Sex: 56 / F ADM Date: 04/08/22 Loc: HO.ED Attending Dr: Ordering Physician: Generic ED Physician Date of Service: 04/08/22 Procedure(s): XR chest 2V Accession Number(s): [id number] cc: Generic ED Physician~ EXAMINATION: XR CHEST CLINICAL INFORMATION: Shortness of breath and cough COMPARISON: 04/01/2022 TECHNIQUE: 2 views of the chest were obtained. FINDINGS: Patchy right middle lobe and bilateral lower lobe opacities are identified concerning for pneumonia. The upper lungs are clear. The cardiac silhouette is is not significantly enlarged. No pleural effusion or pneumothorax. XR/XR chest 2V IMPRESSION: Bilateral patchy lower lobe opacities and right middle lobe opacity. The findings are concerning for pneumonia in the presence of shortness of breath and cough. Differential diagnosis could include secretions/aspiration. ? Recommend follow-up chest radiograph to document clearance of these findings. Discharge Plan Discharge Clinical Impression: Pneumonia, COVID-19 Patient Disposition: Home, Self-Care Instructions: Pneumonia (ED), COVID-19 (Coronavirus Disease 2019) (ED) Additional Instructions: flu testing are negative COVID is positive Increase fluids, rest Return for increasing shortness of breath, chest pain, fever, oxygen levels less than 90% Prescriptions: New doxycycline monohydrate 100 mg capsule 100 mg PO BID 10 Days Qty: 20 0RF benzonatate 200 mg capsule 200 mg PO TID PRN (Reason: cough) Qty: 20 0RF No Action hydroxyzine HCl 50 mg tablet 50 mg PO BID PRN (Reason: anxiety) Qty: 14 0RF guaifenesin 600 mg tablet extended release 12hr 600 mg PO Q12H PRN (Reason: congestion) Qty: 10 0RF paroxetine HCl [Paxil] 20 mg tablet 20 mg PO DAILY cromolyn 5.2 mg/spray (4 %) spray,non-aerosol 1 spray intranasal TID hydroxyzine HCl 25 mg tablet 25 - 50 mg PO Q6H PRN (Reason: panic attack) omeprazole 20 mg capsule,delayed release(DR/EC) 20 mg PO DAILY buspirone 7.5 mg tablet 7.5 mg PO BID lisinopril 10 mg tablet 10 mg PO DAILY amlodipine 10 mg tablet 10 mg PO DAILY Referrals: Name,MD Armando [Primary Care Provider] - 1 week (as needed) Interventions: ED Discharge Assessment Last Done: 04/08/22 18:06 Discharge Date/Time: 04/08/22 18:07
[2022-04-08 16:51] LABS: COVID-19 Test Positive (Negative); IDNOW Serial# 16C4AD1C
[2022-04-08 16:58] LABS: Influenza A Negative (Negative); Influenza B2 Negative (Negative)
== END 2022-04-08 18:07 | disposition home or self-care (01) ==
PROVIDERS: Nurse Practitioner Family; Emergency Provider Emergency Medicine; PCP Internal Medicine Geriatric Medicine
DX: U07.1 COVID-19 (principal); R06.02 Shortness of breath; J12.82 Pneumonia due to coronavirus disease 2019; R07.89 Other chest pain; I10 Essential (primary) hypertension; Z79.899 Other long term (current) drug therapy
CPT/HCPCS: 71046; 87502; 87635; 99282; 99283

== ENCOUNTER 2022-04-19 11:42 | Emergency (ER) | payer MEDICAID, SELFPAY ==
--- NOTE | ~2022-04-19 | CT_ITS ---
EXAMINATION: CT BRAIN AND CHEST X-RAY CLINICAL INFORMATION: Left facial numbness and whole-body weakness. COMPARISON: None TECHNIQUE: Chest one view. 5 mm thin axial and reformatted 2 mm thin sagittal and coronal images of brain were obtained without contrast. DLP 755 FINDINGS: Brain: There is no acute intra-axial, extra-axial bleed, masses, collection or midline shift. There is no acute infarction in evolution are edema. The kwok to white matter difference is maintained normal. The lateral ventricles are symmetrical in size and configuration without enlargement. Bone windows reveal no calvarial abnormality. There is mild mucoperiosteal thickening left maxillary, right frontal and bilateral ethmoid sinuses. The mastoid air cells are well-aerated. There is no no scalp soft tissue abnormality. CHEST: The lungs are well-expanded and clear. The heart size and pulmonary vascularity is normal. No gross bony abnormality seen. CT/CT head/brain wo con IMPRESSION: No acute intracranial process seen. Chronic left maxillary, right frontal and bilateral ethmoid sinus inflammatory changes. Unremarkable chest x-ray.
--- NOTE | 2022-04-19 11:55 | ECG_ITS ---
Test Reason : chest pressure/weakness Blood Pressure : / mmHG Vent. Rate : 085 BPM Atrial Rate : 085 BPM P-R Int : 156 ms QRS Dur : 082 ms QT Int : 358 ms P-R-T Axes : 056 010 -16 degrees QTc Int : 426 ms Normal sinus rhythm Normal ECG When compared with ECG of 01-APR-2022 19:42, No significant change was found Referred By: Generic ED Physician Electronically Signed By:MARKUS JAIMES
[2022-04-19 12:04] VITALS: BP 141/84; BP 152/82; PULSE 89; RESP 18; TEMP 37; O2SAT 97; O2SAT 98; BMI 31.1
[2022-04-19 12:51] LABS: MANUAL DIFF FLAG NO
[2022-04-19 12:52] LABS: Basophils Absolute Auto 0.1 X10*3/uL (0.0-0.2); Basophils Percent Auto 1.3 % (0-2); Eosinophils Absolute Auto 0.1 X10*3/uL (0.0-0.4); Eosinophils Percent Auto 1.9 % (0-4); Hematocrit 40.5 % (37.0-47.0); Hemoglobin 13.7 g/dl (12.0-16.0); Imm Gran Abs Auto 0.01 X10*3/uL (0.00-0.03); Imm Gran Pct Auto 0.3 % (0.0-0.4); Lymphocytes Absolute Auto 1.4 X10*3/uL (1.2-4.9); Lymphocytes Percent Auto 37.5 % (20-40); Mean Corpuscular HGB Conc 33.8 g/dl (31.0-35.0); Mean Corpuscular Hemoglobin 27.5 pg (27.0-33.0); Mean Corpuscular Volume 81.3 fL (80.0-98.0); Monocytes Absolute Auto 0.3 X10*3/uL (0.1-1.2); Monocytes Percent Auto 7.8 % (2-11); Neutrophils Absolute Auto 1.9 x10*3/uL (2.0-8.3); Neutrophils Percent Auto 51.2 % (45-73); Platelet Count 389 X10*3/uL (160-400); Red Blood Count 4.98 X10*6/uL (4.20-5.50); Red Cell Distribution Width 13.4 % (11.0-16.0); White Blood Count 3.7 X10*3/uL (4.8-10.8)
--- NOTE | 2022-04-19 12:57 | ED.GENADULT ---
HPI - General Adult General Chief complaint: Weakness Stated complaint: LEFT SIDE NUMBNESS ON THE HEAD, ANXIETY Time Seen by Provider: 04/19/22 12:15 Source: patient Mode of arrival: ambulatory History of Present Illness HPI narrative: 56-year-old female with a past medical history of HTN, anemia, asthma, fibromyalgia, COVID-19 positive on 04/08 presenting to the ED complaining of generalized weakness/fatigue and left shoulder heaviness radiating down LUE since last night. Reports upper chest heaviness with associated intermittent paresthesias in fingers/ toes and intermittent left-sided facial numbness. Also admits to mild headache and acute on chronic blurry vision. Denies fever, nausea, vomiting, abdominal pain, lightheadedness/dizziness, focal weakness, SOB, pedal edema Onset (ago): hour(s) Related Data Home Medications Medication Instructions Recorded Confirmed paroxetine HCl 20 mg tablet (Paxil) 20 mg PO DAILY 01/12/21 11/16/21 amlodipine 10 mg tablet 10 mg PO DAILY 11/09/21 11/16/21 buspirone 7.5 mg tablet 7.5 mg PO BID 11/09/21 11/16/21 cromolyn 5.2 mg/spray (4 %) nasal 1 spray intranasal TID 11/09/21 11/16/21 spray hydroxyzine HCl 25 mg tablet 25 - 50 mg PO Q6H PRN panic attack 11/09/21 11/16/21 lisinopril 10 mg tablet 10 mg PO DAILY 11/09/21 11/16/21 omeprazole 20 mg capsule,delayed 20 mg PO DAILY 11/09/21 11/16/21 release Previous Rx's Medication Instructions Recorded hydroxyzine HCl 50 mg tablet 50 mg PO BID PRN anxiety #14 tabs 09/02/21 guaifenesin 600 mg tablet, 600 mg PO Q12H PRN congestion #10 04/01/22 extended release 12 hr tabs benzonatate 200 mg capsule 200 mg PO TID PRN cough #20 caps 04/08/22 doxycycline monohydrate 100 mg 100 mg PO BID 10 days #20 caps 04/08/22 capsule Allergies Allergy/AdvReac Type Severity Reaction Status Date / Time penicillin V Allergy Intermediate rash Verified 11/16/21 10:03 Penicillins Allergy Intermediate SWELLING, Verified 11/16/21 10:03 WELTS NSAIDS (Non-Steroidal AdvReac Heartburn Verified 04/01/22 19:40 Anti-Inflamma Review of Systems Review of Systems: Constitutional: No Fever, + Chills, No Night Sweats, + Fatigue, No Malaise ENT/Mouth: No Ear Pain, No Nasal Congestion, No Hoarseness, No sore throat, No Rhinorrhea, No Swallowing Difficulty Eyes: No Eye Pain, No Swelling, No Redness,+acute on chronic blurry vision Cardiovascular: No Chest Pain, No SOB, No Dyspnea on Exertion, No Orthopnea, No Edema, No Palpitations Respiratory: No Cough, No Sputum, No Dyspnea Gastrointestinal: No Nausea, No Vomiting, No Diarrhea, No Constipation, No Abdominal pain Genitourinary: No Dysuria, No Urinary Frequency, No Hematuria, No Urinary Incontinence/retention, No Flank Pain Musculoskeletal: No joint pain, No Myalgias, No Joint Swelling Skin: No Skin Lesions, No rash Neuro: + Weakness, + Numbness, + Paresthesias, No Loss of Consciousness, No Dizziness, N+o Headache Psych: + Anxiety/Panic Yes all other systems are reviewed and are negative Neurologic: Denies Abnormal speech present [facility] Past Medical History Attestation statement: The following information was validated with the patient. Medical History Abdominal pain Surgical History Hx of appendectomy Hx of cholecystectomy Family History Family History Sister History of colon cancer Social History Social History Household Members: None Housing: Apartment Do you presently have visiting nurse or other home services: No Patient Tobacco Use Status: Never used Tobacco Advance Directives: No Advance Directives Information Provided: Yes service: No Current occupational status: unemployed Physical Exam ED Vital Signs: Vital Signs - 24 hr 04/19/22 12:04 Temperature 98.6 F Pulse Rate 89 Respiratory Rate 18 Blood Pressure 152/82 H Pulse Oximetry 98 Oxygen Delivery Method Room Air BMI result Body Mass Index 31.1 Const General: cooperative, healthy appearing and no acute distress Orientation/consciousness: patient oriented x3 Limitations: no limitations HENMT Head: Yes normal to inspection and Yes atraumatic Ears: hearing grossly normal bilaterally General nose exam: Normal external nose present Face and sinus: Yes normal facial exam Eyes General: appearance normal, both eyes and all related structures Pupils: Equal, round and reactive pupils present EOM: EOMs intact bilaterally Neck Other: No midline cervical spinous tenderness Neck: Yes normal visual inspection and Yes no meningeal signs Chest Chest palpation & inspection: normal inspection of the chest, no crepitus and tenderness (Left superior anterior chest wall) Resp Effort & Inspection: normal respiratory effort and no respiratory distress Auscultation: clear to auscultation bilaterally, no crackles, no rales, no rhonchi and no wheezes Cardio Rate: regular rate Heart sounds: S1 normal heart sound present and S2 normal heart sound present Peripheral pulses: Peripheral pulses 2+ throughout GI Inspection: Yes normal to inspection Palpation (GI): Soft to palpation, nontender, no guarding and not rigid General: Yes no CVA tenderness Back/Spine/Pelvis Back: no CVA tenderness Skin Rashes: no rashes Wounds: no wounds Neuro Other: Left side of face reportedly feels different than right side to light touch General: patient oriented x3, tone normal, moves all extremities, no meningeal signs, no focal motor deficits and CN's II-XI intact bilaterally Cranial nerves: Yes CN's II-XII intact bilaterally, Yes Equal, round and reactive pupils present, Yes Bilaterally intact EOM present, Yes Normal facial strength present and Yes Midline tongue present Cognition (Neuro): normal cognition Speech: No Abnormal speech present Motor exam (neuro): 5/5 motor strength present throughout Extrem General: Yes normal to inspection, Yes full ROM, Yes no pedal edema and Yes no calf tenderness Course Course Course Narrative: -1400--chronic leukopenia. Alk-phos mildly elevated, labs otherwise unremarkable including negative troponin CT head/brain wo con IMPRESSION: No acute intracranial process seen. ? Chronic left maxillary, right frontal and bilateral ethmoid sinus inflammatory changes. ? XR chest 1V IMPRESSION: Unremarkable chest x-ray. > results discussed with patient including worrisome signs and symptoms and strict return precautions and close follow-up with PCP. She verbalized understanding and feels safe for discharge home at this time Medical Decision Making MDM Narrative Medical decision making narrative: 56-year-old female with a past medical history of HTN, anemia, asthma, fibromyalgia, COVID-19 positive on 04/08 presenting to the ED complaining of generalized weakness/fatigue and left shoulder heaviness radiating down LUE since last night. Reports upper chest heaviness with associated intermittent paresthesias in fingers/ toes and intermittent left-sided facial numbness. On exam vital signs stable, NAD, nontoxic appearing, no focal neuro deficits, strength intact throughout, sensation different to left side of face to light touch, lungs CTA/no pedal edema. Concern for atypical ACS vs metabolic abnormalities vs continued symptoms of COVID-19. Symptoms atypical for PE/TIA or CVA. No evidence of Rodriguez's palsy at this time Plan: EKG, labs, CXR, head CT Medical Records Medical records reviewed: Yes I reviewed the patient's medical records. Lab Data Lab results reviewed: Yes I reviewed the patient's lab results. Result diagrams: 04/19/22 12:46 04/19/22 12:46 Labs: Lab Results 04/19/22 04/19/22 04/19/22 Range/Units 12:46 12:46 12:46 WBC 3.7 L (4.8-10.8) X10*3/uL RBC 4.98 (4.20-5.50) X10*6/uL Hgb 13.7 (12.0-16.0) g/dl Hct 40.5 (37.0-47.0) % MCV 81.3 (80.0-98.0) fL MCH 27.5 (27.0-33.0) pg MCHC 33.8 (31.0-35.0) g/dl RDW 13.4 (11.0-16.0) % Plt Count 389 D (160-400) X10*3/uL MPV 9.0 L (9.4-12.3) fL Immature Gran % (Auto) 0.3 (0.0-0.4) % Neut % (Auto) 51.2 (45-73) % Lymph % (Auto) 37.5 (20-40) % [place] % (Auto) 7.8 (2-11) % Eos % (Auto) 1.9 (0-4) % Baso % (Auto) 1.3 (0-2) % Lymph # (Auto) 1.4 (1.2-4.9) X10*3/uL [place] # (Auto) 0.3 (0.1-1.2) X10*3/uL Eos # (Auto) 0.1 (0.0-0.4) X10*3/uL Baso # (Auto) 0.1 (0.0-0.2) X10*3/uL Abs Immat Gran (auto) 0.01 (0.00-0.03) X10*3/uL Absolute Neuts (auto) 1.9 L (2.0-8.3) x10*3/uL Absolute Nucleated RBC 0.000 (0.0-0.012) X10*3/uL Nucleated RBC % (auto) 0.0 (0.0-0.2) /100WBC Sodium 137 (135-145) mmol/L Potassium 4.2 (3.3-5.1) mmol/L Chloride 102 (96-108) mmol/L Carbon Dioxide 27 (22-29) mmol/L Anion Gap 12 (12-20) BUN 15 (9-16) mg/dL Creatinine 0.78 (0.5-1.4) mg/dL Estim Creat Clear Calc 66.3 Estimated GFR > 60 Random Glucose 105 (60-115) mg/dL Calcium 10.1 D (8.4-10.2) mg/dL Magnesium 1.9 (1.6-2.6) mg/dL Total Bilirubin 0.6 (0.0-1.0) mg/dL Direct Bilirubin 0.3 (0.0-0.5) mg/dL AST 22 (5-31) U/L ALT 21 (0-31) U/L Alkaline Phosphatase 141 H D (39-117) U/L Troponin I High Sens < 3.5 (<3.5-17.0) ng/L Total Protein 8.4 H (6.5-8.0) g/dL Albumin 4.9 (3.5-5.0) g/dL Discharge Plan Discharge Clinical Impression: Generalized weakness, Atypical chest pain Patient Disposition: Home, Self-Care Instructions: Chest Pain (ED), Weakness (ED) Additional Instructions: Your blood work was reassuring today in the emergency department. Your head CT and chest x-ray were unremarkable It is very important that he stay hydrated at home, and place follow up with her PCP If symptoms persist or worsen, you have constant symptoms, chest pain, shortness breath or fever please return to the emergency department Prescriptions: No Action hydroxyzine HCl 50 mg tablet 50 mg PO BID PRN (Reason: anxiety) Qty: 14 0RF guaifenesin 600 mg tablet extended release 12hr 600 mg PO Q12H PRN (Reason: congestion) Qty: 10 0RF doxycycline monohydrate 100 mg capsule 100 mg PO BID 10 Days Qty: 20 0RF benzonatate 200 mg capsule 200 mg PO TID PRN (Reason: cough) Qty: 20 0RF paroxetine HCl [Paxil] 20 mg tablet 20 mg PO DAILY cromolyn 5.2 mg/spray (4 %) spray,non-aerosol 1 spray intranasal TID hydroxyzine HCl 25 mg tablet 25 - 50 mg PO Q6H PRN (Reason: panic attack) omeprazole 20 mg capsule,delayed release(DR/EC) 20 mg PO DAILY buspirone 7.5 mg tablet 7.5 mg PO BID lisinopril 10 mg tablet 10 mg PO DAILY amlodipine 10 mg tablet 10 mg PO DAILY Referrals: Name,MD Armando [Primary Care Provider] - 2 days
[2022-04-19 13:07] LABS: Alanine Aminotransferase 21 U/L (0-31); Albumin Level 4.9 g/dL (3.5-5.0); Alkaline Phosphatase 141 U/L (39-117); Anion Gap 12 (12-20); Aspartate Amino Transferase 22 U/L (5-31); Bilirubin Direct 0.3 mg/dL (0.0-0.5); Bilirubin Total 0.6 mg/dL (0.0-1.0); Blood Urea Nitrogen 15 mg/dL (9-16); Calcium 10.1 mg/dL (8.4-10.2); Carbon Dioxide 27 mmol/L (22-29); Chloride 102 mmol/L (96-108); Creatinine Clr Calc Pharmacy 66.3; Estimated Glomerular Filt Rate > 60; Glucose Random 105 mg/dL (60-115); Magnesium 1.9 mg/dL (1.6-2.6); Potassium 4.2 mmol/L (3.3-5.1); Sodium 137 mmol/L (135-145); Total Protein 8.4 g/dL (6.5-8.0)
[2022-04-19 13:13] LABS: Troponin-I High Sensitivity < 3.5 ng/L (<3.5-17.0)
== END 2022-04-19 14:40 | disposition home or self-care (01) ==
PROVIDERS: Physician Assistant; Emergency Provider Emergency Medicine; PCP Internal Medicine Geriatric Medicine
DX: R07.89 Other chest pain (principal); R53.1 Weakness; R20.2 Paresthesia of skin; R51.9 Headache, unspecified; H53.8 Other visual disturbances; I10 Essential (primary) hypertension; D64.9 Anemia, unspecified; Z86.16 Personal history of COVID-19
CPT/HCPCS: 36415; 70450; 71045; 80048; 80076; 83735; 84484; 85025; 93005; 99283; 99284

== ENCOUNTER 2022-05-30 08:01 | Emergency (ER) | payer MEDICAID, SELFPAY ==
--- NOTE | 2022-05-30 | ECG_ITS ---
Test Reason : cp to back pain Blood Pressure : / mmHG Vent. Rate : 094 BPM Atrial Rate : 094 BPM P-R Int : 142 ms QRS Dur : 074 ms QT Int : 360 ms P-R-T Axes : 031 012 -24 degrees QTc Int : 450 ms Normal sinus rhythm Nonspecific T wave abnormality Abnormal ECG When compared with ECG of 19-APR-2022 11:55, No significant change was found Referred By: Generic ED Physician Electronically Signed By:MARKUS JAIMES
--- NOTE | ~2022-05-30 | CT_ITS ---
EXAMINATION: CT ANGIOGRAM OF THE CHEST WITH AND WITHOUT CONTRAST (CT PULMONARY ANGIOGRAM FOR PE) CLINICAL INFORMATION: Reason for Exam elevated D dimer. PE? COMPARISON: Previous chest x-ray earlier the same day TECHNIQUE: Prior to contrast administration, noncontrast localization images were obtained. Subsequently, multidetector volumetric imaging was performed from the thoracic inlet to below the diaphragms following the administration of 65 mL Omnipaque 350 intravenous contrast. No contrast reaction reported Sagittal, coronal, and MIP oblique sagittal reformatted images were obtained on the CT workstation, uploaded to PACS, and reviewed. This CT examination was performed using dose optimization techniques as appropriate, variously including the following: *Automated exposure control *Adjustment of mA and/or kV according to patient size (this includes techniques or standardized protocols for targeted exams where dose is matched to indication/reason for exam; i.e. extremities or head) *Use of iterative reconstruction technique Total exam dose-length product 251 mGy-cm FINDINGS: QUALITY OF STUDY/CONTRAST BOLUS: Satisfactory. PULMONARY ARTERIES: No central or segmental pulmonary emboli. There is motion artifact however the main and proximal left pulmonary arteries may be enlarged. THORACIC AORTA: No aneurysm or dissection. LUNG: No focal consolidation, nodules or masses. PLEURA: No pleural effusion or pneumothorax. MEDIASTINUM: Normal heart size. No pericardial effusion. No hilar or mediastinal lymphadenopathy. No evidence of septal bowing or right heart strain. CHEST WALL/AXILLA: No axillary or internal mammary lymphadenopathy. OSSEOUS STRUCTURES: No acute or suspicious osseous abnormality. There are degenerative changes of the spine. UPPER ABDOMEN: Unremarkable. No reflux of contrast into the hepatic veins to suggest elevated right heart pressures. CT/CT angio chest PE protocol IMPRESSION: No evidence of pulmonary embolism. VTE: negative
--- NOTE | ~2022-05-30 | XR_ITS ---
EXAMINATION: XR CHEST CLINICAL INFORMATION: Chest pain. COMPARISON: Chest done on 04/19/2022. TECHNIQUE: Frontal view of the chest was obtained. FINDINGS: No significant abnormality is noted involving the heart, lungs, mediastinum, bony thorax or soft tissues. XR/XR chest 1V IMPRESSION: Unremarkable examination. No significant change since 04/19/2022.
[2022-05-30 08:46] VITALS: BP 152/91; PULSE 80; RESP 16; TEMP 36.3; O2SAT 99; BMI 29.7
[2022-05-30 09:14] LABS: COVID-19 Test Negative (Negative); IDNOW Serial# 16C4AD1C
--- NOTE | 2022-05-30 09:40 | ED_ITS ---
HPI - General Adult General Chief complaint: Upper Respiratory Symptoms Stated complaint: Chest burning radiating to back Time Seen by Provider: 05/30/22 08:13 Source: patient Mode of arrival: ambulatory Limitations: no limitations History of Present Illness HPI narrative: 56-year-old female with history of hypertension, anemia and fibromyalgia with COVID diagnosis this past May 02 presents to the ED for 3 days of dry cough with chest pain radiating to right upper back. Patient states pain is worse when coughing and range of motion with slight pleurisy. Patient denies any leg swelling, calf pain, or coughing up blood. Patient also admits to doing heavy lifting of garbage 3 days ago which may have contributed to right upper back pain. Patient describes chest pain as sharp. Patient describes any ripping sensation of chest to back. Related Data Home Medications Medication Instructions Recorded Confirmed paroxetine HCl 20 mg tablet (Paxil) 20 mg PO DAILY 01/12/21 11/16/21 amlodipine 10 mg tablet 10 mg PO DAILY 11/09/21 11/16/21 buspirone 7.5 mg tablet 7.5 mg PO BID 11/09/21 11/16/21 cromolyn 5.2 mg/spray (4 %) nasal 1 spray intranasal TID 11/09/21 11/16/21 spray hydroxyzine HCl 25 mg tablet 25 - 50 mg PO Q6H PRN panic attack 11/09/21 11/16/21 lisinopril 10 mg tablet 10 mg PO DAILY 11/09/21 11/16/21 omeprazole 20 mg capsule,delayed 20 mg PO DAILY 11/09/21 11/16/21 release Previous Rx's Medication Instructions Recorded hydroxyzine HCl 50 mg tablet 50 mg PO BID PRN anxiety #14 tabs 09/02/21 guaifenesin 600 mg tablet, 600 mg PO Q12H PRN congestion #10 04/01/22 extended release 12 hr tabs benzonatate 200 mg capsule 200 mg PO TID PRN cough #20 caps 04/08/22 doxycycline monohydrate 100 mg 100 mg PO BID 10 days #20 caps 04/08/22 capsule Allergies Allergy/AdvReac Type Severity Reaction Status Date / Time penicillin V Allergy Intermediate rash Verified 11/16/21 10:03 Penicillins Allergy Intermediate SWELLING, Verified 11/16/21 10:03 WELTS NSAIDS (Non-Steroidal AdvReac Heartburn Verified 04/01/22 19:40 Anti-Inflamma Review of Systems Review of Systems: Dry cough, bilateral ear pain, chest pain, and right upper back pain Yes all other systems are reviewed and are negative [facility] Past Medical History Medical History Abdominal pain Surgical History Hx of appendectomy Hx of cholecystectomy Family History Family History Sister History of colon cancer Social History Social History Household Members: None Housing: Apartment Do you presently have visiting nurse or other home services: No Patient Tobacco Use Status: Never used Tobacco Advance Directives: No Advance Directives Information Provided: No service: No Current occupational status: unemployed Physical Exam ED Vital Signs: Vital Signs - 24 hr 05/30/22 08:46 05/30/22 13:47 Temperature 97.4 F 97.8 F Pulse Rate 80 75 Respiratory Rate 16 16 Blood Pressure 152/91 H 132/83 Pulse Oximetry 99 99 Oxygen Delivery Method Room Air Room Air BMI result Body Mass Index 29.7 Const General: cooperative, healthy appearing, comfortable, no acute distress, well developed, alert, awake and Physically active Orientation/consciousness: oriented to time and patient oriented x3 [facility] Head: Yes normal to inspection, Yes No palpable skull fracture present, Yes normocephalic, Yes atraumatic and No abrasion Ears: hearing grossly normal bilaterally, external ears normal, TM's normal bilaterally, TM normal on the right, TM normal on the left, EAC's normal, mastoids normal and no periauricular adenopathy Throat: Yes posterior oropharynx normal, Yes tonsils normal and Yes uvula midline Eyes General: appearance normal, both eyes and all related structures Neck Neck: Yes normal visual inspection, Yes full ROM, Yes no lymphadenopathy, Yes no meningeal signs, Yes trachea midline, Yes supple, No anterior neck swelling and No tender Chest Other: Negative for rash on chest wall/thorax Chest palpation & inspection: normal inspection of the chest and normal palpation of entire chest wall Chest/axillae images: 1. positive for chest wall tenderness on palpation. Resp Effort & Inspection: normal respiratory effort and able to speak in complete sentences Auscultation: clear to auscultation bilaterally Cardio Jugular venous distension: no JVD Heart sounds: S1 normal heart sound present and S2 normal heart sound present GI Inspection: Yes normal to inspection and No abdominal wall ecchymosis Palpation (GI): Soft to palpation, not firm, nontender, no guarding and not rigid General: No CVA tenderness and Yes no CVA tenderness Back/Spine/Pelvis Back: no CVA tenderness, No CVA tenderness and No back tenderness Back/spine/pelvis image: 1. tenderness on palpation Skin General skin exam: no rashes or lesions noted and elasticity normal Neuro General: oriented to time, patient oriented x3, gait normal and no meningeal signs Cranial nerves: Yes CN's II-XII intact bilaterally Extrem General: Yes normal to inspection and Yes full ROM Psych Appearance: grossly normal, well kempt and not disheveled Course Course Course Narrative: Due to age, risk factor of high blood pressure, right upper back/flank tenderness and slight pleurisy will do labs cardiac evaluation including D- dimer. Initial EKG negative STEMI. COVID swab is negative. Chest x-ray ordered Reevaluation(s) Reevaluation #1: Due to patient stating pleurisy and right upper flank pain/back pain patient was sent for chest CT to rule out PE due to elevated D-dimer. Chest CT came back negative for PE. Chest x-ray negative for pneumonia. EKG negative for STEMI. Troponin negative after having symptoms for 3 days. BNP negative. Chest x-ray normal. Diagnosis costochondritis. URI. Atypical chest Time: 14:09 Medical Decision Making [facility] Narrative Medical decision making narrative: Costochondritis. URI. Atypical chest pain Lab Data Result diagrams: 05/30/22 10:17 05/30/22 10:18 Labs: Lab Results 05/30/22 05/30/22 05/30/22 Range/Units 08:50 10:17 10:17 WBC 3.8 L (4.8-10.8) X10*3/uL RBC 4.73 (4.20-5.50) X10*6/uL Hgb 13.1 (12.0-16.0) g/dl Hct 38.6 (37.0-47.0) % MCV 81.6 (80.0-98.0) fL MCH 27.7 (27.0-33.0) pg MCHC 33.9 (31.0-35.0) g/dl RDW 13.3 (11.0-16.0) % Plt Count 249 D (160-400) X10*3/uL MPV 9.2 L (9.4-12.3) fL Immature Gran % (Auto) 0.3 (0.0-0.4) % Neut % (Auto) 54.6 (45-73) % Lymph % (Auto) 33.1 (20-40) % [place] % (Auto) 7.3 (2-11) % Eos % (Auto) 3.9 (0-4) % Baso % (Auto) 0.8 (0-2) % Lymph # (Auto) 1.3 (1.2-4.9) X10*3/uL [place] # (Auto) 0.3 (0.1-1.2) X10*3/uL Eos # (Auto) 0.2 (0.0-0.4) X10*3/uL Baso # (Auto) 0.0 (0.0-0.2) X10*3/uL Abs Immat Gran (auto) 0.01 (0.00-0.03) X10*3/uL Absolute Neuts (auto) 2.1 (2.0-8.3) x10*3/uL Absolute Nucleated RBC 0.000 (0.0-0.012) X10*3/uL Nucleated RBC % (auto) 0.0 (0.0-0.2) /100WBC PT (10.0-13.1) SEC INR (0.9-1.1) APTT (26.0-36.4) SEC D-Dimer High Sensitivty NG/ML Sodium (135-145) mmol/L Potassium (3.3-5.1) mmol/L Chloride (96-108) mmol/L Carbon Dioxide (22-29) mmol/L Anion Gap (12-20) BUN (9-16) mg/dL Creatinine (0.5-1.4) mg/dL Estim Creat Clear Calc Estimated GFR Random Glucose (60-115) mg/dL Calcium (8.4-10.2) mg/dL Total Bilirubin (0.0-1.0) mg/dL AST (5-31) U/L ALT (0-31) U/L Alkaline Phosphatase (39-117) U/L Troponin I High Sens < 3.5 (<3.5-17.0) ng/L B-Natriuretic Peptide 25 (<100) pg/mL Total Protein (6.5-8.0) g/dL Albumin (3.5-5.0) g/dL COVID-19 (TONIE) Negative (Negative) COVID-19 Clin Com See Note 05/30/22 05/30/22 Range/Units 10:18 10:18 WBC (4.8-10.8) X10*3/uL RBC (4.20-5.50) X10*6/uL Hgb (12.0-16.0) g/dl Hct (37.0-47.0) % MCV (80.0-98.0) fL MCH (27.0-33.0) pg MCHC (31.0-35.0) g/dl RDW (11.0-16.0) % Plt Count (160-400) X10*3/uL MPV (9.4-12.3) fL Immature Gran % (Auto) (0.0-0.4) % Neut % (Auto) (45-73) % Lymph % (Auto) (20-40) % [place] % (Auto) (2-11) % Eos % (Auto) (0-4) % Baso % (Auto) (0-2) % Lymph # (Auto) (1.2-4.9) X10*3/uL [place] # (Auto) (0.1-1.2) X10*3/uL Eos # (Auto) (0.0-0.4) X10*3/uL Baso # (Auto) (0.0-0.2) X10*3/uL Abs Immat Gran (auto) (0.00-0.03) X10*3/uL Absolute Neuts (auto) (2.0-8.3) x10*3/uL Absolute Nucleated RBC (0.0-0.012) X10*3/uL Nucleated RBC % (auto) (0.0-0.2) /100WBC PT 12.7 (10.0-13.1) SEC INR 1.1 (0.9-1.1) APTT 31.1 (26.0-36.4) SEC D-Dimer High Sensitivty 349 NG/ML Sodium 141 (135-145) mmol/L Potassium 4.7 (3.3-5.1) mmol/L Chloride 103 (96-108) mmol/L Carbon Dioxide 24 (22-29) mmol/L Anion Gap 19 (12-20) BUN 16 (9-16) mg/dL Creatinine 0.77 (0.5-1.4) mg/dL Estim Creat Clear Calc 65.5 Estimated GFR > 60 Random Glucose 93 (60-115) mg/dL Calcium 9.9 (8.4-10.2) mg/dL Total Bilirubin 0.7 (0.0-1.0) mg/dL AST 21 (5-31) U/L ALT 19 (0-31) U/L Alkaline Phosphatase 106 D (39-117) U/L Troponin I High Sens (<3.5-17.0) ng/L B-Natriuretic Peptide (<100) pg/mL Total Protein 8.0 (6.5-8.0) g/dL Albumin 4.9 (3.5-5.0) g/dL COVID-19 (TONIE) (Negative) COVID-19 Clin Com ECG Data Interpretation: Normal sinus rhythm. Ventricular rate 94. Pr interval 142. QRS 74 pr QTC 450. Negative STEMI Discharge Plan Discharge Clinical Impression: URI (upper respiratory infection), Costochondritis, Chest pain, atypical Patient Disposition: Home, Self-Care Instructions: Chest Pain (DC), Costochondritis (ED), Upper Respiratory Infection (ED) Additional Instructions: Your EKG, blood work, x-ray, and chest CT came back negative for heart attack, heart failure, pneumonia, COVID, and pulmonary embolus. You;re labs came back normal. Please follow-up with the primary care provider. Return to the ED immediately for worsening chest pain, shortness of breath on inspiration, coughing up blood, leg swelling, calf pain, dysuria, hematuria, abdominal pain, flank pain, dizziness, or any other concerning symptoms. You can buy [id number] Motrin and Tylenol for pain relief Prescriptions: No Action hydroxyzine HCl 50 mg tablet 50 mg PO BID PRN (Reason: anxiety) Qty: 14 0RF guaifenesin 600 mg tablet extended release 12hr 600 mg PO Q12H PRN (Reason: congestion) Qty: 10 0RF doxycycline monohydrate 100 mg capsule 100 mg PO BID 10 Days Qty: 20 0RF benzonatate 200 mg capsule 200 mg PO TID PRN (Reason: cough) Qty: 20 0RF paroxetine HCl [Paxil] 20 mg tablet 20 mg PO DAILY cromolyn 5.2 mg/spray (4 %) spray,non-aerosol 1 spray intranasal TID hydroxyzine HCl 25 mg tablet 25 - 50 mg PO Q6H PRN (Reason: panic attack) omeprazole 20 mg capsule,delayed release(DR/EC) 20 mg PO DAILY buspirone 7.5 mg tablet 7.5 mg PO BID lisinopril 10 mg tablet 10 mg PO DAILY amlodipine 10 mg tablet 10 mg PO DAILY Stand Alone Forms: Work/School Release Interventions: ED Discharge Assessment Last Done: 05/30/22 14:24 Discharge Date/Time: 05/30/22 14:28 Print Language: Faroese
[2022-05-30 10:26] LABS: MANUAL DIFF FLAG NO
[2022-05-30 10:27] LABS: Basophils Percent Auto 0.8 % (0-2); Eosinophils Absolute Auto 0.2 X10*3/uL (0.0-0.4); Eosinophils Percent Auto 3.9 % (0-4); Hematocrit 38.6 % (37.0-47.0); Hemoglobin 13.1 g/dl (12.0-16.0); Imm Gran Abs Auto 0.01 X10*3/uL (0.00-0.03); Imm Gran Pct Auto 0.3 % (0.0-0.4); Lymphocytes Absolute Auto 1.3 X10*3/uL (1.2-4.9); Lymphocytes Percent Auto 33.1 % (20-40); Mean Corpuscular HGB Conc 33.9 g/dl (31.0-35.0); Mean Corpuscular Hemoglobin 27.7 pg (27.0-33.0); Mean Corpuscular Volume 81.6 fL (80.0-98.0); Mean Platelet Volume 9.2 fL (9.4-12.3); Monocytes Absolute Auto 0.3 X10*3/uL (0.1-1.2); Monocytes Percent Auto 7.3 % (2-11); Neutrophils Absolute Auto 2.1 x10*3/uL (2.0-8.3); Neutrophils Percent Auto 54.6 % (45-73); Platelet Count 249 X10*3/uL (160-400); Red Blood Count 4.73 X10*6/uL (4.20-5.50); Red Cell Distribution Width 13.3 % (11.0-16.0); White Blood Count 3.8 X10*3/uL (4.8-10.8)
[2022-05-30 10:40] LABS: INTERNATIONAL NORM RATIO 1.1 (0.9-1.1); Prothrombin Time 12.7 SEC (10.0-13.1)
[2022-05-30 10:42] LABS: D Dimer High Sensitivity 349 NG/ML; Partial Thromboplastin Time 31.1 SEC (26.0-36.4)
[2022-05-30 10:48] LABS: B Type Natriuretic Peptide 25 pg/mL (<100); Troponin-I High Sensitivity < 3.5 ng/L (<3.5-17.0)
[2022-05-30 10:51] LABS: Alanine Aminotransferase 19 U/L (0-31); Albumin Level 4.9 g/dL (3.5-5.0); Alkaline Phosphatase 106 U/L (39-117); Anion Gap 19 (12-20); Aspartate Amino Transferase 21 U/L (5-31); Bilirubin Total 0.7 mg/dL (0.0-1.0); Blood Urea Nitrogen 16 mg/dL (9-16); Calcium 9.9 mg/dL (8.4-10.2); Carbon Dioxide 24 mmol/L (22-29); Chloride 103 mmol/L (96-108); Creatinine Clr Calc Pharmacy 65.5; Estimated Glomerular Filt Rate > 60; Glucose Random 93 mg/dL (60-115); Potassium 4.7 mmol/L (3.3-5.1); Sodium 141 mmol/L (135-145)
[2022-05-30] MEDS: iohexoL 350 MG/ML 100 ML INFUS..BTL IV (12:12)
[2022-05-30 13:47] VITALS: BP 132/83; PULSE 75; RESP 16; TEMP 36.6; O2SAT 99
== END 2022-05-30 14:28 | disposition home or self-care (01) ==
PROVIDERS: Physician Assistant; Emergency Provider Student in an Organized Health Care Education/Training Program; PCP Internal Medicine Geriatric Medicine
DX: J06.9 Acute upper respiratory infection, unspecified (principal); M94.0 Chondrocostal junction syndrome [Tietze]; R07.89 Other chest pain; Z20.822 Contact with and (suspected) exposure to COVID-19; I10 Essential (primary) hypertension; J45.909 Unspecified asthma, uncomplicated
CPT/HCPCS: 36415; 71045; 71275; 80053; 83880; 84484; 85025; 85379; 85610; 85730; 87635; 93005; 99284; Q9967

== ENCOUNTER 2022-07-20 11:17 | Outpatient (REF) | payer MEDICAID, SELFPAY ==
--- NOTE | ~2022-07-20 | XR_ITS ---
EXAMINATION: XR CHEST 2 VIEWS CLINICAL INFORMATION: Covid-19. COMPARISON: CTA chest and chest radiographs dated 05/30/2022. TECHNIQUE: Frontal and lateral views of the chest were obtained. FINDINGS: The heart, great vessels, pulmonary vasculature and mediastinum are normal. The lungs show no focal infiltrate, effusion or pneumothorax. There is no acute osseous abnormality. There is a mild thoracic dextroscoliosis. XR/XR chest 2V IMPRESSION: No active cardiopulmonary disease.
== END 2022-07-20 11:18 | disposition home or self-care (01) ==
LOC: HO.XRAY 11:17
PROVIDERS: PCP Internal Medicine Geriatric Medicine; Visit Provider Dentist Pediatric Dentistry
DX: U07.1 COVID-19 (principal)
CPT/HCPCS: 71046

== ENCOUNTER 2022-08-23 10:50 | Emergency (ER) | payer MEDICAID, SELFPAY ==
--- NOTE | ~2022-08-23 | CT_ITS ---
EXAMINATION: CT ABDOMEN AND PELVIS WITHOUT CONTRAST CLINICAL INFORMATION: Abdominal pain, rule out bowel obstruction COMPARISON: 11/07/2021 TECHNIQUE: Multidetector volumetric imaging was performed from the superior aspect of the liver through the pubic symphysis. Sagittal and coronal reformatted images were obtained on the technologist's workstation. This CT examination was performed using dose optimization techniques as appropriate, variously including the following: *Automated exposure control *Adjustment of mA and/or kV according to patient size (this includes techniques or standardized protocols for targeted exams where dose is matched to indication/reason for exam; i.e. extremities or head) *Use of iterative reconstruction technique DLP: 540 mGy-cm FINDINGS: LUNG BASES: The visualized lung bases are unremarkable. LIVER, GALLBLADDER, AND BILIARY TREE: The liver is normal in size, shape, and attenuation. Redemonstrated small cyst in the posterior right hepatic lobe. No biliary ductal dilatation is present. The gallbladder is not visualized. PANCREAS: Unremarkable. SPLEEN: Unremarkable. ADRENAL GLANDS: Unremarkable. KIDNEYS AND URETERS: The kidneys are normal in size, shape, and attenuation. No hydronephrosis, hydroureter, or calculi seen. No perinephric stranding. BLADDER: Unremarkable. GASTROINTESTINAL TRACT: Bowel gas pattern is nonobstructive. Small bowel suture line in the central abdomen anteriorly. Colon is distended and contains a moderate to large amount of stool. No significant colonic wall thickening is seen. No free fluid or free air is seen. ABDOMINAL WALL: No significant hernia is appreciated. LYMPH NODES: No lymphadenopathy is seen, though assessment is limited in the absence of intravenous contrast. VASCULAR: Mild scattered atherosclerotic calcifications. PELVIC VISCERA: Unremarkable. OSSEOUS STRUCTURES: There is prominent facet arthropathy of the lower lumbar spine. CT/CT abdomen pelvis wo IV con IMPRESSION: Moderate to large amount of stool and gas throughout the colon. No evidence of bowel obstruction.
[2022-08-23 11:46] VITALS: BP 150/93; PULSE 83; RESP 18; TEMP 36.8; O2SAT 99; BMI 29.9
[2022-08-23 13:14] LABS: MANUAL DIFF FLAG NO
[2022-08-23 13:18] LABS: Basophils Absolute Auto 0.1 X10*3/uL (0.0-0.2); Basophils Percent Auto 1.6 % (0-2); Eosinophils Absolute Auto 0.1 X10*3/uL (0.0-0.4); Eosinophils Percent Auto 2.9 % (0-4); Hemoglobin 13.8 g/dl (12.0-16.0); Lymphocytes Absolute Auto 1.2 X10*3/uL (1.2-4.9); Lymphocytes Percent Auto 38.4 % (20-40); Mean Corpuscular HGB Conc 33.7 g/dl (31.0-35.0); Mean Corpuscular Hemoglobin 27.5 pg (27.0-33.0); Mean Corpuscular Volume 81.7 fL (80.0-98.0); Mean Platelet Volume 9.1 fL (9.4-12.3); Monocytes Absolute Auto 0.2 X10*3/uL (0.1-1.2); Monocytes Percent Auto 5.9 % (2-11); Neutrophils Absolute Auto 1.6 x10*3/uL (2.0-8.3); Neutrophils Percent Auto 51.2 % (45-73); Platelet Count 272 X10*3/uL (160-400); Red Blood Count 5.02 X10*6/uL (4.20-5.50); Red Cell Distribution Width 13.2 % (11.0-16.0); White Blood Count 3.1 X10*3/uL (4.8-10.8)
[2022-08-23 13:20] LABS: Appearance Urine Clear; Color Urine Yellow; Glucose Urine UA Negative (Negative); Leukocyte Esterase Urine Negative (Negative); Nitrite Urine Negative (Negative); Specific Gravity - Urine 1.015 (1.005-1.025); Urine Blood Negative (Negative); Urine Ketones Negative (Negative); Urine Protein Negative (Neg-Trace)
[2022-08-23 13:37] LABS: Alanine Aminotransferase 18 U/L (0-31); Alkaline Phosphatase 107 U/L (39-117); Anion Gap 15 (12-20); Aspartate Amino Transferase 19 U/L (5-31); Bilirubin Direct 0.2 mg/dL (0.0-0.5); Bilirubin Total 0.5 mg/dL (0.0-1.0); Blood Urea Nitrogen 14 mg/dL (9-16); Calcium 9.9 mg/dL (8.4-10.2); Carbon Dioxide 27 mmol/L (22-29); Chloride 102 mmol/L (96-108); Creatinine Clr Calc Pharmacy 61.7; Estimated Glomerular Filt Rate > 60; Glucose Random 93 mg/dL (60-115); Potassium 4.2 mmol/L (3.3-5.1); Sodium 140 mmol/L (135-145); Total Protein 7.9 g/dL (6.5-8.0)
[2022-08-23 21:19] VITALS: BP 147/96; PULSE 82; TEMP 36.7; O2SAT 98
[2022-08-23 22:06] VITALS: BP 137/87; PULSE 72; TEMP 36.7; O2SAT 96
--- NOTE | 2022-08-23 22:52 | ED_ITS ---
HPI - Abdominal Pain General Chief Complaint: Abdominal Pain Stated Complaint: abd pain nausea Time Seen by Provider: 08/23/22 22:39 Source: patient Mode of arrival: ambulatory Limitations: no limitations History of Present Illness HPI narrative: 56-year-old female who presents emergency department for evaluation of abdominal pain x4 days. She states that the pain came on gradually and has been intermittent. She points to her lower abdomen bilaterally and to her mid abdomen from the umbilicus down to her pubic area when asked to localize the pain. She states the pain is sharp and 7/10 at its worst. She states she feels very bloated. She has associated nausea with no vomiting. She states that 2 days prior she had 4 episodes of diarrheal stool. She did have a normal bowel movement this morning. She denied fever but states she did have chills. She has had frequency with no dysuria. Patient states that she has had a history of multiple small-bowel obstructions and had a surgery for hernia repair and bowel obstruction January 2021. She also has a history of appendectomy and cholecystectomy. MD elicited complaint: abdominal pain Pertinent past history: other (Small-bowel obstruction requiring surgical repair, hernia repair) Onset (ago): day(s) (4) Pain Consistency: intermittent Location: periumbilical, RLQ, LLQ and suprapubic Severity: moderate Pain scale (0-10): 7 Quality: sharp Radiation: none Migration to: no migration Exacerbating factors: nothing Relieving factors: nothing Associated symptoms: nausea, chills and other (Urinary frequent) Related Data Home Medications Medication Instructions Recorded Confirmed paroxetine HCl 20 mg tablet (Paxil) 20 mg PO DAILY 01/12/21 11/16/21 amlodipine 10 mg tablet 10 mg PO DAILY 11/09/21 11/16/21 buspirone 7.5 mg tablet 7.5 mg PO BID 11/09/21 11/16/21 cromolyn 5.2 mg/spray (4 %) nasal 1 spray intranasal TID 11/09/21 11/16/21 spray hydroxyzine HCl 25 mg tablet 25 - 50 mg PO Q6H PRN panic attack 11/09/21 11/16/21 lisinopril 10 mg tablet 10 mg PO DAILY 11/09/21 11/16/21 omeprazole 20 mg capsule,delayed 20 mg PO DAILY 11/09/21 11/16/21 release Previous Rx's Medication Instructions Recorded benzonatate 200 mg capsule 200 mg PO TID PRN cough #20 caps 04/08/22 Allergies Allergy/AdvReac Type Severity Reaction Status Date / Time penicillin V Allergy Intermediate rash Verified 08/01/22 13:04 Penicillins Allergy Intermediate SWELLING, Verified 08/01/22 13:04 WELTS NSAIDS (Non-Steroidal AdvReac Heartburn Verified 08/01/22 13:04 Anti-Inflamma Review of Systems Review of Systems Yes all other systems are reviewed and are negative [facility] Past Medical History [facility] Narrative: Social history: She denies tobacco, alcohol and drug use. Medical History Abdominal pain Anemia Asthma Bowel obstruction Fibromyalgia HTN (hypertension) Hypertension Internal and external hemorrhoids without complication Recurrent incisional hernia Surgical History Hx of appendectomy Hx of cholecystectomy Family History Family History Sister History of colon cancer Social History Social History Household Members: None Housing: Apartment Do you presently have visiting nurse or other home services: No Alcohol intake: never Patient Tobacco Use Status: Never used Tobacco Smoked in Last 30 Days: No Use of substances other than those prescribed or required for medical reasons: No Advance Directives: No Patient : No service: No Current occupational status: unemployed Physical Exam ED Vital Signs: Vital Signs - 24 hr 08/23/22 11:46 08/23/22 21:19 08/23/22 22:06 Temperature 98.2 F 98.1 F 98.0 F Pulse Rate 83 82 72 Respiratory Rate 18 Blood Pressure 150/93 H 147/96 H 137/87 Pulse Oximetry 99 98 96 Oxygen Delivery Method Room Air Room Air Room Air 08/23/22 23:37 Temperature 97.9 F Pulse Rate 65 Respiratory Rate 14 Blood Pressure 146/88 H Pulse Oximetry 98 Oxygen Delivery Method Room Air BMI result Body Mass Index 29.9 Const General: cooperative and no acute distress Orientation/consciousness: oriented to person and oriented to place Limitations: no limitations HENMT Head: Yes normal to inspection, Yes normocephalic and Yes atraumatic Ears: external ears normal General nose exam: Normal external nose present Face and sinus: Yes normal facial exam Mouth: Normal oral and palatal mucosa present Throat: Yes posterior oropharynx normal Eyes General: appearance normal, both eyes and all related structures Pupils: Equal, round and reactive pupils present Neck Neck: Yes normal visual inspection, Yes no lymphadenopathy, Yes trachea midline and Yes supple Chest Chest palpation & inspection: normal inspection of the chest and normal palpation of entire chest wall Resp Effort & Inspection: normal respiratory effort and able to speak in complete sentences Auscultation: clear to auscultation bilaterally Cardio Rate: regular rate Rhythm: regular rhythm Heart sounds: S1 normal heart sound present, S2 normal heart sound present and no murmurs GI Inspection: Yes distended Palpation (GI): Soft to palpation, Tenderness to palpation present (GI) in the LLQ, in the RLQ and periumbilically and no guarding Auscultation: High-pitched bowel sounds present General: Yes no CVA tenderness Back/Spine/Pelvis Back: no CVA tenderness Skin General skin exam: no rashes or lesions noted Neuro General: oriented to person and oriented to place Cranial nerves: Yes CN's II-XII intact bilaterally and Yes Equal, round and reactive pupils present Cognition (Neuro): normal cognition Motor exam (neuro): 5/5 motor strength present throughout Extrem General: Yes normal to inspection Psych Appearance: grossly normal Speech and movement: Normal speech and movement present Affect: normal affect Attitude: cooperative Thought process: Normal thought process present Thought content: Normal thought content present Course Course Course Narrative: 56-year-old female who presents emergency department for evaluation of 4 days of abdominal pain which she describes as a intermittent, sharp, pain which is 7/10 associated with nausea chills and urinary frequency. She did have 1 day of diar ashwin 2 days prior and had a normal bowel movement today. She states she feels very bloated as well. Physical examination did reveal abdominal distension with high-pitched bowel sounds. She did have tenderness palpation of her lower abdomen and umbilical area of her abdomen. 2305: WBC low 3100. CMP is normal. Urinalysis negative. Patient's presentation is concerning for a partial versus complete small- bowel obstruction. I will obtain a CT scan of the abdomen pelvis without IV contrast. Patient was ordered to get normal saline IV x1 L, morphine 4 mg IV and Zofran 4 mg IV. 0115: The patient's lipase was normal. Patient did feel better after the above treatment. The CT scan of the patient's abdomen pelvis without IV contrast did not reveal any clear cause for her pain, there was no small-bowel obstruction . The radiologist noted that the patient does have a significant amount stool and gas in her colon. The patient will be treated for possible constipation is the cause of her symptoms. MDM - Abdominal Pain Lab Data Result diagrams: 08/23/22 13:09 08/23/22 13:09 Labs: Lab Results 08/23/22 08/23/22 08/23/22 Range/Units 13:09 13: 13:09 WBC 3.1 L (4.8-10.8) X10*3/uL RBC 5.02 (4.20-5.50) X10*6/uL Hgb 13.8 (12.0-16.0) g/dl Hct 41.0 (37.0-47.0) % MCV 81.7 (80.0-98.0) fL MCH 27.5 (27.0-33.0) pg MCHC 33.7 (31.0-35.0) g/dl RDW 13.2 (11.0-16.0) % Plt Count 272 (160-400) X10*3/uL MPV 9.1 L (9.4-12.3) fL Immature Gran % (Auto) 0.0 (0.0-0.4) % Neut % (Auto) 51.2 (45-73) % Lymph % (Auto) 38.4 (20-40) % Beckham % (Auto) 5.9 (2-11) % Eos % (Auto) 2.9 (0-4) % Baso % (Auto) 1.6 (0-2) % Lymph # (Auto) 1.2 (1.2-4.9) X10*3/uL Beckham # (Auto) 0.2 (0.1-1.2) X10*3/uL Eos # (Auto) 0.1 (0.0-0.4) X10*3/uL Baso # (Auto) 0.1 (0.0-0.2) X10*3/uL Abs Immat Gran (auto) 0.00 (0.00-0.03) X10*3/uL Absolute Neuts (auto) 1.6 L (2.0-8.3) x10*3/uL Absolute Nucleated RBC 0.000 (0.0-0.012) X10*3/uL Nucleated RBC % (auto) 0.0 (0.0-0.2) /100WBC Sodium 140 (135-145) mmol/L Potassium 4.2 (3.3-5.1) mmol/L Chloride 102 (96-108) mmol/L Carbon Dioxide 27 (22-29) mmol/L Anion Gap 15 (12-20) BUN 14 (9-16) mg/dL Creatinine 0.82 (0.5-1.4) mg/dL Estim Creat Clear Calc 61.7 Estimated GFR > 60 Random Glucose 93 (60-115) mg/dL Calcium 9.9 (8.4-10.2) mg/dL Total Bilirubin 0.5 (0.0-1.0) mg/dL Direct Bilirubin 0.2 (0.0-0.5) mg/dL AST 19 (5-31) U/L ALT 18 (0-31) U/L Alkaline Phosphatase 107 (39-117) U/L Total Protein 7.9 (6.5-8.0) g/dL Albumin 5.0 (3.5-5.0) g/dL Lipase 40 (8-78) U/L Urine Color Yellow Urine Appearance Clear Urine pH 7.0 (5.0-9.0) Ur Specific Dulzura 1.015 (1.005-1.025) Urine Protein Negative (Neg-Trace) mg/dL Urine Glucose (UA) Negative (Negative) mg/dL Urine Ketones Negative (Negative) mg/dL Urine Blood Negative (Negative) Urine Nitrite Negative (Negative) Ur Leukocyte Esterase Negative (Negative) Discharge Plan Discharge Clinical Impression: Abdominal pain, Constipation, Abdominal distension Patient Disposition: Home, Self-Care Instructions: Constipation (ED), High Fiber Diet (ED) Additional Instructions: Your blood work was unremarkable. CT scan of your abdomen pelvis did not reveal any small-bowel obstruction or a clear cause for your pain. The radiologist did note that you have a lot of gas and stool (poop) in your large bowel and this may be causing your distension abdominal pain. Follow the constipation instructions above. Take the fiber supplement Metamucil 1 tsp in 8 oz of water once a day for 2 weeks. Take the [id number] stool softener Colace twice a day for 2 weeks. If you do not have a good bowel movement in 4 days then take the [id number] laxative Senokot as directed on the bottle that you by. Follow-up with your doctor in 2 days. Please return to the emergency department if your symptoms get worse or if you develop any symptoms that are concerning to you. Prescriptions: No Action benzonatate 200 mg capsule 200 mg PO TID PRN (Reason: cough) Qty: 20 0RF paroxetine HCl [Paxil] 20 mg tablet 20 mg PO DAILY cromolyn 5.2 mg/spray (4 %) spray,non-aerosol 1 spray intranasal TID hydroxyzine HCl 25 mg tablet 25 - 50 mg PO Q6H PRN (Reason: panic attack) omeprazole 20 mg capsule,delayed release(DR/EC) 20 mg PO DAILY buspirone 7.5 mg tablet 7.5 mg PO BID lisinopril 10 mg tablet 10 mg PO DAILY amlodipine 10 mg tablet 10 mg PO DAILY
[2022-08-23 23:15] LABS: Lipase 40 U/L (8-78)
[2022-08-23 23:37] VITALS: BP 146/88; PULSE 65; RESP 14; TEMP 36.6; O2SAT 98
[2022-08-23] MEDS: 0.9 % Sodium Chloride 1,000 ML 999 ML IV (23:56)
[2022-08-23] MEDS: ondansetron HCL 4 MG/2 ML VIAL IVPUSH (23:57)
[2022-08-23] MEDS: Morphine Sulfate 4 MG/ML CARTRIDGE IVPUSH (23:57)
== END 2022-08-24 01:36 | disposition home or self-care (01) ==
PROVIDERS: Emergency Provider Emergency Medicine Emergency Medical Services; PCP Internal Medicine Geriatric Medicine
DX: R10.31 Right lower quadrant pain (principal); R10.32 Left lower quadrant pain; R35.0 Frequency of micturition; K59.00 Constipation, unspecified; Z79.899 Other long term (current) drug therapy
CPT/HCPCS: 36415; 74176; 80048; 80076; 81003; 83690; 85025; 96374; 96375; 99284; J2270; J2405

== ENCOUNTER 2022-09-01 14:45 | Outpatient (REF) | payer MEDICAID, SELFPAY ==
--- NOTE | ~2022-09-01 | US_ITS ---
EXAMINATION: US PELVIS CLINICAL INFORMATION: Fibroids COMPARISON: Previous CT of the abdomen and pelvis August 2022 and pelvic ultrasound November 2021 TECHNIQUE: Ultrasound of the pelvis is performed using both transabdominal and transvaginal transducers along with Doppler. Transvaginal imaging is performed due to inadequate visualization transabdominally. FINDINGS: The uterus is anteverted and measures 8.1 x 3.3 x 4.4 cm in dimension. There are 2 focal uterine lesions measuring 1 x 0.7 x 0.8 cm in the upper anterior uterine body adjacent to the endometrium and 1.5 x 1 x 1.2 cm in the uterine fundus. These are slightly decreased from previous ultrasound November 2021 when they measured 1.2 cm and 1.9 x 2.3 x 2 cm. Endometrial thickness is normal measuring 0.3 cm. The ovaries are normal. The right ovary measures 1.8 x 1.4 x 1.8 cm. The left ovary measures 2.4 x 1.4 x 1.9 cm. There is no fluid in the pelvis. US/US pelvic and transvaginal IMPRESSION: Small uterine fibroids.
== END 2022-09-01 14:46 | disposition home or self-care (01) ==
LOC: HO.US 14:45
PROVIDERS: Visit Provider Obstetrics & Gynecology
DX: D21.9 Benign neoplasm of connective and other soft tissue, unspecified (principal)
CPT/HCPCS: 76830; 76856

== ENCOUNTER → 2022-09-11 13:56 | Outpatient (BNVA) | payer MEDICAID, SELFPAY | PROVIDERS: PCP Internal Medicine Geriatric Medicine; Visit Provider Obstetrics & Gynecology | DX: D21.9 Benign neoplasm of connective and other soft tissue, unspecified (principal) | CPT/HCPCS: 99212 ==

== ENCOUNTER 2023-02-03 11:53 | Emergency (ER) | payer MEDICAID, SELFPAY ==
--- NOTE | ~2023-02-03 | CT_ITS ---
EXAMINATION: CT ABDOMEN AND PELVIS WITHOUT CONTRAST CLINICAL INFORMATION: Epigastric pain, history of hernia COMPARISON: CT abdomen pelvis 08/23/2022, 10/03/2021 TECHNIQUE: Multidetector volumetric imaging was performed from the superior aspect of the liver through the pubic symphysis. Sagittal and coronal reformatted images were obtained on the technologist's workstation. This CT examination was performed using dose optimization techniques as appropriate, variously including the following: *Automated exposure control *Adjustment of mA and/or kV according to patient size (this includes techniques or standardized protocols for targeted exams where dose is matched to indication/reason for exam; i.e. extremities or head) *Use of iterative reconstruction technique DLP: 475 mGy-cm FINDINGS: LUNG BASES: Cluster of pulmonary micronodules in the right lung base is unchanged from 10/03/2021, which exceeds the Fleischner Society recommended duration of follow-up. ABDOMINAL AND PELVIC WALL: Midline ventral surgical scarring with diastases of the rectus abdominis musculature. Tiny fat-containing umbilical hernia. No herniated loops of bowel. LIVER AND BILIARY TREE: Hypoattenuating hepatic parenchyma suggesting hepatic steatosis. Calcified granuloma in the right hepatic lobe. Fluid attenuation right hepatic lobe simple cyst. GALLBLADDER: Status post cholecystectomy. PANCREAS: Unremarkable. SPLEEN: Unremarkable. ADRENAL GLANDS: Unremarkable. KIDNEYS AND URETERS: Unremarkable. GASTROINTESTINAL TRACT: There is mild colonic wall thickening involving the descending and rectosigmoid colon. Colonic diverticulosis, without focal inflammatory changes centered around any particular diverticuli. Patulous small bowel surgical anastomosis in the central abdomen. Otherwise no dilation of small or large bowel to suggest obstruction. No findings to suggest appendicitis. VASCULAR: Unremarkable. LYMPH NODES/PERITONEUM: No lymphadenopathy. FREE FLUID: None. BLADDER: Unremarkable. PELVIC VISCERA: Unremarkable. OSSEOUS STRUCTURES: Unremarkable. CT/CT abdomen pelvis wo IV con IMPRESSION: 1. There is mild colonic wall thickening involving the descending and rectosigmoid colon, which may reflect a mild colitis if clinical symptoms are appropriate. There is a background of colonic diverticulosis however without focal inflammatory changes centered around any particular diverticuli to favor diverticulitis, though this would be another consideration. 2. Midline ventral surgical scarring with diastases of the rectus abdominis musculature and a tiny superimposed fat-containing umbilical hernia. No herniated bowel or findings to suggest bowel obstruction. 3. Hepatic steatosis.
[2023-02-03 11:54] VITALS: BP 139/92; PULSE 79; RESP 18; TEMP 36.8; O2SAT 98; BMI 69.5
--- NOTE | 2023-02-03 11:55 | ED.ABDPAIN ---
HPI - Abdominal Pain General Chief Complaint: General Medical <KRISTINE Lopez - Last Filed: 02/03/23 11:57> Stated Complaint: stomach pain/back pain <KRISTINE Lopez - Last Filed: 02/03/23 11:57> Time Seen by Provider: 02/03/23 12:29 <KRISTINE Lopez - Last Filed: 02/03/23 11:57> Source: patient <Amberly May NP - Last Filed: 02/03/23 13:51> Mode of arrival: ambulatory <Amberly May NP - Last Filed: 02/03/23 13:51> Limitations: no limitations <Amberly May NP - Last Filed: 02/03/23 13:51> History of Present Illness HPI narrative: 57-year-old female with a history of multiple abdominal surgeries who presents to the ER with 3 days of generalized abdominal pain with radiation to her back with nausea and belching. Patient had a BM this morning that was normal. No vomiting. No urinary symptoms, no fevers or chills. <Amberly May NP - Last Filed: 02/03/23 13:51> MD elicited complaint: abdominal pain <Amberly May NP - Last Filed: 02/03/23 13:51> Related Data Home Medications: Home Medications Medication Instructions Recorded Confirmed paroxetine HCl 20 mg tablet (Paxil) 20 mg PO DAILY 01/12/21 11/16/21 amlodipine 10 mg tablet 10 mg PO DAILY 11/09/21 11/16/21 buspirone 7.5 mg tablet 7.5 mg PO BID 11/09/21 11/16/21 cromolyn 5.2 mg/spray (4 %) nasal 1 spray intranasal TID 11/09/21 11/16/21 spray hydroxyzine HCl 25 mg tablet 25 - 50 mg PO Q6H PRN panic attack 11/09/21 11/16/21 lisinopril 10 mg tablet 10 mg PO DAILY 11/09/21 11/16/21 omeprazole 20 mg capsule,delayed 20 mg PO DAILY 11/09/21 11/16/21 release Previous Rx's Medication Instructions Recorded benzonatate 200 mg capsule 200 mg PO TID PRN cough #20 caps 04/08/22 levofloxacin 750 mg tablet 750 mg PO DAILY 7 days #7 tabs 02/03/23 metronidazole 500 mg tablet 500 mg PO BID 7 days #14 tabs 02/03/23 ondansetron 4 mg disintegrating 4 mg PO Q6H PRN nausea and 02/03/23 tablet vomiting #10 tabs <KRISTINE Lopez - Last Filed: 02/03/23 11:57> Allergies/Adverse Reactions: Allergies Allergy/AdvReac Type Severity Reaction Status Date / Time penicillin V Allergy Intermediate rash Verified 08/01/22 13:04 Penicillins Allergy Intermediate SWELLING, Verified 08/01/22 13:04 WELTS NSAIDS (Non-Steroidal AdvReac Heartburn Verified 08/01/22 13:04 Anti-Inflamma <KRISTINE Lopez - Last Filed: 02/03/23 11:57> Review of Systems Review of Systems Yes all other systems are reviewed and are negative <Amberly May NP - Last Filed: 02/03/23 13:51> Constitutional: Reports no additional constitutional complaints, Denies body ache(s), Denies chills, Denies fever(s), Denies headache(s) and Denies weakness <Amberly May NP - Last Filed: 02/03/23 13:51> Eyes: Reports no additional eye complaints and Denies change in vision <Amberly May NP - Last Filed: 02/03/23 13:51> Reports system reviewed and no additional complaints, except as documented, Denies dizziness, Denies headache(s), Denies nasal congestion, Denies nasal discharge and Denies neck pain <Amberly May NP - Last Filed: 02/03/23 13:51> Cardiovascular: Reports no additional cardiovascular complaints, Denies chest pain, Denies leg edema and Denies dyspnea <Amberly May NP - Last Filed: 02/03/23 13:51> Respiratory: Reports no additional respiratory complaints, Denies cough and Denies dyspnea <Amberly May NP - Last Filed: 02/03/23 13:51> Gastrointestinal: Reports no additional gastrointestinal complaints, Reports abdominal pain, Reports belching, Denies diarrhea, Reports nausea and Denies vomiting <Amberly May NP - Last Filed: 02/03/23 13:51> Genitourinary: Reports no additional female genitourinary complaints and Denies urinary incontinence <Amberly May NP - Last Filed: 02/03/23 13:51> Musculoskeletal: Reports no additional musculoskeletal complaints, Denies back pain, Denies arthralgias, Denies joint swelling, Denies neck pain, Denies numbness and Denies tingling <Amberly May NP - Last Filed: 02/03/23 13:51> Skin/Breast: Reports system reviewed and no additional complaints, except as docu and Denies rash <Amberly May NP - Last Filed: 02/03/23 13:51> Reports system reviewed and no additional complaints, except as documented, Denies dizziness, Denies headache(s), Denies numbness, Denies tingling and Denies weakness <Amberly May NP - Last Filed: 02/03/23 13:51> FOR[facility]LY [facility] Past Medical History Attestation statement: The following information was validated with the patient. <Amberly May NP - Last Filed: 02/03/23 13:51> Source: old records reviewed and nursing notes reviewed <Amberly May NP - Last Filed: 02/03/23 13:51> Medical History: Medical History Abdominal pain Anemia Asthma Bowel obstruction Fibromyalgia HTN (hypertension) Hypertension Internal and external hemorrhoids without complication Recurrent incisional hernia <KRISTINE Lopez - Last Filed: 02/03/23 11:57> Surgical History: Surgical History Hx of appendectomy Hx of cholecystectomy <KRISTINE Lopez - Last Filed: 02/03/23 11:57> Family History Family History: Family History Sister History of colon cancer <KRISTINE Lopez - Last Filed: 02/03/23 11:57> Social History Social History: Social History Household Members: None Housing: Apartment Do you presently have visiting nurse or other home services: No Alcohol intake: never Patient Tobacco Use Status: Never used Tobacco Smoked in Last 30 Days: No Use of substances other than those prescribed or required for medical reasons: No Advance Directives: No Advance Directives Information Provided: Yes service: No Current occupational status: unemployed <KRISTINE Lopez - Last Filed: 02/03/23 11:57> Physical Exam ED Vital Signs: Vital Signs - 24 hr 02/03/23 11:54 Temperature 98.2 F Pulse Rate 79 Respiratory Rate 18 Blood Pressure 139/92 H Pulse Oximetry 98 Oxygen Delivery Method Room Air BMI result Body Mass Index 69.5 <KRISTINE Lopez - Last Filed: 02/03/23 11:57> Vital Signs - 24 hr 02/03/23 11:54 Temperature 98.2 F Pulse Rate 79 Respiratory Rate 18 Blood Pressure 139/92 H Pulse Oximetry 98 Oxygen Delivery Method Room Air BMI result Body Mass Index 69.5 <Amberly May NP - Last Filed: 02/03/23 13:51> Const General: cooperative, healthy appearing, comfortable and no acute distress <Amberly May NP - Last Filed: 02/03/23 13:51> Orientation/consciousness: patient oriented x3 <Amberly May NP - Last Filed: 02/03/23 13:51> Limitations: no limitations <Amberly May NP - Last Filed: 02/03/23 13:51> HENMT Head: Yes normal to inspection <Amberly May NP - Last Filed: 02/03/23 13:51> Ears: hearing grossly normal bilaterally <Amberly May NP - Last Filed: 02/03/23 13:51> Eyes General: appearance normal, both eyes and all related structures <Amberly May NP - Last Filed: 02/03/23 13:51> Pupils: Equal, round and reactive pupils present <Amberly May [employer] - Last Filed: 02/03/23 13:51> Neck Neck: Yes normal visual inspection and Yes full ROM <Amberly May [employer] - Last Filed: 02/03/23 13:51> Chest Chest palpation & inspection: normal inspection of the chest <Amberly May [employer] - Last Filed: 02/03/23 13:51> Resp Effort & Inspection: normal respiratory effort <Amberly May [employer] - Last Filed: 02/03/23 13:51> Auscultation: clear to auscultation bilaterally <Amberly May [employer] - Last Filed: 02/03/23 13:51> Cardio Rate: regular rate <Amberly May [employer] - Last Filed: 02/03/23 13:51> Rhythm: regular rhythm <Amberly May [employer] - Last Filed: 02/03/23 13:51> Peripheral pulses: Peripheral pulses 2+ throughout <Amberly May [employer] - Last Filed: 02/03/23 13:51> GI Inspection: Yes normal to inspection <Amberly May [employer] - Last Filed: 02/03/23 13:51> Palpation (GI): Soft to palpation and Tenderness to palpation present (GI) (Mild diffuse tenderness with no rebound or guarding) <Amberly May [employer] - Last Filed: 02/03/23 13:51> General: Yes no CVA tenderness <Amberly May [employer] - Last Filed: 02/03/23 13:51> Back/Spine/Pelvis Back: no CVA tenderness <Amberly May [employer] - Last Filed: 02/03/23 13:51> Thoracic/Lumbar Spine: thoracic and lumbar spine normal to inspection <Amberly May [employer] - Last Filed: 02/03/23 13:51> Skin General skin exam: no rashes or lesions noted <Amberly May [employer] - Last Filed: 02/03/23 13:51> Neuro General: patient oriented x3 and moves all extremities <Amberly May [employer] - Last Filed: 02/03/23 13:51> Cranial nerves: Yes Equal, round and reactive pupils present <Amberly May NP - Last Filed: 02/03/23 13:51> Cognition (Neuro): normal cognition <Amberly May NP - Last Filed: 02/03/23 13:51> Gait exam (Neuro): Normal gait present <Amberly May NP - Last Filed: 02/03/23 13:51> Course Course Course Narrative: This is an RME: Additional HPI, ROS, PE not included below will be deferred to primary provider. 57-year-old female history of bowel obstructions, hypertension, asthma, recurrent incisional hernia presents with epigastric pain that radiates throughout her entire abdomen x3 days. Patient tells me she has a mesh for her hernia and she is concerned that there might be a complication with it. Reports nausea and belching however denies vomiting, fevers, chills, chest pain, shortness of breath, hematemesis, hematochezia, melena, urinary or changes or changes in bowel habits Physical exam epigastric tenderness. Vital signs stable Plan labs, CT of the abdomen pelvis <KRISTINE Lopez - Last Filed: 02/03/23 11:57> Reevaluation(s) Reevaluation #1: 1350-CT is consistent with colitis versus diverticulitis. Pain is well controlled. No vomiting. Labs are unremarkable. Patient will be discharged home with course of antibiotics. Reviewed worrisome signs and symptoms of when to return to the emergency room. Comfortable plan for discharge home <Amberly May NP - Last Filed: 02/03/23 13:51> Medical Decision Making Medical Decision Making MDM Narrative: 57-year-old female with history of multiple abdominal surgeries who presents to the ER with complaints of generalized abdominal pain for the last 3 days with nausea and belching. On exam patient with mild diffuse tenderness with no rebound or guarding. Overall patient nontoxic appearing normal bowel sounds. Doubt obstruction. Patient had labs, UA and a CT ordered from triage. Will give GI cocktail <MARTHA Bob Last Filed: 02/03/23 13:51> Differential Diagnosis Differential Diagnoses: The differential diagnosis associated with the presentation includes <Amberly May NP - Last Filed: 04/15/23 13:51> Gastritis, less likely bowel obstruction, pancreatitis -patient is status post appendectomy, cholecystectomy <Amberly May NP - Last Filed: 02/03/23 13:51> Lab Data MDM Lab Attestation statement: I reviewed the patient's lab results. <Amberly May NP - Last Filed: 02/03/23 13:51> Result Diagrams: 02/03/23 12:02 02/03/23 12:02 <Trinity Seymour PA - Last Filed: 02/03/23 11:57> Labs: Lab Results 02/03/23 02/03/23 02/03/23 Range/Units 12:02 12:02 13:24 WBC 3.4 L (4.8-10.8) X10*3/uL RBC 5.02 (4.20-5.50) X10*6/uL Hgb 13.6 (12.0-16.0) g/dl Hct 40.0 (37.0-47.0) % MCV 79.7 L (80.0-98.0) fL MCH 27.1 (27.0-33.0) pg MCHC 34.0 (31.0-35.0) g/dl RDW 13.9 (11.0-16.0) % Plt Count 268 (160-400) X10*3/uL MPV 9.2 L (9.4-12.3) fL Immature Gran % (Auto) 0.3 (0.0-0.4) % Neut % (Auto) 48.2 (45-73) % Lymph % (Auto) 40.1 H (20-40) % [place] % (Auto) 7.6 (2-11) % Eos % (Auto) 2.6 (0-4) % Baso % (Auto) 1.2 (0-2) % Lymph # (Auto) 1.4 (1.2-4.9) X10*3/uL [place] # (Auto) 0.3 (0.1-1.2) X10*3/uL Eos # (Auto) 0.1 (0.0-0.4) X10*3/uL Baso # (Auto) 0.0 (0.0-0.2) X10*3/uL Abs Immat Gran (auto) 0.01 (0.00-0.03) X10*3/uL Absolute Neuts (auto) 1.7 L (2.0-8.3) x10*3/uL Absolute Nucleated RBC 0.000 (0.0-0.012) X10*3/uL Nucleated RBC % (auto) 0.0 (0.0-0.2) /100WBC Sodium 140 (135-145) mmol/L Potassium 4.1 (3.3-5.1) mmol/L Chloride 105 (96-108) mmol/L Carbon Dioxide 28 (22-29) mmol/L Anion Gap 11 L (12-20) BUN 15 (9-16) mg/dL Creatinine 0.99 (0.5-1.4) mg/dL Estim Creat Clear Calc 85.0 Estimated GFR 58 Random Glucose 116 H (60-115) mg/dL Calcium 9.8 (8.4-10.2) mg/dL Magnesium 1.8 (1.6-2.6) mg/dL Total Bilirubin 0.5 (0.0-1.0) mg/dL AST 22 (5-31) U/L ALT 23 (0-31) U/L Alkaline Phosphatase 99 (39-117) U/L Total Protein 7.3 (6.5-8.0) g/dL Albumin 4.7 (3.5-5.0) g/dL Lipase 20 (8-78) U/L Urine Color Yellow Urine Appearance Clear Urine pH 5.5 (5.0-9.0) Ur Specific [place] 1.025 (1.005-1.025) Urine Protein Negative (Neg-Trace) mg/dL Urine Glucose (UA) Negative (Negative) mg/dL Urine Ketones Negative (Negative) mg/dL Urine Blood Negative (Negative) Urine Nitrite Negative (Negative) Ur Leukocyte Esterase Trace H (Negative) Urine RBC 0-2 (0-2) /HPF Urine WBC 0-5 (0-5) /HPF Ur Squamous Epith Cells 6-10 (0-2) /HPF Urine Bacteria Trace (None Seen) Hyaline Casts 0-2 (0-2) /LPF <KRISTINE Lopez - Last Filed: 02/03/23 11:57> Lab Results 02/03/23 02/03/23 02/03/23 Range/Units 12:02 12:02 13:24 WBC 3.4 L (4.8-10.8) X10*3/uL RBC 5.02 (4.20-5.50) X10*6/uL Hgb 13.6 (12.0-16.0) g/dl Hct 40.0 (37.0-47.0) % MCV 79.7 L (80.0-98.0) fL MCH 27.1 (27.0-33.0) pg MCHC 34.0 (31.0-35.0) g/dl RDW 13.9 (11.0-16.0) % Plt Count 268 (160-400) X10*3/uL MPV 9.2 L (9.4-12.3) fL Immature Gran % (Auto) 0.3 (0.0-0.4) % Neut % (Auto) 48.2 (45-73) % Lymph % (Auto) 40.1 H (20-40) % [place] % (Auto) 7.6 (2-11) % Eos % (Auto) 2.6 (0-4) % Baso % (Auto) 1.2 (0-2) % Lymph # (Auto) 1.4 (1.2-4.9) X10*3/uL [place] # (Auto) 0.3 (0.1-1.2) X10*3/uL Eos # (Auto) 0.1 (0.0-0.4) X10*3/uL Baso # (Auto) 0.0 (0.0-0.2) X10*3/uL Abs Immat Gran (auto) 0.01 (0.00-0.03) X10*3/uL Absolute Neuts (auto) 1.7 L (2.0-8.3) x10*3/uL Absolute Nucleated RBC 0.000 (0.0-0.012) X10*3/uL Nucleated RBC % (auto) 0.0 (0.0-0.2) /100WBC Sodium 140 (135-145) mmol/L Potassium 4.1 (3.3-5.1) mmol/L Chloride 105 (96-108) mmol/L Carbon Dioxide 28 (22-29) mmol/L Anion Gap 11 L (12-20) BUN 15 (9-16) mg/dL Creatinine 0.99 (0.5-1.4) mg/dL Estim Creat Clear Calc 85.0 Estimated GFR 58 Random Glucose 116 H (60-115) mg/dL Calcium 9.8 (8.4-10.2) mg/dL Magnesium 1.8 (1.6-2.6) mg/dL Total Bilirubin 0.5 (0.0-1.0) mg/dL AST 22 (5-31) U/L ALT 23 (0-31) U/L Alkaline Phosphatase 99 (39-117) U/L Total Protein 7.3 (6.5-8.0) g/dL Albumin 4.7 (3.5-5.0) g/dL Lipase 20 (8-78) U/L Urine Color Yellow Urine Appearance Clear Urine pH 5.5 (5.0-9.0) Ur Specific [place] 1.025 (1.005-1.025) Urine Protein Negative (Neg-Trace) mg/dL Urine Glucose (UA) Negative (Negative) mg/dL Urine Ketones Negative (Negative) mg/dL Urine Blood Negative (Negative) Urine Nitrite Negative (Negative) Ur Leukocyte Esterase Trace H (Negative) Urine RBC 0-2 (0-2) /HPF Urine WBC 0-5 (0-5) /HPF Ur Squamous Epith Cells 6-10 (0-2) /HPF Urine Bacteria Trace (None Seen) Hyaline Casts 0-2 (0-2) /LPF <Amberly May NP - Last Filed: 02/03/23 13:51> Independent Interpretation I performed an independent interpretation of an: CT Scan <Amberly May NP - Last Filed: 02/03/23 13:51> Interpretation: I independently reviewed the CT scan <Amberly May NP - Last Filed: 02/03/23 13:51> Radiology Impression Discussion of test interpretation with radiology: I have reviewed the radiologist's reading. <Amberly May NP - Last Filed: 02/03/23 13:51> Radiologist Impression: NDINGS: LUNG BASES: Cluster of pulmonary micronodules in the right lung base is unchanged from 10/03/2021, which exceeds the Fleischner Society recommended duration of follow-up.? ABDOMINAL AND PELVIC WALL:? Midline ventral surgical scarring with diastases of the rectus abdominis musculature. Tiny fat-containing umbilical hernia. No herniated loops of bowel. LIVER AND BILIARY TREE: Hypoattenuating hepatic parenchyma suggesting hepatic steatosis. Calcified granuloma in the right hepatic lobe. Fluid attenuation right hepatic lobe simple cyst.? GALLBLADDER: Status post cholecystectomy.? PANCREAS: Unremarkable.? SPLEEN: Unremarkable.? ADRENAL GLANDS: Unremarkable.? KIDNEYS AND URETERS: Unremarkable.? GASTROINTESTINAL TRACT: There is mild colonic wall thickening involving the descending and rectosigmoid colon. Colonic diverticulosis, without focal inflammatory changes centered around any particular diverticuli. Patulous small bowel surgical anastomosis in the central abdomen. Otherwise no dilation of small or large bowel to suggest obstruction. No findings to suggest appendicitis. VASCULAR: Unremarkable. LYMPH NODES/PERITONEUM: No lymphadenopathy. FREE FLUID: None. BLADDER: Unremarkable.? PELVIC VISCERA: Unremarkable. OSSEOUS STRUCTURES: Unremarkable.? CT/CT abdomen pelvis wo IV con IMPRESSION: 1.? There is mild colonic wall thickening involving the descending and rectosigmoid colon, which may reflect a mild colitis if clinical symptoms are appropriate. There is a background of colonic diverticulosis however without focal inflammatory changes centered around any particular diverticuli to favor diverticulitis, though this would be another consideration. 2.? Midline ventral surgical scarring with diastases of the rectus abdominis musculature and a tiny superimposed fat-containing umbilical hernia. No herniated bowel or findings to suggest bowel obstruction. 3.? Hepatic steatosis. <Amberly May NP - Last Filed: 02/03/23 13:51> Medications Administered Discontinued Medications Generic Name Dose Route Start Last Admin Trade Name Freq PRN Reason Stop Dose Admin Al Hydroxide/Mg Hydroxide 30 ml 02/03/23 13:17 02/03/23 13:24 Magnesium Hydrox/Alum Hydrox 30 Ml Oral.Susp PO 02/03/23 13:18 30 ml ONCE ONE Administration Lidocaine HCl 15 ml 02/03/23 13:17 02/03/23 13:24 Lidocaine Hcl Viscous 2 % 15 Ml Solution MUCOUS MEM 02/03/23 13:18 15 ml ONCE ONE Administration Ondansetron HCl 4 mg 02/03/23 11:57 02/03/23 12:36 Ondansetron Odt 4 Mg Tab.Rapdis TRANSLINGU 02/03/23 11:58 4 mg ONCE ONE Administration <KRISTINE Lopez - Last Filed: 02/03/23 11:57> Medications Administered Discontinued Medications Generic Name Dose Route Start Last Admin Trade Name Freq PRN Reason Stop Dose Admin Al Hydroxide/Mg Hydroxide 30 ml 02/03/23 13:17 02/03/23 13:24 Magnesium Hydrox/Alum Hydrox 30 Ml Oral.Susp PO 02/03/23 13:18 30 ml ONCE ONE Administration Lidocaine HCl 15 ml 02/03/23 13:17 02/03/23 13:24 Lidocaine Hcl Viscous 2 % 15 Ml Solution MUCOUS MEM 02/03/23 13:18 15 ml ONCE ONE Administration Ondansetron HCl 4 mg 02/03/23 11:57 02/03/23 12:36 Ondansetron Odt 4 Mg Tab.Violet TRANSLINGU 02/03/23 11:58 4 mg ONCE ONE Administration <Amberly May NP - Last Filed: 02/03/23 13:51> Discharge Plan Discharge Clinical Impression: Colitis <KRISTINE Lopez - Last Filed: 02/03/23 11:57> Patient Disposition: Home, Self-Care <KRISTINE Lopez - Last Filed: 02/03/23 11:57> Instructions: Diverticulitis Diet (ED), Colitis (ED) <KRISTINE Lopez - Last Filed: 02/03/23 11:57> Prescriptions: New metronidazole 500 mg tablet 500 mg PO BID 7 Days Qty: 14 0RF levofloxacin 750 mg tablet 750 mg PO DAILY 7 Days Qty: 7 0RF ondansetron 4 mg tablet,disintegrating 4 mg PO Q6H PRN (Reason: nausea and vomiting) Qty: 10 0RF No Action benzonatate 200 mg capsule 200 mg PO TID PRN (Reason: cough) Qty: 20 0RF paroxetine HCl [Paxil] 20 mg tablet 20 mg PO DAILY cromolyn 5.2 mg/spray (4 %) spray,non-aerosol 1 spray intranasal TID hydroxyzine HCl 25 mg tablet 25 - 50 mg PO Q6H PRN (Reason: panic attack) omeprazole 20 mg capsule,delayed release(DR/EC) 20 mg PO DAILY buspirone 7.5 mg tablet 7.5 mg PO BID lisinopril 10 mg tablet 10 mg PO DAILY amlodipine 10 mg tablet 10 mg PO DAILY <KRISTINE Lopez - Last Filed: 02/03/23 11:57> Referrals: Name,MD Armando [Primary Care Provider] - 1 week <KRISTINE Lopez - Last Filed: 02/03/23 11:57>
[2023-02-03 12:07] LABS: MANUAL DIFF FLAG NO
[2023-02-03 12:08] LABS: Basophils Percent Auto 1.2 % (0-2); Eosinophils Absolute Auto 0.1 X10*3/uL (0.0-0.4); Eosinophils Percent Auto 2.6 % (0-4); Hemoglobin 13.6 g/dl (12.0-16.0); Imm Gran Abs Auto 0.01 X10*3/uL (0.00-0.03); Imm Gran Pct Auto 0.3 % (0.0-0.4); Lymphocytes Absolute Auto 1.4 X10*3/uL (1.2-4.9); Lymphocytes Percent Auto 40.1 % (20-40); Mean Corpuscular Hemoglobin 27.1 pg (27.0-33.0); Mean Corpuscular Volume 79.7 fL (80.0-98.0); Mean Platelet Volume 9.2 fL (9.4-12.3); Monocytes Absolute Auto 0.3 X10*3/uL (0.1-1.2); Monocytes Percent Auto 7.6 % (2-11); Neutrophils Absolute Auto 1.7 x10*3/uL (2.0-8.3); Neutrophils Percent Auto 48.2 % (45-73); Platelet Count 268 X10*3/uL (160-400); Red Blood Count 5.02 X10*6/uL (4.20-5.50); Red Cell Distribution Width 13.9 % (11.0-16.0); White Blood Count 3.4 X10*3/uL (4.8-10.8)
[2023-02-03 12:25] LABS: Alanine Aminotransferase 23 U/L (0-31); Albumin Level 4.7 g/dL (3.5-5.0); Alkaline Phosphatase 99 U/L (39-117); Anion Gap 11 (12-20); Aspartate Amino Transferase 22 U/L (5-31); Bilirubin Total 0.5 mg/dL (0.0-1.0); Blood Urea Nitrogen 15 mg/dL (9-16); Calcium 9.8 mg/dL (8.4-10.2); Carbon Dioxide 28 mmol/L (22-29); Chloride 105 mmol/L (96-108); Estimated Glomerular Filt Rate 58; Glucose Random 116 mg/dL (60-115); Lipase 20 U/L (8-78); Magnesium 1.8 mg/dL (1.6-2.6); Potassium 4.1 mmol/L (3.3-5.1); Sodium 140 mmol/L (135-145); Total Protein 7.3 g/dL (6.5-8.0)
[2023-02-03] MEDS: Ondansetron ODT 4 MG TAB.RAPDIS TRANSLINGU (12:36)
[2023-02-03] MEDS: Lidocaine HCl Viscous 2 % 15 ML SOLUTION MUCOUS MEM (13:24)
[2023-02-03] MEDS: Magnesium Hydrox/Alum Hydrox 30 ML ORAL.SUSP PO (13:24)
[2023-02-03 13:33] LABS: Appearance Urine Clear; Color Urine Yellow; Glucose Urine UA Negative (Negative); Leukocyte Esterase Urine Trace (Negative); Nitrite Urine Negative (Negative); PH 5.5 (5.0-9.0); Specific Gravity - Urine 1.025 (1.005-1.025); UMIC TRIGGER UACC YES; Urine Blood Negative (Negative); Urine Ketones Negative (Negative); Urine Protein Negative (Neg-Trace)
[2023-02-03 13:37] LABS: Bacteria Urine Trace (None Seen); Hyaline Casts Urine 0-2 /LPF (0-2); RBC Urine 0-2 /HPF (0-2); WBC Urine 0-5 /HPF (0-5)
== END 2023-02-03 14:18 | disposition home or self-care (01) ==
PROVIDERS: Physician Assistant; Emergency Provider Emergency Medicine; PCP Internal Medicine Geriatric Medicine
DX: K52.9 Noninfective gastroenteritis and colitis, unspecified (principal); I10 Essential (primary) hypertension; Z79.899 Other long term (current) drug therapy
CPT/HCPCS: 36415; 74176; 80053; 81001; 83690; 83735; 85025; 99284

== ENCOUNTER 2023-03-12 12:31 | Outpatient (REF) | payer MEDICAID, SELFPAY ==
[2023-03-12 12:45] VITALS: BMI 30.9
[2023-03-12 12:46] VITALS: BP 129/78; PULSE 90; RESP 16; TEMP 36.4; O2SAT 98
== END 2023-03-12 12:32 | disposition home or self-care (01) ==
LOC: HO.MS 12:31
PROVIDERS: PCP Internal Medicine Geriatric Medicine; Visit Provider Ophthalmology
PROC: (CPT 66761; principal; 2023-03-12 15:20)
DX: H40.20X0 Unspecified primary angle-closure glaucoma, stage unspecified (principal); I10 Essential (primary) hypertension
CPT/HCPCS: 66761

== ENCOUNTER 2023-03-26 12:31 | Outpatient (REF) | payer MEDICAID, SELFPAY ==
[2023-03-26 13:23] VITALS: BMI 31.1
[2023-03-26 13:24] VITALS: BP 125/76; PULSE 82; RESP 16; TEMP 36.4; O2SAT 98
== END 2023-03-26 12:32 | disposition home or self-care (01) ==
LOC: HO.MS 12:31
PROVIDERS: PCP Internal Medicine Geriatric Medicine; Visit Provider Ophthalmology
PROC: (CPT 66761; principal; 2023-03-26 17:30)
DX: H40.20X0 Unspecified primary angle-closure glaucoma, stage unspecified (principal); I10 Essential (primary) hypertension
CPT/HCPCS: 66761

== ENCOUNTER 2023-06-09 07:13 | Emergency (ER) | payer MEDICAID, SELFPAY ==
--- NOTE | ~2023-06-09 | CT_ITS ---
EXAMINATION: CT ABDOMEN AND PELVIS WITHOUT CONTRAST CLINICAL INFORMATION: Abdominal pain. History of bowel obstruction COMPARISON: CT abdomen and pelvis 02/03/2023 TECHNIQUE: Multidetector volumetric imaging was performed from the superior aspect of the liver through the pubic symphysis. Sagittal and coronal reformatted images were obtained on the technologist's workstation. This CT examination was performed using dose optimization techniques as appropriate, variously including the following: *Automated exposure control *Adjustment of mA and/or kV according to patient size (this includes techniques or standardized protocols for targeted exams where dose is matched to indication/reason for exam; i.e. extremities or head) *Use of iterative reconstruction technique DLP: 554 mGy-cm FINDINGS: LUNG BASES: Cluster of micronodules in the right lobe seen on previous study are not well appreciated on the present exam.. LIVER, GALLBLADDER, AND BILIARY TREE: The liver is normal in size, shape, and attenuation. There is a punctate calcific right hepatic lobe, stable. No other focal hepatic lesion or biliary ductal dilatation is present. The gallbladder is not visualized. PANCREAS: Unremarkable. SPLEEN: Unremarkable. ADRENAL GLANDS: Unremarkable. KIDNEYS AND URETERS: The kidneys are normal in size, shape, and attenuation. No hydronephrosis, hydroureter, or calculi seen. No perinephric stranding. BLADDER: Unremarkable GASTROINTESTINAL TRACT: There is a dilated segment of anastomosis in the upper mid pelvis involving a loop of small bowel in upper mid pelvis. It appears similar to previous study 02/03/2023. There is radiopaque density and slight narrowing suspected in the ER from anastomosis on axial image 57/3. There is a clinical concern a small bowel follow-through can be performed. There is moderate stool throughout the colon suggestive of constipation. ABDOMINAL WALL: No significant hernia is appreciated. LYMPH NODES: Normal. VASCULAR: Unremarkable. PELVIC VISCERA: There is no free air or free fluid. Small shotty lymph nodes in bilateral inguinal region.. OSSEOUS STRUCTURES: There is moderate L5-S1 and L4-L5 facet joint arthropathy. CT/CT abdomen pelvis wo IV con IMPRESSION: 1. There is a dilated segment of small bowel anastomosis in the upper mid pelvis . It appears similar to previous study 02/03/2023. There is radiopaque density and slight narrowing in efferent anastomosis as described above. If there is is a clinical concern, a small bowel follow-through can be performed. 2. Moderate constipation. Fleischner guidelines were followed.
[2023-06-09 07:25] VITALS: BP 132/82; PULSE 75; RESP 16; TEMP 36.3; O2SAT 98; BMI 32.2
--- NOTE | 2023-06-09 07:32 | ED.GENADULT ---
HPI - General Adult General Chief complaint: General Medical Stated complaint: abd pain Time Seen by Provider: 06/09/23 07:30 Source: patient and RN notes reviewed Mode of arrival: ambulatory Limitations: no limitations History of Present Illness HPI narrative: This is a 57-year-old female, with a past medical history of hypertension, and multiple bowel obstructions, presenting to the emergency department for evaluation of abdominal pain x 1 week. Patient reports that last week she developed abdominal pain with associated acid reflux that constantly she burps up. She states that she has a history of bowel obstructions and this is typically how her bowel obstructions initially present. She last ate a peanut butter sandwich yesterday and was able to drink decaf coffee today however has had constant bile that she is burping up. She admits to having an episode yellow color diarrhea yesterday, no bloody or black stool. She also endorses back pain since the onset of her symptoms. She has had multiple abdominal surgeries include 3 bowel obstruction repairs with mesh, multiple hernia repairs, cholecystectomy, appendectomy. She was seen by her GI doctor and was told to start taking omeprazole last week. She started taking this however has not noticed an improvement. No other complaints or concerns at this time. MD complaint: Abdominal pain Onset (ago): week(s) Radiation: non-radiation Severity: mild Quality: burning Pain Consistency: constant Relieving factors: none Exacerbating factors: none Associated symptoms: denies other symptoms Treatments prior to arrival: none Related Data Home Medications Medication Instructions Recorded Confirmed paroxetine HCl 20 mg tablet (Paxil) 20 mg PO DAILY 01/12/21 11/16/21 amlodipine 10 mg tablet 10 mg PO DAILY 11/09/21 11/16/21 buspirone 7.5 mg tablet 7.5 mg PO BID 11/09/21 11/16/21 cromolyn 5.2 mg/spray (4 %) nasal 1 spray intranasal TID 11/09/21 11/16/21 spray hydroxyzine HCl 25 mg tablet 25 - 50 mg PO Q6H PRN panic attack 11/09/21 11/16/21 lisinopril 10 mg tablet 10 mg PO DAILY 11/09/21 11/16/21 omeprazole 20 mg capsule,delayed 20 mg PO DAILY 11/09/21 11/16/21 release Previous Rx's Medication Instructions Recorded benzonatate 200 mg capsule 200 mg PO TID PRN cough #20 caps 04/08/22 levofloxacin 750 mg tablet 750 mg PO DAILY 7 days #7 tabs 02/03/23 metronidazole 500 mg tablet 500 mg PO BID 7 days #14 tabs 02/03/23 ondansetron 4 mg disintegrating 4 mg PO Q6H PRN nausea and 02/03/23 tablet vomiting #10 tabs aluminum-mag hydroxide-simethicone 10 ml PO QID PRN indigestion #355 06/09/23 200 mg-200 mg-20 mg/5 mL oral susp mL (Maalox Advanced) Allergies Allergy/AdvReac Type Severity Reaction Status Date / Time penicillin V Allergy Intermediate rash Verified 08/01/22 13:04 Penicillins Allergy Intermediate SWELLING, Verified 08/01/22 13:04 WELTS NSAIDS (Non-Steroidal AdvReac Heartburn Verified 08/01/22 13:04 Anti-Inflamma Review of Systems Review of Systems: Yes all other systems are reviewed and are negative Constitutional: Constitutional: Reports as per [facility] Past Medical History Attestation statement: The following information was validated with the patient. Medical History Abdominal pain Anemia Asthma Bowel obstruction Fibromyalgia HTN (hypertension) Hypertension Internal and external hemorrhoids without complication Recurrent incisional hernia Surgical History Hx of appendectomy Hx of cholecystectomy Family History Family History Sister History of colon cancer Social History Social History Household Members: None Housing: Apartment Do you presently have visiting nurse or other home services: No Alcohol intake: never Patient Tobacco Use Status: Never used Tobacco service: No Current occupational status: unemployed Physical Exam ED Vital Signs: Vital Signs - 24 hr 06/09/23 08:53 Temperature 98.4 F Pulse Rate 67 Respiratory Rate 17 Blood Pressure 127/77 Pulse Oximetry 98 Oxygen Delivery Method Room Air BMI result Body Mass Index 32.2 Const General: cooperative, comfortable and no acute distress Orientation/consciousness: patient oriented x3 Limitations: no limitations HENMT Other: Moist mucous membranes Head: Yes normal to inspection, Yes normocephalic and Yes atraumatic Ears: hearing grossly normal bilaterally General nose exam: Normal external nose present Face and sinus: Yes normal facial exam Mouth: Normal oral and palatal mucosa present, oropharynx normal and moist mucous membranes Throat: Yes posterior oropharynx normal Eyes General: appearance normal, both eyes and all related structures Eyelids: Yes eyelids normal Conjunctivae: conjunctivae normal Sclerae: sclerae normal Pupils: Equal, round and reactive pupils present EOM: EOMs intact bilaterally Neck Neck: Yes normal visual inspection, Yes full ROM and Yes no lymphadenopathy Lymphatic: no lymphadenopathy noted Chest Chest palpation & inspection: normal inspection of the chest Resp Effort & Inspection: normal respiratory effort and able to speak in complete sentences Auscultation: clear to auscultation bilaterally, no crackles, no rales, no rhonchi and no wheezes Cardio Rate: regular rate Rhythm: regular rhythm Heart sounds: S1 normal heart sound present and S2 normal heart sound present GI Other: Small umbilical hernia noted, nontender, non erythematous. Abdomen is soft, nondistended. Hypoactive bowel sounds throughout all abdominal quadrants. Diffuse tenderness throughout entire abdomen, exquisite the tender in the left upper and left lower abdomen. + guarding, no rebound Inspection: Yes normal to inspection Back/Spine/Pelvis Other: No midline spine tenderness, diffuse tenderness throughout the entire back without any point tenderness. No overlying erythema, edema, or rashes noted Skin General skin exam: no rashes or lesions noted Trauma: no lacerations or abrasions Wounds: no wounds Neuro General: patient oriented x3 and moves all extremities Cranial nerves: Yes Equal, round and reactive pupils present Extrem General: Yes normal to inspection Right upper extremity: normal to inspection Left upper extremity: normal to inspection Right lower extremity: normal to inspection Left lower extremity: normal to inspection Course Reevaluation(s) Reevaluation #1: Patient re-evaluated, feeling much better after receiving Maalox. CT abdomen and pelvis showing dilated segment of small bowel anastomosis in the upper mid pelvis, similar to CT scan in the past. I discussed case with Dr. Dumont who reviewed imaging and evaluated patient. Reporting that CT findings are similar and that this is not a surgical case at this time. REcommending re-evaluation after bowel movement and given clears. Moderate constipation is also seen. Discussed results with patient, pending troponin. Time: 11:06 Reevaluation #2: Troponin < 2.7, patient has a heart score of 3. Symptoms consistent with gastritis/acid reflux. Her symptoms have improved since taking Maalox. Will discharge with Maalox and advised to continue taking omeprazole. Advised to follow-up with GI specialist. Patient understands and agrees with plan. Patient stable for discharge. Time: 11:59 Reevaluation #3: Pt moved bowels, feeling well and is able to tolerate PO. Will discharge with close follow up with her GI specialist - she sees [facility]. Given return precautions for any new or worsening symptoms occur. Patient understands and agrees with plan. Patient stable for discharge. Medications Administered Discontinued Medications Generic Name Dose Route Start Last Admin Trade Name Freq PRN Reason Stop Dose Admin Al Hydroxide/Mg Hydroxide 30 ml 06/09/23 07:56 06/09/23 08:01 Magnesium Hydrox/Alum Hydrox 30 Ml Oral.Susp PO 06/09/23 07:57 30 ml ONCE ONE Administration Lidocaine HCl 15 ml 06/09/23 07:57 06/09/23 08:01 Lidocaine Hcl Viscous 2 % 15 Ml Solution MUCOUS MEM 06/09/23 07:58 15 ml ONCE ONE Administration Medical Decision Making Medical Decision Making [facility] Narrative: 57-year-old female, with past medical history of hypertension and multiple bowel obstructions, presenting to the emergency department for evaluation abdominal pain x1 week. She was seen by her GI doctor and was told to start taking omeprazole. She started taking this however has not noticed an improvement. She states a constant burping up bile acid. On arrival, patient is nontoxic appearing, vital signs all within normal limits. Abdomen is soft, however diffusely tender throughout entire abdomen with exquisite tenderness on the left upper and left lower abdomen, +guarding. No rebound. Plan: Labs, UA, EKG, CT abdomen without contrast, medicated with Maalox and viscous lidocaine for symptomatic relief. Differential Diagnosis Differential Diagnoses: The differential diagnosis associated with the presentation includes Bowel obstruction, gastritis, GERD, diverticulosis, diverticulitis Admission/Observation Consideration of admission/observation: Escalation of care including admission/observation considered Patient would have been admitted to the hospital had her work up had any findings where hospital admission was appropriate and her clinical presentation warranted hospital admission. Consult Healthcare Provider Management of the patient was discussed with: Manager Copy Dr. Dumont Lab Data [facility] Lab Attestation statement: I reviewed the patient's lab results. No leukocytosis, stable H and H, urine does not appear to be infected. 06/09/23 08:37 06/09/23 08:36 Labs: Lab Results 06/09/23 06/09/23 06/09/23 Range/Units 08:36 08:37 08:37 WBC 3.7 L (4.8-10.8) X10*3/uL RBC 4.91 (4.20-5.50) X10*6/uL Hgb 13.2 (12.0-16.0) g/dl Hct 38.5 (37.0-47.0) % MCV 78.4 L (80.0-98.0) fL MCH 26.9 L (27.0-33.0) pg MCHC 34.3 (31.0-35.0) g/dl RDW 13.5 (11.0-16.0) % Plt Count 233 (160-400) X10*3/uL MPV 9.1 L (9.4-12.3) fL Immature Gran % (Auto) 0.3 (0.0-0.4) % Neut % (Auto) 48.9 (45-73) % Lymph % (Auto) 39.7 (20-40) % Clare % (Auto) 7.8 (2-11) % Eos % (Auto) 2.2 (0-4) % Baso % (Auto) 1.1 (0-2) % Lymph # (Auto) 1.5 (1.2-4.9) X10*3/uL Clare # (Auto) 0.3 (0.1-1.2) X10*3/uL Eos # (Auto) 0.1 (0.0-0.4) X10*3/uL Baso # (Auto) 0.0 (0.0-0.2) X10*3/uL Abs Immat Gran (auto) 0.01 (0.00-0.03) X10*3/uL Absolute Neuts (auto) 1.8 L (2.0-8.3) x10*3/uL Absolute Nucleated RBC 0.000 (0.0-0.012) X10*3/uL Nucleated RBC % (auto) 0.0 (0.0-0.2) /100WBC Sodium 140 (135-145) mmol/L Potassium 4.1 (3.3-5.1) mmol/L Chloride 107 (96-108) mmol/L Carbon Dioxide 23 (22-29) mmol/L Anion Gap 14 (12-20) BUN 14 (9-16) mg/dL Creatinine 0.87 (0.5-1.4) mg/dL Estim Creat Clear Calc 59.8 Estimated GFR > 60 Random Glucose 94 (60-115) mg/dL Calcium 10.2 (8.4-10.2) mg/dL Magnesium 2.1 (1.6-2.6) mg/dL Total Bilirubin 0.7 (0.0-1.0) mg/dL Direct Bilirubin 0.3 (0.0-0.5) mg/dL AST 23 (5-31) U/L ALT 25 (0-31) U/L Alkaline Phosphatase 120 H (39-117) U/L Troponin I High Sens (<3.5-17.0) ng/L Total Protein 7.9 (6.5-8.0) g/dL Albumin 4.7 (3.5-5.0) g/dL Lipase 21 (8-78) U/L Urine Color Dark Yellow Urine Appearance Cloudy Urine pH 5.5 (5.0-9.0) Ur Specific [place] >= 1.030 H (1.005-1.025) Urine Protein Trace (Neg-Trace) mg/dL Urine Glucose (UA) Negative (Negative) mg/dL Urine Ketones Trace (Negative) mg/dL Urine Blood Negative (Negative) Urine Nitrite Negative (Negative) Ur Leukocyte Esterase Negative (Negative) 06/09/23 Range/Units 08:44 WBC (4.8-10.8) X10*3/uL RBC (4.20-5.50) X10*6/uL Hgb (12.0-16.0) g/dl Hct (37.0-47.0) % MCV (80.0-98.0) fL MCH (27.0-33.0) pg MCHC (31.0-35.0) g/dl RDW (11.0-16.0) % Plt Count (160-400) X10*3/uL MPV (9.4-12.3) fL Immature Gran % (Auto) (0.0-0.4) % Neut % (Auto) (45-73) % Lymph % (Auto) (20-40) % Clare % (Auto) (2-11) % Eos % (Auto) (0-4) % Baso % (Auto) (0-2) % Lymph # (Auto) (1.2-4.9) X10*3/uL Clare # (Auto) (0.1-1.2) X10*3/uL Eos # (Auto) (0.0-0.4) X10*3/uL Baso # (Auto) (0.0-0.2) X10*3/uL Abs Immat Gran (auto) (0.00-0.03) X10*3/uL Absolute Neuts (auto) (2.0-8.3) x10*3/uL Absolute Nucleated RBC (0.0-0.012) X10*3/uL Nucleated RBC % (auto) (0.0-0.2) /100WBC Sodium (135-145) mmol/L Potassium (3.3-5.1) mmol/L Chloride (96-108) mmol/L Carbon Dioxide (22-29) mmol/L Anion Gap (12-20) BUN (9-16) mg/dL Creatinine (0.5-1.4) mg/dL Estim Creat Clear Calc Estimated GFR Random Glucose (60-115) mg/dL Calcium (8.4-10.2) mg/dL Magnesium (1.6-2.6) mg/dL Total Bilirubin (0.0-1.0) mg/dL Direct Bilirubin (0.0-0.5) mg/dL AST (5-31) U/L ALT (0-31) U/L Alkaline Phosphatase (39-117) U/L Troponin I High Sens < 2.7 (<3.5-17.0) ng/L Total Protein (6.5-8.0) g/dL Albumin (3.5-5.0) g/dL Lipase (8-78) U/L Urine Color Urine Appearance Urine pH (5.0-9.0) Ur Specific [place] (1.005-1.025) Urine Protein (Neg-Trace) mg/dL Urine Glucose (UA) (Negative) mg/dL Urine Ketones (Negative) mg/dL Urine Blood (Negative) Urine Nitrite (Negative) Ur Leukocyte Esterase (Negative) Independent Interpretation I performed an independent interpretation of an: EKG Interpretation: EKG normal sinus rhythm with a ventricular rate of 69 beats per minute, AZ interval 168, QTC 407. T-wave inversion seen in lead 3, AVF V5, V6, T-wave inversions also seen in previous EKG performed in May 2022. Reviewed EKG with attending physician, Dr. Villegas. Radiology Impression Discussion of test interpretation with radiology: I have reviewed the radiologist's reading. Radiologist Impression: EXAMINATION: CT ABDOMEN AND PELVIS WITHOUT CONTRAST? CLINICAL INFORMATION: Abdominal pain. History of bowel obstruction? COMPARISON: CT abdomen and pelvis 02/03/2023 TECHNIQUE: Multidetector volumetric imaging was performed from the superior aspect of the liver through the pubic symphysis. Sagittal and coronal reformatted images were obtained on the technologist's workstation.? This CT examination was performed using dose optimization techniques as appropriate, variously including the following: *Automated exposure control *Adjustment of mA and/or kV according to patient size (this includes techniques or standardized protocols for targeted exams where dose is matched to indication/reason for exam; i.e. extremities or head) *Use of iterative reconstruction technique DLP: 554 mGy-cm FINDINGS: LUNG BASES: Cluster of micronodules in the right lobe seen on previous study are not well appreciated on the present exam..? LIVER, GALLBLADDER, AND BILIARY TREE: The liver is normal in size, shape, and attenuation. There is a punctate calcific right hepatic lobe, stable. No other focal hepatic lesion or biliary ductal dilatation is present. The gallbladder is not visualized.? PANCREAS: Unremarkable.? SPLEEN: Unremarkable.? ADRENAL GLANDS: Unremarkable.? KIDNEYS AND URETERS: The kidneys are normal in size, shape, and attenuation. No hydronephrosis, hydroureter, or calculi seen. No perinephric stranding. ? BLADDER: Unremarkable? GASTROINTESTINAL TRACT: There is a dilated segment of anastomosis in the upper mid pelvis involving a loop of small bowel in upper mid pelvis. It appears similar to previous study 02/03/2023. There is radiopaque density and slight narrowing suspected in the ER from anastomosis on axial image 57/3. There is a clinical concern a small bowel follow-through can be performed. There is moderate stool throughout the colon suggestive of constipation. ABDOMINAL WALL: No significant hernia is appreciated.? LYMPH NODES: Normal. VASCULAR: Unremarkable. PELVIC VISCERA: There is no free air or free fluid. Small shotty lymph nodes in bilateral inguinal region..? OSSEOUS STRUCTURES: There is moderate L5-S1 and L4-L5 facet joint arthropathy.? CT/CT abdomen pelvis wo IV con IMPRESSION: 1.? There is a dilated segment of small bowel anastomosis in the upper mid pelvis . It appears similar to previous study 02/03/2023. There is radiopaque density and slight narrowing in efferent anastomosis as described above. If there is is a clinical concern, a small bowel follow-through can be performed. 2.? Moderate constipation. ? Fleischner guidelines were followed. Dictated By: Deep Ayala MD Chronic Conditions Patient?s care impacted by: Other Scores Heart Score History: -0- slightly suspicious ECG: -1- non specific repolarization disturbance Age: -1- >45 - <65 Risk factory: -1- 1 or 2 risk factors Troponin: -0- < or = normal limit Score: 3 Risk: 1.7% Critical Care Time Critical Care Time Critical Care Time: Yes Total Critical Care Time: 35 Attestation: I have personally provided critical care time exclusive of time spent on separately billable procedures. Time includes review of lab data, radiology results, discussion with consultants, and monitoring for potential decompensation. Intervention performed as documented. Discharge Plan Discharge Clinical Impression: Acid reflux, Abdominal pain Patient Disposition: Home, Self-Care Instructions: Gastroesophageal Reflux Disease (ED), Indigestion (ED) Additional Instructions: Your CT of your abdomen shows moderate constipation without any obstruction. Please drink plenty of fluids get plenty of rest. Take prescribed medication as directed. Continue taking Prilosec. Please follow-up with your primary care physician regarding this visit. Follow up with your GI specialist on Sunday, call to make an appointment. If any new or worsening symptoms occur, including but not limited to worsening reflux, chest pain, shortness of breath, abdominal pain, nausea, vomiting or diarrhea, please return for re-evaluation. Prescriptions: New alum-mag hydroxide-simeth [Maalox Advanced] 200-200-20 mg/5 mL suspension 10 ml PO QID PRN (Reason: indigestion) Qty: 355 0RF Rx Instructions: administer between meals and at bedtime No Action benzonatate 200 mg capsule 200 mg PO TID PRN (Reason: cough) Qty: 20 0RF metronidazole 500 mg tablet 500 mg PO BID 7 Days Qty: 14 0RF levofloxacin 750 mg tablet 750 mg PO DAILY 7 Days Qty: 7 0RF ondansetron 4 mg tablet,disintegrating 4 mg PO Q6H PRN (Reason: nausea and vomiting) Qty: 10 0RF paroxetine HCl [Paxil] 20 mg tablet 20 mg PO DAILY cromolyn 5.2 mg/spray (4 %) spray,non-aerosol 1 spray intranasal TID hydroxyzine HCl 25 mg tablet 25 - 50 mg PO Q6H PRN (Reason: panic attack) omeprazole 20 mg capsule,delayed release(DR/EC) 20 mg PO DAILY buspirone 7.5 mg tablet 7.5 mg PO BID lisinopril 10 mg tablet 10 mg PO DAILY amlodipine 10 mg tablet 10 mg PO DAILY Interventions: ED Discharge Assessment Last Done: 06/09/23 13:19 Discharge Date/Time: 06/09/23 13:20
--- NOTE | 2023-06-09 07:53 | ECG_ITS ---
Test Reason : epigastric pain Blood Pressure : / mmHG Vent. Rate : 069 BPM Atrial Rate : 069 BPM P-R Int : 168 ms QRS Dur : 080 ms QT Int : 380 ms P-R-T Axes : 025 008 -32 degrees QTc Int : 407 ms Normal sinus rhythm Nonspecific T wave abnormality Abnormal ECG When compared with ECG of 30-MAY-2022 08:07, No significant change was found Referred By: Lina Li Electronically Signed By:KYLE FOUNTAIN
[2023-06-09] MEDS: Magnesium Hydrox/Alum Hydrox 30 ML ORAL.SUSP PO (08:01)
[2023-06-09] MEDS: Lidocaine HCl Viscous 2 % 15 ML SOLUTION MUCOUS MEM (08:01)
--- NOTE | 2023-06-09 08:17 | PC.NURSE ---
pt medicated per mar for belly pain. came back from CT scan and is now reporting blurry vision, dizziness, nausea, and left sided tingling. KRISTINE Mills notified and aware. EKG obtained, labs currently being drawn
[2023-06-09 08:49] LABS: MANUAL DIFF FLAG NO
[2023-06-09 08:50] LABS: Appearance Urine Cloudy; Color Urine Dark Yellow; Glucose Urine UA Negative (Negative); Leukocyte Esterase Urine Negative (Negative); Nitrite Urine Negative (Negative); PH 5.5 (5.0-9.0); Specific Gravity - Urine >= 1.030 (1.005-1.025); Urine Blood Negative (Negative); Urine Ketones Trace mg/dL (Negative); Urine Protein Trace mg/dL (Neg-Trace)
[2023-06-09 08:52] LABS: Basophils Percent Auto 1.1 % (0-2); Eosinophils Absolute Auto 0.1 X10*3/uL (0.0-0.4); Eosinophils Percent Auto 2.2 % (0-4); Hematocrit 38.5 % (37.0-47.0); Hemoglobin 13.2 g/dl (12.0-16.0); Imm Gran Abs Auto 0.01 X10*3/uL (0.00-0.03); Imm Gran Pct Auto 0.3 % (0.0-0.4); Lymphocytes Absolute Auto 1.5 X10*3/uL (1.2-4.9); Lymphocytes Percent Auto 39.7 % (20-40); Mean Corpuscular HGB Conc 34.3 g/dl (31.0-35.0); Mean Corpuscular Hemoglobin 26.9 pg (27.0-33.0); Mean Corpuscular Volume 78.4 fL (80.0-98.0); Mean Platelet Volume 9.1 fL (9.4-12.3); Monocytes Absolute Auto 0.3 X10*3/uL (0.1-1.2); Monocytes Percent Auto 7.8 % (2-11); Neutrophils Absolute Auto 1.8 x10*3/uL (2.0-8.3); Neutrophils Percent Auto 48.9 % (45-73); Platelet Count 233 X10*3/uL (160-400); Red Blood Count 4.91 X10*6/uL (4.20-5.50); Red Cell Distribution Width 13.5 % (11.0-16.0); White Blood Count 3.7 X10*3/uL (4.8-10.8)
[2023-06-09 08:53] VITALS: BP 127/77; PULSE 67; RESP 17; TEMP 36.9; O2SAT 98
[2023-06-09 09:04] LABS: Alanine Aminotransferase 25 U/L (0-31); Albumin Level 4.7 g/dL (3.5-5.0); Alkaline Phosphatase 120 U/L (39-117); Anion Gap 14 (12-20); Aspartate Amino Transferase 23 U/L (5-31); Bilirubin Direct 0.3 mg/dL (0.0-0.5); Bilirubin Total 0.7 mg/dL (0.0-1.0); Blood Urea Nitrogen 14 mg/dL (9-16); Calcium 10.2 mg/dL (8.4-10.2); Carbon Dioxide 23 mmol/L (22-29); Chloride 107 mmol/L (96-108); Creatinine Clr Calc Pharmacy 59.8; Estimated Glomerular Filt Rate > 60; Glucose Random 94 mg/dL (60-115); Lipase 21 U/L (8-78); Magnesium 2.1 mg/dL (1.6-2.6); Potassium 4.1 mmol/L (3.3-5.1); Sodium 140 mmol/L (135-145); Total Protein 7.9 g/dL (6.5-8.0)
[2023-06-09 11:55] LABS: Troponin-I High Sensitivity < 2.7 ng/L (<3.5-17.0)
--- NOTE | 2023-06-09 12:47 | P.CONGS_ITS ---
History of Present Illness Consult details Consult date: 06/09/23 Reason for consult: abdominal pain Narrative: The patient is a 57-year-old woman with a history of multiple abdominal operations including a small-bowel resection who presented to the emergency department with multiple complaints. She previously had multiple abdominal operations including hernia repairs. She notes that she has been passing gas and feels like she needs to have a bowel movement but notes that she has heartburn/reflux, bilateral abdominal burning indication all cramps in her abd omen. She has had some nausea but no vomiting and denies any watery diarrhea. In reviewing the EMR, she has been seen by Dr. Gorman and here in the emergency department multiple times because of vague abdominal complaints. Her last CT scan in January of this year showed no significant surgical pathology and today's repeat CT isn't significantly different. The patient voiced concern about prior history of bowel obstructions in her multiple operations and wanted to be assessed to be sure that she did not need another operation. She denies any chest pain, difficulty breathing, shortness of breath, dysphagia, odynophagia, localizing neurologic symptoms. Review of Systems Review of Systems: Yes all other systems are reviewed and are negative Constitutional: Constitutional: Reports as per [facility] Past Medical History Medical History Abdominal pain Anemia Asthma Bowel obstruction Fibromyalgia HTN (hypertension) Hypertension Internal and external hemorrhoids without complication Recurrent incisional hernia Family History Family History Sister History of colon cancer Surgical History Surgical History Hx of appendectomy Hx of cholecystectomy Social History Social History Household Members: None Housing: Apartment Do you presently have visiting nurse or other home services: No Alcohol intake: never Patient Tobacco Use Status: Never used Tobacco Advance Directives: No Advance Directives Information Provided: No service: No Current occupational status: unemployed Meds Allergies Allergy/AdvReac Type Severity Reaction Status Date / Time penicillin V Allergy Intermediate rash Verified 08/01/22 13:04 Penicillins Allergy Intermediate SWELLING, Verified 08/01/22 13:04 WELTS NSAIDS (Non-Steroidal AdvReac Heartburn Verified 08/01/22 13:04 Anti-Inflamma Home Medications Medication Instructions Recorded Confirmed Last Taken Type paroxetine HCl 20 mg tablet (Paxil) 20 mg PO DAILY 01/12/21 11/16/21 Unknown History amlodipine 10 mg tablet 10 mg PO DAILY 11/09/21 11/16/21 Unknown History buspirone 7.5 mg tablet 7.5 mg PO BID 11/09/21 11/16/21 Unknown History cromolyn 5.2 mg/spray (4 %) nasal 1 spray intranasal TID 11/09/21 11/16/21 Unknown History spray hydroxyzine HCl 25 mg tablet 25 - 50 mg PO Q6H PRN panic attack 11/09/21 11/16/21 Unknown History lisinopril 10 mg tablet 10 mg PO DAILY 11/09/21 11/16/21 Unknown History omeprazole 20 mg capsule,delayed 20 mg PO DAILY 11/09/21 11/16/21 Unknown History release Physical Exam Vital Signs: Vital Signs: Last Vital Signs Temp 98.4 F 06/09/23 08:53 Pulse 67 06/09/23 08:53 Resp 17 06/09/23 08:53 BP 127/77 06/09/23 08:53 Pulse Ox 98 06/09/23 08:53 O2 Del Method Room Air 06/09/23 08:53 BMI result Body Mass Index 32.2 The patient is non-toxic & in good spirits NC/AT, PERRLA, EOMI Mood, affect & judgment all appear appropriate Sclera anicteric conjunctiva pink and moist Oropharynx is clear with no aphthous ulcers, Mallampati class 4, mucous membranes moist Neck is supple with no masses, adenopathy or bruits Heart is regular, normal S1-S2 no rubs or murmurs Lungs are clear and equal anteriorly with no audible wheezing, rubs or dullness to percussion Abdomen is obese with a reducible, nontender umbilical hernias. There is a well-healed midline incision. The patient reports bilateral abdominal disco mfort. No HSM, rebound, rigidity, guarding, masses or bruits are present. Rectal exam is deferred Skin has good turgor and is free of rashes Extremities free of cyanosis clubbing edema Results Labs 06/09/23 08:37 06/09/23 08:36 Labs: Abnormal lab results 06/09/23 06/09/23 06/09/23 Range/Units 08:36 08:37 08:37 WBC 3.7 L (4.8-10.8) X10*3/uL MCV 78.4 L (80.0-98.0) fL MCH 26.9 L (27.0-33.0) pg MPV 9.1 L (9.4-12.3) fL Absolute Neuts (auto) 1.8 L (2.0-8.3) x10*3/uL Alkaline Phosphatase 120 H (39-117) U/L Ur Specific [place] >= 1.030 H (1.005-1.025) Short CBC 06/09/23 Range/Units 08:37 WBC 3.7 L (4.8-10.8) X10*3/uL Hgb 13.2 (12.0-16.0) g/dl Hct 38.5 (37.0-47.0) % Plt Count 233 (160-400) X10*3/uL BMP 06/09/23 08:36 Sodium 140 Potassium 4.1 Chloride 107 Carbon Dioxide 23 BUN 14 Creatinine 0.87 Calcium 10.2 Liver Function 06/09/23 Range/Units 08:36 Total Bilirubin 0.7 (0.0-1.0) mg/dL Direct Bilirubin 0.3 (0.0-0.5) mg/dL AST 23 (5-31) U/L ALT 25 (0-31) U/L Alkaline Phosphatase 120 H (39-117) U/L Albumin 4.7 (3.5-5.0) g/dL Urine 06/09/23 Range/Units 08:37 Urine Color Dark Yellow Urine Appearance Cloudy Urine pH 5.5 (5.0-9.0) Ur Specific [place] >= 1.030 H (1.005-1.025) Urine Protein Trace (Neg-Trace) mg/dL Urine Glucose (UA) Negative (Negative) mg/dL All other labs normal. Imaging Abdomen CT scan report/results: report reviewed and image reviewed CT scan - pelvis: report reviewed and image reviewed Assessment and Plan (1) Acid reflux: Status: Acute (2) Abdominal pain: Status: Acute (3) Fibromyalgia: Status: Acute (4) Hypertension: Status: Acute Plan There is no acute surgical pathology to explain the patient's ongoing abdominal complaints. In reviewing the prior CT, both myself and the radiologist notes there is no significant change to the January, CT. Discuss the case with Lina Li; patient will be re-evaluated after she moves her bowels, given clears and can be discharged since there are no acute surgical issues. Alternately, if the patient fails PO challenge, consider medical evaluation and admission. Patient can follow up with Dr. Gorman on an outpatient basis. Time Spent With Patient Time: Total time managing care of this patient today ____ minutes. Procedures Date of Service Date of Service: 06/09/23
== END 2023-06-09 13:20 | disposition home or self-care (01) ==
PROVIDERS: Physician Assistant Medical; Emergency Provider Emergency Medicine; PCP Internal Medicine Geriatric Medicine
DX: K21.9 Gastro-esophageal reflux disease without esophagitis (principal); R10.9 Unspecified abdominal pain; I10 Essential (primary) hypertension; Z79.899 Other long term (current) drug therapy
CPT/HCPCS: 36415; 74176; 80048; 80076; 81003; 83690; 83735; 84484; 85025; 93005; 99284

== ENCOUNTER → 2023-06-09 07:35 | Outpatient (BNV) | payer MEDICAID, SELFPAY | PROVIDERS: Emergency Provider Emergency Medicine; PCP Internal Medicine Geriatric Medicine; Visit Provider Surgery | DX: K21.9 Gastro-esophageal reflux disease without esophagitis (principal); R10.9 Unspecified abdominal pain; M79.7 Fibromyalgia; I10 Essential (primary) hypertension | CPT/HCPCS: 99284 ==

== ENCOUNTER 2023-08-02 10:07 | Outpatient (REF) | payer MEDICAID, SELFPAY ==
[2023-08-02 11:27] LABS: MANUAL DIFF FLAG NO
[2023-08-02 11:47] LABS: Basophils Absolute Auto 0.1 X10*3/uL (0.0-0.2); Basophils Percent Auto 1.5 % (0-2); Eosinophils Absolute Auto 0.2 X10*3/uL (0.0-0.4); Eosinophils Percent Auto 5.8 % (0-4); Hemoglobin 13.4 g/dl (12.0-16.0); Imm Gran Abs Auto 0.01 X10*3/uL (0.00-0.03); Imm Gran Pct Auto 0.3 % (0.0-0.4); Lymphocytes Absolute Auto 1.6 X10*3/uL (1.2-4.9); Lymphocytes Percent Auto 39.6 % (20-40); Mean Corpuscular HGB Conc 32.7 g/dl (31.0-35.0); Mean Corpuscular Hemoglobin 25.7 pg (27.0-33.0); Mean Corpuscular Volume 78.7 fL (80.0-98.0); Mean Platelet Volume 9.2 fL (9.4-12.3); Monocytes Absolute Auto 0.4 X10*3/uL (0.1-1.2); Monocytes Percent Auto 9.8 % (2-11); Neutrophils Absolute Auto 1.7 x10*3/uL (2.0-8.3); Platelet Count 294 X10*3/uL (160-400); Red Blood Count 5.21 X10*6/uL (4.20-5.50); Red Cell Distribution Width 13.4 % (11.0-16.0)
[2023-08-02 12:30] LABS: Anion Gap 15 (12-20); Blood Urea Nitrogen 11 mg/dL (9-16); Carbon Dioxide 27 mmol/L (22-29); Chloride 100 mmol/L (96-108); Estimated Glomerular Filt Rate > 60; Glucose Random 77 mg/dL (60-115); Potassium 4.1 mmol/L (3.3-5.1); Sodium 138 mmol/L (135-145)
[2023-08-02 12:38] LABS: Vitamin D 25-OH Total 18.1 ng/mL (>30)
[2023-08-02 12:41] LABS: Vitamin B12 417 pg/mL (200-900)
== END 2023-08-02 10:08 | disposition home or self-care (01) ==
LOC: HO.HHCL 10:07
PROVIDERS: Visit Provider Internal Medicine
DX: Z13.89 Encounter for screening for other disorder (principal)
CPT/HCPCS: 36415; 80048; 82306; 82607; 85025

== ENCOUNTER 2023-10-03 09:37 | Outpatient (REF) | payer MEDICAID, SELFPAY ==
--- NOTE | ~2023-10-03 | XR_ITS ---
EXAMINATION: XR ANKLE, RIGHT CLINICAL INFORMATION: Chronic right ankle pain. COMPARISON: None available. TECHNIQUE: AP, lateral, and mortise views of the right ankle. FINDINGS: Alignment is anatomic. There are advanced degenerative changes of the hindfoot with osteophytic spurring involving the dorsal talonavicular joint as well as the tibiotalar joint. There are large plantar and posterior calcaneal spurs. No erosions. No displaced fracture. No ankle joint effusion. XR/XR ankle RT min 3V IMPRESSION: Osteoarthritis.
== END 2023-10-03 09:38 | disposition home or self-care (01) ==
LOC: HO.HHCX 09:37
PROVIDERS: Visit Provider Internal Medicine Geriatric Medicine
DX: M25.571 Pain in right ankle and joints of right foot (principal); G89.29 Other chronic pain
CPT/HCPCS: 73610

== ENCOUNTER 2024-02-14 10:56 | Outpatient (REF) | payer MEDICAID, SELFPAY ==
[2024-02-14 12:48] LABS: Anion Gap 11 (12-20); Blood Urea Nitrogen 18 mg/dL (9-16); Calcium 9.9 mg/dL (8.4-10.2); Carbon Dioxide 30 mmol/L (22-29); Chloride 106 mmol/L (96-108); Estimated Glomerular Filt Rate > 60; Glucose Random 92 mg/dL (60-115); Magnesium 1.8 mg/dL (1.6-2.6); Potassium 4.2 mmol/L (3.3-5.1); Sodium 143 mmol/L (135-145)
== END 2024-02-14 10:57 | disposition home or self-care (01) ==
LOC: HO.HHCL 10:56
PROVIDERS: Visit Provider Internal Medicine Geriatric Medicine
DX: E87.6 Hypokalemia (principal); E83.42 Hypomagnesemia
CPT/HCPCS: 36415; 80048; 83735

== ENCOUNTER 2025-09-08 10:40 | Outpatient (REF) | payer OTHER, SELFPAY ==
[2025-09-11 09:48] LABS: TS Negative Control Passed; TS Panel A 1; TS Panel B 1; TS Positive Control Passed; TSpotTB Negative (Negative)
== END 2025-09-08 10:41 | disposition home or self-care (01) ==
LOC: HO.HHCL 10:40
PROVIDERS: PCP Internal Medicine Geriatric Medicine; Visit Provider Internal Medicine Geriatric Medicine
DX: Z11.1 Encounter for screening for respiratory tuberculosis (principal)
CPT/HCPCS: 36415; 86481